=== PATIENT | female | born 1985 | race Caucasian/White ===

== ENCOUNTER 2018-04-22 10:25 | Outpatient (CLI) | payer BC, SELFPAY ==
--- NOTE | 2018-04-22 10:16 | DI.RAD_ITS ---
SYMPTOMS/DIAGNOSIS: F/U ORIF LEFT ANKLE: There are no prior comparison exams. There is swelling of both malleoli. There is hardware in both malleoli. A nondisplaced fracture of the distal fibula is faintly visible and shows healing. Lucency is faintly seen in the medial malleolus. IMPRESSION: Intact distal tibial and fibular hardware and healing fractures.
== END 2018-04-22 10:45 ==
PROVIDERS: PCP Nurse Practitioner Family; Visit Provider Orthopaedic Surgery
DX: S82.852A Displaced trimalleolar fracture of left lower leg, initial encounter for closed fracture (principal)
CPT/HCPCS: 73610

== ENCOUNTER 2018-05-20 09:55 | Outpatient (CLI) | payer BC, SELFPAY ==
--- NOTE | 2018-05-20 09:50 | DI.RAD_ITS ---
SYMPTOM/DIAGNOSIS: F/U LEFT ANKLE: When compared with the previous examination of 04/22/18, there has been no interval change in the position of the fracture fragments or orthopedic hardware.
== END 2018-05-20 10:15 ==
PROVIDERS: PCP Nurse Practitioner Family; Visit Provider Orthopaedic Surgery
DX: S82.852A Displaced trimalleolar fracture of left lower leg, initial encounter for closed fracture (principal)
CPT/HCPCS: 73610

== ENCOUNTER 2018-06-23 09:35 | Outpatient (CLI) | payer BC, SELFPAY ==
--- NOTE | 2018-06-23 09:44 | DI.RAD_ITS ---
SYMPTOM/DIAGNOSIS: F/U ORIF LEFT ANKLE LEFT ANKLE: When compared with the previous examination the medial and lateral malleolar fractures remain in excellent position. Orthopaedic hardware in place. There is nothing to suggest that healing is not progressing satisfactorily at the present time.
== END 2018-06-23 09:55 ==
PROVIDERS: PCP Nurse Practitioner Family; Visit Provider Physician Assistant
DX: S82.852D Displaced trimalleolar fracture of left lower leg, subsequent encounter for closed fracture with routine healing (principal)
CPT/HCPCS: 73610

== ENCOUNTER 2018-11-02 16:49 | Outpatient (REF) | payer BC, SELFPAY ==
[2018-11-02 21:30] LABS: TSH (W/Ref FT4) 1.62 uIU/mL (0.36-3.74)
== END 2018-11-02 17:09 ==
LOC: NCHCN 16:49
PROVIDERS: PCP Nurse Practitioner Family; Visit Provider Nurse Practitioner Family
DX: Z00.00 Encounter for general adult medical examination without abnormal findings (principal); R53.83 Other fatigue; F41.8 Other specified anxiety disorders; B00.1 Herpesviral vesicular dermatitis; L98.9 Disorder of the skin and subcutaneous tissue, unspecified; E66.9 Obesity, unspecified; M25.561 Pain in right knee
CPT/HCPCS: 84443

== ENCOUNTER 2019-02-23 14:03 | Outpatient (REF) | payer BC, SELFPAY ==
[2019-02-23 22:27] LABS: Abs Immature Grans 0.01 k/cumm (0.0-0.09); Absolute Basophil Count 0.01 k/cumm (0.0-0.2); Absolute Eosinophil Count 0.07 k/cumm (0.0-0.7); Absolute Lymphocyte Count 1.69 k/cumm (1.2-3.4); Absolute Monocyte Count 0.44 k/cumm (0.11-0.7); Absolute Neutrophil Count 4.98 k/cumm (1.2-6.7); Basophils % 0.1; HCT 40.4 % (36.0-46.0); HGB 14.5 g/dL (12.0-15.5); Immature Grans % 0.1; Lymphocytes % 23.5; Mean Corp. HGB Concentration 35.9 g/dL (32.0-36.0); Mean Corpuscular Hemoglobin 31.5 pg (27.0-33.0); Mean Corpuscular Volume 87.8 fL (80-95); Mean Platelet Volume 12.5 fL (8.0-11.0); Monocytes % 6.1; Neutrophils % 69.2; Platelet Count 282 x1000/uL (130-400); RBC Distribution Width 11.7 % (11.7-14.6)
[2019-02-23 22:34] LABS: Iron 127 ug/dL (50-170); Total Iron Binding Capacity 291 ug/dL (250-450); Transferrin Sat 44 % (15-50)
[2019-02-23 22:56] LABS: Anion Gap 11.7 mmol/L (3-11); BUN 8 mg/dL (7-18); CO2 23.3 mmol/L (21.0-32.0); CREATININE 0.76 mg/dL (0.55-1.02); Chloride 107 mmol/L (98-107); Glucose 98 mg/dL (74-106); Magnesium 1.8 mg/dL (1.8-2.4); Potassium 3.7 mmol/L (3.5-5.1); Sodium 142 mmol/L (136-145); TSH (W/Ref FT4) 1.25 uIU/mL (0.36-3.74)
== END 2019-02-23 14:23 ==
LOC: NCHCN 14:03
PROVIDERS: PCP Nurse Practitioner Family; Visit Provider Nurse Practitioner Family
DX: R51 Headache (principal)
CPT/HCPCS: 80048; 83540; 83550; 83735; 84443; 85025

== ENCOUNTER 2019-12-02 10:51 | Outpatient (REF) | payer BC, SELFPAY ==
--- NOTE | 2019-12-02 10:00 | PAPFT_PTH ---
PATIENT: Sierra Mcconnell LOC: [facility] U#:[id number] AGE/SX: 34/F ROOM: RE12/02/[address]: Dina Maciel : 1985 BED: DIS: 12/02/2019 SPEC #: [id number] RECD: 12/03/19 12:46 STATUS: MARGOT REJuan Antonio #: [id number] SULY: 12/02/19 10:[address]: Dina Maciel DEPT: [facility] Cytology RECD BY: Mary Suarez Tissues: 1 - CX/ENDOCX FOR PAP SMEARS Procedures: PAP THIN PREP/UVM Screening HPV DNA PROBE Comments: [id number] (CHLAMYDIA/GC)
[2019-12-06 12:29] LABS: Hepatitis C Ab w Rflx HCV PCR Negative (Negative)
[2019-12-06 13:45] LABS: Chlamydia Result Negative (Negative); GC Result Negative (Negative)
== END 2019-12-02 11:11 ==
LOC: NCHCN 10:51
PROVIDERS: PCP Nurse Practitioner Family; Visit Provider Nurse Practitioner Family
DX: H81.10 Benign paroxysmal vertigo, unspecified ear (principal); M76.62 Achilles tendinitis, left leg; R51 Headache; B00.1 Herpesviral vesicular dermatitis; L98.9 Disorder of the skin and subcutaneous tissue, unspecified; Z11.59 Encounter for screening for other viral diseases; Z12.4 Encounter for screening for malignant neoplasm of cervix; Z11.51 Encounter for screening for human papillomavirus (HPV)
CPT/HCPCS: 86803; 87491; 87591; 88142; 87624

== ENCOUNTER 2020-10-11 02:53 | Outpatient (CLI) | payer BC, SELFPAY ==
[2020-10-11 15:21] LABS: Kit/Specimen SENT
[2020-10-11 15:39] LABS: Abs Immature Grans 0.07 10^3/uL (0.0-0.06); Absolute Basophil Count 0.03 10^3/uL (0.0-0.2); Absolute Eosinophil Count 0.08 10^3/uL (0.0-0.7); Absolute Lymphocyte Count 1.86 10^3/uL (1.2-3.4); Absolute Monocyte Count 0.57 10^3/uL (0.1-0.8); Absolute Neutrophil Count 6.22 10^3/uL (1.2-6.7); Basophils % 0.3; Eosinophils % 0.9; HCT 38.8 % (36.0-46.0); HGB 13.9 g/dL (11.2-15.7); Immature Grans % 0.8; Lymphocytes % 21.1; MCH 31.2 pg (27.0-33.0); MCHC 35.8 % (32.0-36.0); MCV 87.2 fL (80-95); MPV 11.3 fL (8.0-11.0); Monocytes % 6.5; Neutrophils % 70.4; Nucleated RBC 0 %; Platelet Count 217 10^3/uL (130-400); RBC 4.45 10^6/uL (3.93-5.22); RDW 12.3 % (11.7-14.6); RDW-SD 39.1 fL; WBC 8.83 10^3/uL (4.4-10.8)
[2020-10-11 16:17] LABS: TSH (W/Ref FT4) 1.38 uIU/mL (0.36-3.74)
[2020-10-12 10:37] LABS: Hepatitis B Surface Ag Negative (Negative)
[2020-10-12 10:45] LABS: Hepatitis C Ab w Rflx HCV PCR Negative (Negative)
[2020-10-12 11:04] LABS: HIV-1/2 Ag & Ab Screen Negative (Negative)
[2020-10-12 11:08] LABS: Rubella IgG Ab (UVM) Positive (See Note)
[2020-10-12 12:50] LABS: Varicella IgG Antibody Positive (See Note)
[2020-10-13 10:32] LABS: Syphilis Total Ab w/Reflex Nonreactive (Nonreactive)
[2020-10-17 17:35] LABS: Specimen WB Whole Blood
[2020-10-20 14:13] LABS: Result Summary NEGATIVE; Specimen WB Whole Blood
== END 2020-10-11 02:54 | disposition home or self-care (01) ==
LOC: LBO 02:53
PROVIDERS: PCP Nurse Practitioner Family; Visit Provider Advanced Practice Midwife
DX: Z34.91 Encounter for supervision of normal pregnancy, unspecified, first trimester (principal); Z36.89 Encounter for other specified antenatal screening; Z11.4 Encounter for screening for human immunodeficiency virus [HIV]; Z11.59 Encounter for screening for other viral diseases; Z01.84 Encounter for antibody response examination
CPT/HCPCS: 81329; 86787; 86803; 86850; 86900; 86901; 87340; 87389; 81220; 84443; 85025; 86762; 86780

== ENCOUNTER 2020-10-11 16:03 | Outpatient (REF) | payer BC, SELFPAY ==
[2020-10-11 16:09] LABS: *AMPHETAMINES SCREEN URINE Negative (Negative); *BARBITURATES SCREEN URINE Negative (Negative); *BENZODIAZEPINES SCREEN URINE Negative (Negative); Cannabinoids THC Negative (Negative); Cocaine Screen,Urine Negative (Negative); METHADONE URINE SCREEN Negative (Negative); OPIATES URINE SCREEN Negative (Negative)
[2020-10-11 16:10] LABS: Tricyclic Antidepressants Negative (Negative)
[2020-10-18 10:03] LABS: Buprenorphine Negative ng/mL (Cutoff: 5.0); Norbuprenorphine Negative ng/mL (Cutoff: 2.5)
== END 2020-10-11 16:04 | disposition home or self-care (01) ==
LOC: LBN 16:03
PROVIDERS: PCP Nurse Practitioner Family; Visit Provider Advanced Practice Midwife
DX: Z34.91 Encounter for supervision of normal pregnancy, unspecified, first trimester (principal)
CPT/HCPCS: 80307; 87086

== ENCOUNTER 2021-02-05 01:51 | Outpatient (CLI) | payer BC, SELFPAY ==
--- NOTE | 2021-02-05 06:00 | DI.US_ITS ---
Exam(s) US OB EVONNE WEIGHT EXAM: US OB EVONNE WEIGHT CLINICAL HISTORY: growth and placental location,Z34.90. TECHNIQUE: Transabdominal obstetrical ultrasound was performed. COMPARISON: US US OB 2-3 TRIMESTER from 12/01/2020 FINDINGS: There is a single viable intrauterine gestation with cardiac activity identified-141 bpm The fetus is presently in trans position . Amniotic fluid: There is a normal amount of amniotic fluid with an EVONNE of 19.2cm. Placental location: The placenta is posterior grade 0-1,with no evidence of placenta previa.The dista nce from the tip of the placenta to the internal cervical os is [address] this at approximately 20 weeks and 6 days gestational age, implying DANIEL of April 24, 2021. BPD measures 29 weeks and 3 days HC measures 30 weeks AC measures 27 weeks and 6 days FL measures 27 weeks and 6 days Estimated weight is 1188 gm-2 pounds, 10 ounces Fetus is at the 56th percentile on the Hadlock scale. IMPRESSION:: Viable intrauterine gestation, as described above. Normal amount of amniotic fluid Posterior placenta with no evidence of placenta previa. Fetus is at the 56th percentile on the Hadlock scale. DATA REPOSITORY:
== END 2021-02-05 02:11 ==
PROVIDERS: PCP Nurse Practitioner Family; Visit Provider Advanced Practice Midwife
DX: Z34.92 Encounter for supervision of normal pregnancy, unspecified, second trimester (principal)
CPT/HCPCS: 76816

== ENCOUNTER 2021-02-06 02:15 | Outpatient (CLI) | payer BC, SELFPAY ==
[2021-02-06 08:42] LABS: HCT 39.6 % (36.0-46.0); HGB 13.7 g/dL (11.2-15.7); MCH 31.8 pg (27.0-33.0); MCHC 34.6 % (32.0-36.0); MCV 91.9 fL (80-95); Platelet Count 177 10^3/uL (130-400); RBC 4.31 10^6/uL (3.93-5.22); RDW 12.3 % (11.7-14.6); RDW-SD 41.1 fL; WBC 9.96 10^3/uL (4.4-10.8)
[2021-02-06 08:48] LABS: Glucose,1 Hr (Glucola) 101 mg/dL (80-140)
== END 2021-02-06 02:16 | disposition home or self-care (01) ==
LOC: LBO 02:15
PROVIDERS: PCP Nurse Practitioner Family; Visit Provider Advanced Practice Midwife
DX: Z34.92 Encounter for supervision of normal pregnancy, unspecified, second trimester (principal)
CPT/HCPCS: 36415; 82950; 85027; 86850; 90384

== ENCOUNTER 2021-02-09 16:20 | Outpatient (CLI) | payer BC, SELFPAY ==
[2021-02-09 16:27] VITALS: BP 135/81; PULSE 80; TEMP 36.6
--- NOTE | 2021-02-09 16:57 | W.OBNST ---
Date of service: 02/09/21 Time of Service: 16:40 NST Evaluation Reason for NST Reasons for Nonstress Test: DECREASED MOVEMENT Gestational Age Gestational Age in Weeks and Days: 28 Weeks and 2Days Test and Monitor Explained Test/Monitor Explained: Test Explained, Monitor Explained and Patient Verbalized Understanding Vital Signs Blood Pressure: 135/81 Pulse: 80 Temperature: 97.9 F NST Information Date on Monitor: 02/09/21 Time on Monitor: 16:24 Date off Monitor: 02/09/21 Time off Monitor: 16:45 Total Time on Monitor: 21 NST Interventions: PO Hydration and Other Contraction Frequency: 0 NST Evaluation Patient States Movement: Present FHR Baseline: 130 Variability: Moderate 6-25 bpm Accelerations: 10x10 Decelerations: None NST Results: Reactive Note NST Note Note: Sierra presented after hours for NST due to reported decreased movement today. NST is reactive and reassuring and patient is aware of movement once on monitor. She is reassured and discharged to home to return for next scheduled visit. EDWARD NST Reviewed and Verified by: Vielka Riojas
[2021-02-09 16:58] VITALS: BP 135/81; PULSE 80; TEMP 36.6
== END 2021-02-09 16:50 | disposition home or self-care (01) ==
LOC: BCD 16:21 → OBS 16:22
PROVIDERS: PCP Nurse Practitioner Family; Visit Provider Obstetrics & Gynecology Gynecology
DX: O36.8130 Decreased fetal movements, third trimester, not applicable or unspecified (principal); Z3A.28 28 weeks gestation of pregnancy
CPT/HCPCS: 59025

== ENCOUNTER 2021-04-04 18:06 | Outpatient (REF) | payer BC, SELFPAY ==
[2021-04-04 18:21] LABS: *AMPHETAMINES SCREEN URINE Negative (Negative); *BARBITURATES SCREEN URINE Negative (Negative); *BENZODIAZEPINES SCREEN URINE Negative (Negative); Cannabinoids THC Negative (Negative); Cocaine Screen,Urine Negative (Negative); METHADONE URINE SCREEN Negative (Negative); OPIATES URINE SCREEN Negative (Negative)
[2021-04-04 18:29] LABS: Tricyclic Antidepressants Negative (Negative)
[2021-04-13 12:23] LABS: Buprenorphine Negative ng/mL (Cutoff: 5.0); Norbuprenorphine Negative ng/mL (Cutoff: 2.5)
== END 2021-04-04 18:07 | disposition home or self-care (01) ==
LOC: LBN 18:06
PROVIDERS: PCP Nurse Practitioner Family; Visit Provider Advanced Practice Midwife
DX: Z34.93 Encounter for supervision of normal pregnancy, unspecified, third trimester (principal)
CPT/HCPCS: 80307; 87081

== ENCOUNTER 2021-04-18 15:56 | Outpatient (CLI) | payer BC, SELFPAY ==
[2021-04-18 16:11] VITALS: BP 138/83; PULSE 92
[2021-04-18 16:25] VITALS: BP 150/84; PULSE 82
[2021-04-18 16:45] VITALS: BP 138/84; PULSE 82; TEMP 36.5
[2021-04-18 16:46] VITALS: BP 136/86; PULSE 86
[2021-04-18 17:09] LABS: HCT 39.9 % (36.0-46.0); HGB 14.1 g/dL (11.2-15.7); MCH 32.2 pg (27.0-33.0); MCHC 35.3 % (32.0-36.0); MCV 91.1 fL (80-95); MPV 11.4 fL (8.0-11.0); Platelet Count 151 10^3/uL (130-400); RBC 4.38 10^6/uL (3.93-5.22); RDW 12.7 % (11.7-14.6); RDW-SD 41.3 fL; WBC 9.65 10^3/uL (4.4-10.8)
[2021-04-18 17:16] LABS: COMMENT (LAB VIEW ONLY) 26.42 mg/dL; PROTEIN < 6.0 mg/dL
[2021-04-18 17:21] LABS: ALT 49 U/L (14-59); AST 23 U/L (15-37); Albumin 2.8 g/dL (3.4-5.0); Alkaline Phosphatase 111 U/L (46-116); Anion Gap 10.9 mmol/L (3-11); BUN 8 mg/dL (7-18); Bilirubin, Total 0.5 mg/dL (0.2-1.0); CO2 22.1 mmol/L (21.0-32.0); CREATININE 0.5 mg/dL (0.55-1.02); Calcium 8.3 mg/dL (8.5-10.1); Chloride 104 mmol/L (98-107); Glucose 104 mg/dL (74-106); Potassium 3.5 mmol/L (3.5-5.1); Sodium 137 mmol/L (136-145); Total Protein 6.5 g/dL (6.4-8.2); Uric Acid 4.1 mg/dL (2.6-6.0)
--- NOTE | 2021-04-18 17:28 | W.OBNST ---
Date of service: 04/18/21 Time of Service: 17:28 NST Evaluation Reason for NST Reasons for Nonstress Test: OTHER, SEE COMMENT Reason for NST Other: Elevated BP in office Gestational Age Gestational Age in Weeks and Days: 38 Weeks and 0Days Test and Monitor Explained Test/Monitor Explained: Test Explained, Monitor Explained and Patient Verbalized Understanding Vital Signs Blood Pressure: 138/84 Pulse: 82 Temperature: 97.7 F Urine Results Urine Protein: Negative Urine Ketones: Negative Urine Glucose: Negative Urine Blood: Negative NST Information Date on Monitor: 04/18/21 Time on Monitor: 16:03 Date off Monitor: 04/18/21 Time off Monitor: 17:00 Total Time on Monitor: 57 NST Interventions: PO Hydration and Notify Provider Contraction Frequency: none NST Evaluation Patient States Movement: Present FHR Baseline: 125 Variability: Moderate 6-25 bpm Accelerations: 15x15 Decelerations: None NST Results: Reactive Note NST Note Note: B.P. elevated at the office. NST reactive. B.P. recheck was 136/86. Preeclampsia labs drawn. No edema, Denies headache or visual changes. Await results. NST Reviewed and Verified by: Vielka Gallardo
[2021-04-18 17:29] VITALS: BP 138/84; PULSE 82; TEMP 36.5
== END 2021-04-18 17:15 | disposition home or self-care (01) ==
LOC: BCD 15:58 → OBS 16:00
PROVIDERS: PCP Nurse Practitioner Family; Visit Provider Advanced Practice Midwife
DX: O26.893 Other specified pregnancy related conditions, third trimester (principal); R03.0 Elevated blood-pressure reading, without diagnosis of hypertension; Z3A.38 38 weeks gestation of pregnancy
CPT/HCPCS: 59025; 80053; 85027; 82565; 84156; 84550

== ENCOUNTER 2021-04-21 09:44 | Inpatient (IN) | payer BC, SELFPAY ==
[2021-04-21] VITALS (11 sets, daily range): BP systolic 129–157; BP diastolic 79–94; PULSE 76–111; RESP 16–20; TEMP 36.5–37.1; O2SAT 96–99
--- NOTE | 2021-04-21 09:59 | PDOC.NST_ITS ---
Date of service: 04/21/21 Time of Service: 09:30 NST Evaluation Reason for NST Reasons for Nonstress Test: GESTATIONAL HYPERTENSION Gestational Age Gestational Age in Weeks and Days: 38 Weeks and 3Days Test and Monitor Explained Test/Monitor Explained: Test Explained, Monitor Explained and Patient Verbalized Understanding NST Information Date on Monitor: 04/21/21 Time on Monitor: 08:03 Date off Monitor: 04/21/21 Time off Monitor: 08:36 Total Time on Monitor: 33 NST Interventions: PO Hydration NST Evaluation Patient States Movement: Present FHR Baseline: 130 Variability: Moderate 6-25 bpm Accelerations: 15x15 Decelerations: None NST Results: Reactive Note NST Note Note: NST due to gestational hypertension. No signs of pre-eclampsia and patient had negative pre-eclampsia lab work up 3 days ago. Today NST is reactive and reassuring. BP is 150/90 and 147/89. 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 Patel. We plan to move forward with cervical ripening and induction of labor due to BP's. VE closed /50/ medium consistency/ VTX -2. / cervix mid position. Admission plan reviewed with patient who agrees to this plan. EDWARD NST Reviewed and Verified by: Vielka Riojas
--- NOTE | 2021-04-21 10:02 | HPE_ITS ---
Date of service: 04/21/21 Time of Service: 10:02 Assessment and Plan Assessment and plan (1) Gestational hypertension, third trimester: Start date: 04/21/21 Start time: 10:15 Status: Acute Assessment and plan: 1. Reviewed diagnosis and risk of expectant management vs risk of induction of labor with patient, patient verbalizes understanding and agrees to move forward with induction of labor. 2. Consult with Dr. Patel has been done and agrees to my plan to do cervical ripening and move toward delivery. 3. Pre-eclampsia signs are negative but will repeat labs with admission labs today. 4. COVID screen done. 5. Will place cervidil and reassess in 12 hours for change in cervix or as indicated by maternal / condition. 6. Expect vaginal delivery. EDWARD OB-HPI Labor/Delivery History of Present Illness Reason for Visit: NST Chief Complaint: Other (unscheduled cervical ripening and induction of labor due to gestational hypertension.EDWARD). DANIEL Calculator Estimated Delivery Date Method Current WG Current Estimate 05/02/21 LMP (Certain) 38w 3d Other Estimates 04/29/21 Ultrasound #1 38w 6d Comments: Sierra presented to for NST due to elevated BP in office 04/18/21. She had NST that day and pre-eclampsia work up which was negative for pre- eclampsia. She presents today with BP 157/93 with repeat of 151/91 and 146/94. These BP's are elevated from BP's on 04/18/21 of 138/83 and 136/86. Today she continues to deny any symptoms of pre-eclampsia and her urine dip remains negative for protein. Diagnosis of gestational hypertension made. 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 Admission today with COVID test and pre-eclampsia labs repeated with admission labs. Will place cervidil and reassess cervix 12 hours after insertion and determine plan of care at that time. EDWARD History of Present Expected Delivery Route/Plan - CNM FOB/boyfriend - Bryan Angela (first child) BB- Ramón, yes to circ GBS negative Hopes to use tub, nitrous, have unmedicated Specific Issues/Plan 1. Desires all genetic screening, drawn 10/11/20 1a. CF & SMA negative, [place] low prob x3, male fetus 2. Rh neg, discuss with Anne Esquivel @ 28 wks- received. 3. Posterior placental tip is 2 cm from internal os at 18 wk sono 3a. Scan repeated at 28 wks 02/05: placental tip 4 cm from os, not low lying. EVONNE 19, 56th percentile growth 4. Back pain - PT visits and does stretches at home - wears a abdominal support. 5. Lower abominal discomfort - relieved by abdominal support 6. Sierra and Bryan received covid vaccine. Sierra will be receiving the booster. Sierra recieved TDAP 6a. Covid exposure - quarantine and testing. 7. History of anxiety - reviewed symptoms of post mood disorders Assessment: History Reviewed & Current Informed Consent Informed Consent: Section Delivery (discussed there is some increased risk of delivery due to induction, verbalizes understanding.), Induction of Labor (discussed diagnosis of gestational hypertension and cervical ripening and pitocin induction, discussed risks, benefits and alternatives. Patient agrees to move forward at this time. KH) and Risk,Benefits,Alternatives Discussed Review of Systems All systems reviewed & are unremarkable except as noted in HPI and below PFSH All Active Problems Gestational hypertension, third trimester (Acute) Closed trimalleolar fracture of left ankle (Acute) ORIF: 04/08/18 Location: [place], [place] History of ankle surgery (Acute) Family history of genetic disorder (Acute) Change in skin mole (Acute) Back pain affecting in second trimester (Acute) Rh negative state in antepartum period (Acute) (Acute) Family History Maternal Cousin Potter syndrome x 2 pregnancies - Mat cousins children x 2 Other abnormal clinical finding Maternal cousin with a disorder of muscle fibers, unable to walk or speak Maternal Cousin Muscular dystrophy Mother Thyroid disease Sister Thyroid disease Sister Thyroid disease graves Maternal Aunt Bipolar 1 disorder Sister Depression Social History Smoking risk assessment performed?: No History History 2 Para 0 Hx # Term Pregnancies 0 Multiple births 0 Hx # Pregnancies 0 Ectopic pregnancies 0 AB induced 1 Hx Number of Living Children 0 AB spontaneous 0 Meds Allergies and Home Medications Allergies Allergy/AdvReac Type Severity Reaction Status Date / Time No Known Allergies Allergy Verified 04/21/21 10:14 Home Medications Medication Instructions Recorded Confirmed Type prenat.vits,shaheed,ost-ynma-keccl 1 tab PO DAILY 08/23/20 04/21/21 History Exam Physical Exam Vital signs: Pulse BP 97 H 146/94 H 04/21/21 08:30 04/21/21 08:40 Vital Signs Reviewed: Yes Constitutional Constitutional: no acute distress (anxious about need to deliver before her due date but otherwise feels well. KH) Detailed Labor and Delivery Exam Dilation: 0 Effacement (%): 50 station: -2 Cervix position: mid Consistency: medium Gallardo Score: Cervical Points Exam 0 1 2 3 Dilation Closed 1-2cm 3-4 cm 5-6cm Effacement 0-30% 40-50% 60-70% 80% Consistency Firm Medium Soft Station -3 -2 -1,0 +1,+2 Position Posterior Mid Anterior GALLARDO Score(Cervical Ripeness Score): 4 Amniotic Membrane Status: Intact Contraction Frequency(min): 0 Fetus A Heart Rate Baseline: 130 Monitor Accelerations: 15 X 15 Monitor Decelerations: None Variability: Moderate (6-25 BPM) Presentation: Vertex (confirmed by US, LENKA) Est. Weight: 7 lb HEENT Exam HEENT Exam: Normal Neck Exam Neck Exam: Normal Chest/Brest/Axilla Exam Chest Exam: Normal Breast Exam Breast Exam: Not Done Respiratory Exam Respiratory Exam: Normal Cardiovascular Exam Cardiovascular Exam: Normal (Heart RRR, no murmur, BP elevated) Abdominal Exam Abdominal Exam: Normal Rectal Exam Rectal Exam: Not Done Exam Exam: Normal Extremities Exam Extremities Exam: Normal Back/Spine/Pelvis Exam Back Exam: Not Done Pelvis Adequate: Yes Skin Exam Skin Exam: Normal Neurological Exam Neurological Exam: Normal Detailed Neurological Exam Neurological: Present alert, oriented X3, normal reflexes, normal tone, vision grossly intact, hearing grossly intact and normal speech Psychiatric Exam Psychiatric Exam: Normal Results Results Group Beta Strep: Negative Blood Type: O- Rubella Status: Immune Varicella Immunity: Immune Risk Assessment Risk for Shoulder Dystocia Historical/Initial OB: NEGATIVE FOR: Pelvic Abnormality, Pre- BMI>30, Previous Shoulder Dystocia or Previous Macrosomia 40 Weeks: NEGATIVE FOR: EFW> 4500 gms, Maternal Weight Gain >40lb or Post Dates Increased Risk?: No Delivery Plan @ 36wks: NVD anticipated. EDWARD Delivery Plan @ 40 wks: IOL at 38w 3d due to gestational hypertension without significant proteinuria Risk for Pre-Eclampsia Date Initiated/Initials: not indicated. jk Yes, if one or more: NEGATIVE FOR: Hx Pre-E/Gest HTN, Chronic HTN, Multiple Gestation, Pre-gestational DM, Renal Disease, Systemic Lupus or APA Syndrome Yes, if 2 or more: POSITIVE FOR: Nulliparity; NEGATIVE FOR: Age>= 35 yrs, >10yr btwn pregnancies, BMI>30, ethinicty, Mother/Sister w/ Pre-E or Previous IUGR Risk for Post- Hemorrhage Initial: NEGATIVE FOR: Multiple Gestation, Previous PPH, Known Clotting Deficiency, Grand Multiparity or Anticoagulation At Risk?: Yes (slight increased risk at admission due to need for cervical ripe katherine ) Counseled re: Active Management: Yes Date/Initials: 04/21/21 EDWARD Risks Reviewed Risks Reviewed Upon Admission: Yes
[2021-04-21 10:27] LABS: Source Nasal/Nares
[2021-04-21 10:31] LABS: HCT 41.8 % (36.0-46.0); HGB 14.5 g/dL (11.2-15.7); MCH 31.5 pg (27.0-33.0); MCHC 34.7 % (32.0-36.0); MCV 90.7 fL (80-95); Platelet Count 162 10^3/uL (130-400); RBC 4.61 10^6/uL (3.93-5.22); RDW 12.6 % (11.7-14.6); RDW-SD 41.2 fL; WBC 10.58 10^3/uL (4.4-10.8)
[2021-04-21 10:43] LABS: ALT 40 U/L (14-59); AST 23 U/L (15-37); Albumin 2.9 g/dL (3.4-5.0); Alkaline Phosphatase 112 U/L (46-116); Anion Gap 9.8 mmol/L (3-11); BUN 6 mg/dL (7-18); Bilirubin, Total 0.6 mg/dL (0.2-1.0); CO2 21.2 mmol/L (21.0-32.0); CREATININE 0.5 mg/dL (0.55-1.02); Calcium 8.8 mg/dL (8.5-10.1); Chloride 105 mmol/L (98-107); Glucose 84 mg/dL (74-106); LDH 168 U/L (81-234); Potassium 3.7 mmol/L (3.5-5.1); Sodium 136 mmol/L (136-145); Total Protein 6.6 g/dL (6.4-8.2); Uric Acid 4.3 mg/dL (2.6-6.0)
[2021-04-21 11:08] LABS: COVID-19 PCR Negative (Negative)
--- NOTE | 2021-04-21 11:15 | PGE_ITS ---
Date of service: 04/21/21 Time of Service: 11:15 Informed Consent Informed Consent: Section Delivery (discussed there is some increased risk of delivery due to induction, verbalizes understanding.), Induction of Labor (discussed diagnosis of gestational hypertension and cervical ripening and pitocin induction, discussed risks, benefits and alternatives. Patient agrees to move forward at this time. KH) and Risk,Benefits,Alternatives Discussed Contractions Monitor Mode: External Contraction Frequency(min): 0 Fetus A Monitor: External (US) Heart Rate Baseline: 120 Presentation: Cephalic Variability: Moderate (6-25 BPM) Categories: Category I Accelerations: 15 X 15 Decelerations: None Assessment and Plan Assessment and plan (1) Gestational hypertension, third trimester: Start date: 04/21/21 Start time: :18 Status: Acute Assessment and plan: 1. Cervidil is not available at this time for administration per pharmacy, aligner typewriter will change order to misoprostol PO and rev iewed medication change and use/expected outcome with patient and her , Bryan, who verbalize understanding and agree to this change in plan. KH Objective Abnormal lab results 04/21/21 04/21/21 Range/Units 10:20 10:20 MPV 12.0 H (8.0-11.0) fL BUN 6 L (7-18) mg/dL Creatinine 0.5 L (0.55-1.02) mg/dL Albumin 2.9 L (3.4-5.0) g/dL Pulse BP 97 H 146/94 H 04/21/21 08:30 04/21/21 08:40 Laboratory Results WBC 10.58 10^3/uL (4.4-10.8) 04/21/21 10:20 RBC 4.61 10^6/uL (3.93-5.22) 04/21/21 10:20 Hgb 14.5 g/dL (11.2-15.7) 04/21/21 10:20 Hct 41.8 % (36.0-46.0) 04/21/21 10:20 MCV 90.7 fL (80-95) 04/21/21 10:20 MCH 31.5 pg (27.0-33.0) 04/21/21 10:20 MCHC 34.7 % (32.0-36.0) 04/21/21 10:20 RDW 12.6 % (11.7-14.6) 04/21/21 10:20 Plt Count 162 10^3/uL (130-400) 04/21/21 10:20 MPV 12.0 fL (8.0-11.0) H 04/21/21 10:20 Sodium 136 mmol/L (136-145) 04/21/21 10:20 Potassium 3.7 mmol/L (3.5-5.1) 04/21/21 10:20 Chloride 105 mmol/L (98-107) 04/21/21 10:20 Carbon Dioxide 21.2 mmol/L (21.0-32.0) 04/21/21 10:20 Anion Gap 9.8 mmol/L (3-11) 04/21/21 10:20 BUN 6 mg/dL (7-18) L 04/21/21 10:20 Creatinine 0.5 mg/dL (0.55-1.02) L 04/21/21 10:20 Estimated GFR/1.73 m2 >= 60.00 (mL/min/1.73m2) 04/21/21 10:20 Glucose 84 mg/dL (74-106) 04/21/21 10:20 Uric Acid 4.3 mg/dL (2.6-6.0) 04/21/21 10:20 Calcium 8.8 mg/dL (8.5-10.1) 04/21/21 10:20 Total Bilirubin 0.6 mg/dL (0.2-1.0) 04/21/21 10:20 AST 23 U/L (15-37) 04/21/21 10:20 ALT 40 U/L (14-59) 04/21/21 10:20 Alkaline Phosphatase 112 U/L (46-116) 04/21/21 10:20 Lactate Dehydrogenase 168 U/L (81-234) 04/21/21 10:20 Total Protein 6.6 g/dL (6.4-8.2) 04/21/21 10:20 Albumin 2.9 g/dL (3.4-5.0) L 04/21/21 10:20 COVID-19 Source Nasal/Nares 04/21/21 10:10 SARS-CoV-2 (PCR) Negative (Negative) 04/21/21 10:10 Vital Signs Reviewed: Yes Objective Narrative Objective Narrative: repeat BP pending at this time. 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 EDWARD . Results Hemoglobin/Hematocrit: Hgb 14.5 g/dL (11.2-15.7) 04/21/21 10:20 Hct 41.8 % (36.0-46.0) 04/21/21 10:20 Abnormal Lab Findings: Abnormal Labs 04/21/21 04/21/21 10:20 10:20 MPV 12.0 H BUN 6 L Creatinine 0.5 L Albumin 2.9 L
[2021-04-21] MEDS: miSOPROStol 25 MCG TAB PO ×4 (11:33→23:53)
[2021-04-21 14:58] LABS: COMMENT (LAB VIEW ONLY) 10.29 mg/dL; PROTEIN < 6.0 mg/dL
--- NOTE | 2021-04-21 15:21 | W.PM.OBNL1 ---
Date of service: 04/21/21 Time of Service: 15:21 Informed Consent Informed Consent: Section Delivery (discussed there is some increased risk of delivery due to induction, verbalizes understanding.), Induction of Labor (discussed diagnosis of gestational hypertension and cervical ripening and pitocin induction, discussed risks, benefits and alternatives. Patient agrees to move forward at this time. KH) and Risk,Benefits,Alternatives Discussed Pelvic Exam Comments: VE deferred. KH Contractions Monitor Mode: External Contraction Frequency(min): irregular Intensity: Mild Fetus A Monitor: External (US) Heart Rate Baseline: 130 Presentation: Cephalic Variability: Moderate (6-25 BPM) Categories: Category I Decelerations: None Assessment and Plan Assessment and plan (1) Gestational hypertension, third trimester: Status: Acute Assessment and plan: 1. continue with misoprostol 25 mcg orally every 4 hours for a total of 4 doses then encourage sleep overnight with restart of cervical ripening in am 2. BP stabilized with rest. 129/88 at this time, patient denies FERNANDEZ, visual disturbance or epigastric pain, has been able to nap some KH Objective Abnormal lab results 04/21/21 04/21/21 Range/Units 10:20 10:20 MPV 12.0 H (8.0-11.0) fL BUN 6 L (7-18) mg/dL Creatinine 0.5 L (0.55-1.02) mg/dL Albumin 2.9 L (3.4-5.0) g/dL Temp Pulse Resp BP 97.9 F 91 H 16 129/88 04/21/21 13:31 04/21/21 15:20 04/21/21 11:37 04/21/21 15:20 Laboratory Results WBC 10.58 10^3/uL (4.4-10.8) 04/21/21 10:20 RBC 4.61 10^6/uL (3.93-5.22) 04/21/21 10:20 Hgb 14.5 g/dL (11.2-15.7) 04/21/21 10:20 Hct 41.8 % (36.0-46.0) 04/21/21 10:20 MCV 90.7 fL (80-95) 04/21/21 10:20 MCH 31.5 pg (27.0-33.0) 04/21/21 10:20 MCHC 34.7 % (32.0-36.0) 04/21/21 10:20 RDW 12.6 % (11.7-14.6) 04/21/21 10:20 Plt Count 162 10^3/uL (130-400) 04/21/21 10:20 MPV 12.0 fL (8.0-11.0) H 04/21/21 10:20 Sodium 136 mmol/L (136-145) 04/21/21 10:20 Potassium 3.7 mmol/L (3.5-5.1) 04/21/21 10:20 Chloride 105 mmol/L (98-107) 04/21/21 10:20 Carbon Dioxide 21.2 mmol/L (21.0-32.0) 04/21/21 10:20 Anion Gap 9.8 mmol/L (3-11) 04/21/21 10:20 BUN 6 mg/dL (7-18) L 04/21/21 10:20 Creatinine 0.5 mg/dL (0.55-1.02) L 04/21/21 10:20 Estimated GFR/1.73 m2 >= 60.00 (mL/min/1.73m2) 04/21/21 10:20 Glucose 84 mg/dL (74-106) 04/21/21 10:20 Uric Acid 4.3 mg/dL (2.6-6.0) 04/21/21 10:20 Calcium 8.8 mg/dL (8.5-10.1) 04/21/21 10:20 Total Bilirubin 0.6 mg/dL (0.2-1.0) 04/21/21 10:20 AST 23 U/L (15-37) 04/21/21 10:20 ALT 40 U/L (14-59) 04/21/21 10:20 Alkaline Phosphatase 112 U/L (46-116) 04/21/21 10:20 Lactate Dehydrogenase 168 U/L (81-234) 04/21/21 10:20 Total Protein 6.6 g/dL (6.4-8.2) 04/21/21 10:20 Albumin 2.9 g/dL (3.4-5.0) L 04/21/21 10:20 Ur Random Creatinine 10.29 mg/dL 04/21/21 10:00 U Random Total Protein < 6.0 mg/dL 04/21/21 10:00 U [place] Prot/Creat Ratio 04/21/21 10:00 COVID-19 Source Nasal/Nares 04/21/21 10:10 SARS-CoV-2 (PCR) Negative (Negative) 04/21/21 10:10 Patient ABO/Rh O Negative 04/21/21 10:20 Antibody Screen NEGATIVE 04/21/21 10:20 Vital Signs Reviewed: Yes Subjective Patient Reports: No new Complaints Results Hemoglobin/Hematocrit: Hgb 14.5 g/dL (11.2-15.7) 04/21/21 10:20 Hct 41.8 % (36.0-46.0) 04/21/21 10:20 Abnormal Lab Findings: Abnormal Labs 04/21/21 04/21/21 10:20 10:20 MPV 12.0 H BUN 6 L Creatinine 0.5 L Albumin 2.9 L
[2021-04-22] VITALS (10 sets, daily range): BP systolic 124–145; BP diastolic 66–89; PULSE 74–93; RESP 16–20; TEMP 36.4–36.9; O2SAT 97–99
--- NOTE | 2021-04-22 07:44 | PGE_ITS ---
Date of service: 04/22/21 Time of Service: 07:44 Informed Consent Informed Consent: Section Delivery (discussed there is some increased risk of delivery due to induction, verbalizes understanding.), Induction of Labor (discussed diagnosis of gestational hypertension and cervical ripening and pitocin induction, discussed risks, benefits and alternatives. Patient agrees to move forward at this time. EDWARD) and Risk,Benefits,Alternatives Discussed Pelvic Exam Comments: deferred. KH Contractions Monitor Mode: External Contraction Frequency(min): irregular Intensity: Mild Fetus A Monitor: External (US) Heart Rate Baseline: 130 Variability: Moderate (6-25 BPM) Categories: Category I Accelerations: 15 X 15 Decelerations: None Assessment and Plan Assessment and plan (1) Gestational hypertension, third trimester: Status: Acute Assessment and plan: Will continue with misoprostol today, plan to change to 50 mcg every 4 hours for up to 3 doses and then reassess. We discussed Cook catheter as adjunct therapy for cervical ripening. Plan to repeat VE once having regular noticeable contractions today. EDWARD Objective Abnormal lab results 04/21/21 04/21/21 Range/Units 10:20 10:20 MPV 12.0 H (8.0-11.0) fL BUN 6 L (7-18) mg/dL Creatinine 0.5 L (0.55-1.02) mg/dL Albumin 2.9 L (3.4-5.0) g/dL Temp Pulse Resp BP Pulse Ox 98.2 F 93 H 16 131/71 99 04/22/21 07:39 04/22/21 07:39 04/22/21 07:39 04/22/21 07:39 04/22/21 01:55 Laboratory Results WBC 10.58 10^3/uL (4.4-10.8) 04/21/21 10:20 RBC 4.61 10^6/uL (3.93-5.22) 04/21/21 10:20 Hgb 14.5 g/dL (11.2-15.7) 04/21/21 10:20 Hct 41.8 % (36.0-46.0) 04/21/21 10:20 MCV 90.7 fL (80-95) 04/21/21 10:20 MCH 31.5 pg (27.0-33.0) 04/21/21 10:20 MCHC 34.7 % (32.0-36.0) 04/21/21 10:20 RDW 12.6 % (11.7-14.6) 04/21/21 10:20 Plt Count 162 10^3/uL (130-400) 04/21/21 10:20 MPV 12.0 fL (8.0-11.0) H 04/21/21 10:20 Sodium 136 mmol/L (136-145) 04/21/21 10:20 Potassium 3.7 mmol/L (3.5-5.1) 04/21/21 10:20 Chloride 105 mmol/L (98-107) 04/21/21 10:20 Carbon Dioxide 21.2 mmol/L (21.0-32.0) 04/21/21 10:20 Anion Gap 9.8 mmol/L (3-11) 04/21/21 10:20 BUN 6 mg/dL (7-18) L 04/21/21 10:20 Creatinine 0.5 mg/dL (0.55-1.02) L 04/21/21 10:20 Estimated GFR/1.73 m2 >= 60.00 (mL/min/1.73m2) 04/21/21 10:20 Glucose 84 mg/dL (74-106) 04/21/21 10:20 Uric Acid 4.3 mg/dL (2.6-6.0) 04/21/21 10:20 Calcium 8.8 mg/dL (8.5-10.1) 04/21/21 10:20 Total Bilirubin 0.6 mg/dL (0.2-1.0) 04/21/21 10:20 AST 23 U/L (15-37) 04/21/21 10:20 ALT 40 U/L (14-59) 04/21/21 10:20 Alkaline Phosphatase 112 U/L (46-116) 04/21/21 10:20 Lactate Dehydrogenase 168 U/L (81-234) 04/21/21 10:20 Total Protein 6.6 g/dL (6.4-8.2) 04/21/21 10:20 Albumin 2.9 g/dL (3.4-5.0) L 04/21/21 10:20 Ur Random Creatinine 10.29 mg/dL 04/21/21 10:00 U Random Total Protein < 6.0 mg/dL 04/21/21 10:00 U [place] Prot/Creat Ratio 04/21/21 10:00 COVID-19 Source Nasal/Nares 04/21/21 10:10 SARS-CoV-2 (PCR) Negative (Negative) 04/21/21 10:10 Patient ABO/Rh O Negative 04/21/21 10:20 Antibody Screen NEGATIVE 04/21/21 10:20 Vital Signs Reviewed: Yes Subjective Patient Reports: No new Complaints Interval history since last seen: Was able to sleep for a few hours. Has had some cramping but no obvious contraction discomfort. No LOF or bleeding. Continues to feel well. KH Results Hemoglobin/Hematocrit: Hgb 14.5 g/dL (11.2-15.7) 04/21/21 10:20 Hct 41.8 % (36.0-46.0) 04/21/21 10:20 Abnormal Lab Findings: Abnormal Labs 04/21/21 04/21/21 10:20 10:20 MPV 12.0 H BUN 6 L Creatinine 0.5 L Albumin 2.9 L
[2021-04-22] MEDS: miSOPROStol 50 MCG TAB PO ×3 (08:05→16:55)
--- NOTE | 2021-04-22 13:04 | PGE_ITS ---
Date of service: 04/22/21 Time of Service: 13:04 Informed Consent Informed Consent: Section Delivery (discussed there is some increased risk of delivery due to induction, verbalizes understanding.), Induction of Labor (discussed diagnosis of gestational hypertension and cervical ripening and pitocin induction, discussed risks, benefits and alternatives. Patient agrees to move forward at this time. KH) and Risk,Benefits,Alternatives Discussed Pelvic Exam Comments: VE deferred Contractions Monitor Mode: External Contraction Frequency(min): 5-10 Contraction Duration(sec): 45-90 Intensity: Mild Fetus A Monitor: External (US) Heart Rate Baseline: 125 Variability: Moderate (6-25 BPM) Categories: Category I Accelerations: 15 X 15 Assessment Note: patient is out of bed on birthing ball, there are breaks in tracing for 20-30 seconds occasionally, no verifiable deceleration. KH Assessment and Plan Assessment and plan (1) Gestational hypertension, third trimester: Status: Acute Assessment and plan: 1. Will repeat misoprostol 50 mcg at approximately 1600 2. consider VE at that time for placement of cook catheter as well 3. expect NVD. Objective Temp Pulse Resp BP Pulse Ox 97.9 F 74 16 131/78 97 04/22/21 12:09 04/22/21 12:10 04/22/21 12:09 04/22/21 12:09 04/22/21 12:10 Laboratory Results WBC 10.58 10^3/uL (4.4-10.8) 04/21/21 10:20 RBC 4.61 10^6/uL (3.93-5.22) 04/21/21 10:20 Hgb 14.5 g/dL (11.2-15.7) 04/21/21 10:20 Hct 41.8 % (36.0-46.0) 04/21/21 10:20 MCV 90.7 fL (80-95) 04/21/21 10:20 MCH 31.5 pg (27.0-33.0) 04/21/21 10:20 MCHC 34.7 % (32.0-36.0) 04/21/21 10:20 RDW 12.6 % (11.7-14.6) 04/21/21 10:20 Plt Count 162 10^3/uL (130-400) 04/21/21 10:20 MPV 12.0 fL (8.0-11.0) H 04/21/21 10:20 Sodium 136 mmol/L (136-145) 04/21/21 10:20 Potassium 3.7 mmol/L (3.5-5.1) 04/21/21 10:20 Chloride 105 mmol/L (98-107) 04/21/21 10:20 Carbon Dioxide 21.2 mmol/L (21.0-32.0) 04/21/21 10:20 Anion Gap 9.8 mmol/L (3-11) 04/21/21 10:20 BUN 6 mg/dL (7-18) L 04/21/21 10:20 Creatinine 0.5 mg/dL (0.55-1.02) L 04/21/21 10:20 Estimated GFR/1.73 m2 >= 60.00 (mL/min/1.73m2) 04/21/21 10:20 Glucose 84 mg/dL (74-106) 04/21/21 10:20 Uric Acid 4.3 mg/dL (2.6-6.0) 04/21/21 10:20 Calcium 8.8 mg/dL (8.5-10.1) 04/21/21 10:20 Total Bilirubin 0.6 mg/dL (0.2-1.0) 04/21/21 10:20 AST 23 U/L (15-37) 04/21/21 10:20 ALT 40 U/L (14-59) 04/21/21 10:20 Alkaline Phosphatase 112 U/L (46-116) 04/21/21 10:20 Lactate Dehydrogenase 168 U/L (81-234) 04/21/21 10:20 Total Protein 6.6 g/dL (6.4-8.2) 04/21/21 10:20 Albumin 2.9 g/dL (3.4-5.0) L 04/21/21 10:20 Ur Random Creatinine 10.29 mg/dL 04/21/21 10:00 U Random Total Protein < 6.0 mg/dL 04/21/21 10:00 U [place] Prot/Creat Ratio 04/21/21 10:00 COVID-19 Source Nasal/Nares 04/21/21 10:10 SARS-CoV-2 (PCR) Negative (Negative) 04/21/21 10:10 Patient ABO/Rh O Negative 04/21/21 10:20 Antibody Screen NEGATIVE 04/21/21 10:20 Vital Signs Reviewed: Yes Objective Narrative Objective Narrative: continues to feel well, no FERNANDEZ, visual disturbance or epi gastric pain. BP's remain below 160/110. KH Subjective Patient Reports: No new Complaints Interval history since last seen: reports contractions are more today than yesterday but is able to tolerate them well. She is status post 2 oral doses of 50 mcg of misoprostol today. Results Hemoglobin/Hematocrit: Hgb 14.5 g/dL (11.2-15.7) 04/21/21 10:20 Hct 41.8 % (36.0-46.0) 04/21/21 10:20 Abnormal Lab Findings: Abnormal Labs 04/21/21 04/21/21 10:20 10:20 MPV 12.0 H BUN 6 L Creatinine 0.5 L Albumin 2.9 L
--- NOTE | 2021-04-22 16:11 | PGE_ITS ---
Date of service: 04/22/21 Time of Service: 16:11 Informed Consent Informed Consent: Section Delivery (discussed there is some increased risk of delivery due to induction, verbalizes understanding.), Induction of Labor (discussed diagnosis of gestational hypertension and cervical ripening and pitocin induction, discussed risks, benefits and alternatives. Patient agrees to move forward at this time. KH) and Risk,Benefits,Alternatives Discussed Pelvic Exam Dilation: 0.5 Effacement (%): 60 station: -2 Cervix Position: posterior Consistency: medium BISHOPS Score(Cervical Ripeness Score): 4 Vaginal Exam Presentation: Cephalic Contractions Monitor Mode: External Contraction Frequency(min): irregular Intensity: Mild Fetus A Heart Rate Baseline: 125 Variability: Moderate (6-25 BPM) Categories: Category I Accelerations: 15 X 15 Decelerations: None Assessment and Plan Assessment and plan (1) Gestational hypertension, third trimester: Status: Acute Assessment and plan: 1. Will do 3rd dose of misoprostol 50 mcg 30 minutes after Cook catheter which was placed by customs entry writer and both uterine and vaginal balloons were filled with 60 cc of NS. Patient tolerated well 2. Will reassess in 4 hours with plan to allow for rest or if more uncomfortable but not in active labor will begin pitocin. KH Objective Temp Pulse Resp BP Pulse Ox 98.4 F 79 16 133/79 97 04/22/21 13:56 04/22/21 13:56 04/22/21 12:09 04/22/21 13:56 04/22/21 12:10 Laboratory Results WBC 10.58 10^3/uL (4.4-10.8) 04/21/21 10:20 RBC 4.61 10^6/uL (3.93-5.22) 04/21/21 10:20 Hgb 14.5 g/dL (11.2-15.7) 04/21/21 10:20 Hct 41.8 % (36.0-46.0) 04/21/21 10:20 MCV 90.7 fL (80-95) 04/21/21 10:20 MCH 31.5 pg (27.0-33.0) 04/21/21 10:20 MCHC 34.7 % (32.0-36.0) 04/21/21 10:20 RDW 12.6 % (11.7-14.6) 04/21/21 10:20 Plt Count 162 10^3/uL (130-400) 04/21/21 10:20 MPV 12.0 fL (8.0-11.0) H 04/21/21 10:20 Sodium 136 mmol/L (136-145) 04/21/21 10:20 Potassium 3.7 mmol/L (3.5-5.1) 04/21/21 10:20 Chloride 105 mmol/L (98-107) 04/21/21 10:20 Carbon Dioxide 21.2 mmol/L (21.0-32.0) 04/21/21 10:20 Anion Gap 9.8 mmol/L (3-11) 04/21/21 10:20 BUN 6 mg/dL (7-18) L 04/21/21 10:20 Creatinine 0.5 mg/dL (0.55-1.02) L 04/21/21 10:20 Estimated GFR/1.73 m2 >= 60.00 (mL/min/1.73m2) 04/21/21 10:20 Glucose 84 mg/dL (74-106) 04/21/21 10:20 Uric Acid 4.3 mg/dL (2.6-6.0) 04/21/21 10:20 Calcium 8.8 mg/dL (8.5-10.1) 04/21/21 10:20 Total Bilirubin 0.6 mg/dL (0.2-1.0) 04/21/21 10:20 AST 23 U/L (15-37) 04/21/21 10:20 ALT 40 U/L (14-59) 04/21/21 10:20 Alkaline Phosphatase 112 U/L (46-116) 04/21/21 10:20 Lactate Dehydrogenase 168 U/L (81-234) 04/21/21 10:20 Total Protein 6.6 g/dL (6.4-8.2) 04/21/21 10:20 Albumin 2.9 g/dL (3.4-5.0) L 04/21/21 10:20 Ur Random Creatinine 10.29 mg/dL 04/21/21 10:00 U Random Total Protein < 6.0 mg/dL 04/21/21 10:00 U [place] Prot/Creat Ratio 04/21/21 10:00 COVID-19 Source Nasal/Nares 04/21/21 10:10 SARS-CoV-2 (PCR) Negative (Negative) 04/21/21 10:10 Patient ABO/Rh O Negative 04/21/21 10:20 Antibody Screen NEGATIVE 04/21/21 10:20 Vital Signs Reviewed: Yes Subjective Patient Reports: No new Complaints Interval history since last seen: has been able to nap for a while this afternoon but is prepared to move forward with next dose of misoprostol and agrees to Cook catheter placement. KH Interventions Induction Indication: Gestational Hypertension , Type of Induction: [place] Bulb (Cook catheter placed with 60cc fluid in uterine and vaginal bulbs tolerated well) , Results Hemoglobin/Hematocrit: Hgb 14.5 g/dL (11.2-15.7) 04/21/21 10:20 Hct 41.8 % (36.0-46.0) 04/21/21 10:20 Abnormal Lab Findings: Abnormal Labs 04/21/21 04/21/21 10:20 10:20 MPV 12.0 H BUN 6 L Creatinine 0.5 L Albumin 2.9 L
[2021-04-23] VITALS (9 sets, daily range): BP systolic 121–146; BP diastolic 67–86; PULSE 74–100; RESP 16–20; TEMP 36.7–37; O2SAT 97–100
--- NOTE | 2021-04-23 04:03 | W.PM.OBNL1 ---
Date of service: 04/23/21 Time of Service: 04:03 Informed Consent Informed Consent: Section Delivery (discussed there is some increased risk of delivery due to induction, verbalizes understanding.), Induction of Labor (discussed diagnosis of gestational hypertension and cervical ripening and pitocin induction, discussed risks, benefits and alternatives. Patient agrees to move forward at this time. EDWARD) and Risk,Benefits,Alternatives Discussed Pelvic Exam Comments: VE deferred, Cook catheter removed without difficulty. KH Contractions Monitor Mode: Palpation Contraction Frequency(min): rare Fetus A Monitor: Doppler Heart Rate Baseline: 130 Assessment and Plan Assessment and plan (1) Gestational hypertension, third trimester: Status: Acute Assessment and plan: Plan to allow for sleep until 0700 and then begin pitocin. Risks benefits and alternatives discussed. KH Objective Temp Pulse Resp BP Pulse Ox 98.6 F 75 20 142/80 H 100 04/23/21 03:15 04/23/21 03:15 04/23/21 03:15 04/23/21 03:15 04/23/21 03:15 Laboratory Results WBC 10.58 10^3/uL (4.4-10.8) 04/21/21 10:20 RBC 4.61 10^6/uL (3.93-5.22) 04/21/21 10:20 Hgb 14.5 g/dL (11.2-15.7) 04/21/21 10:20 Hct 41.8 % (36.0-46.0) 04/21/21 10:20 MCV 90.7 fL (80-95) 04/21/21 10:20 MCH 31.5 pg (27.0-33.0) 04/21/21 10:20 MCHC 34.7 % (32.0-36.0) 04/21/21 10:20 RDW 12.6 % (11.7-14.6) 04/21/21 10:20 Plt Count 162 10^3/uL (130-400) 04/21/21 10:20 MPV 12.0 fL (8.0-11.0) H 04/21/21 10:20 Sodium 136 mmol/L (136-145) 04/21/21 10:20 Potassium 3.7 mmol/L (3.5-5.1) 04/21/21 10:20 Chloride 105 mmol/L (98-107) 04/21/21 10:20 Carbon Dioxide 21.2 mmol/L (21.0-32.0) 04/21/21 10:20 Anion Gap 9.8 mmol/L (3-11) 04/21/21 10:20 BUN 6 mg/dL (7-18) L 04/21/21 10:20 Creatinine 0.5 mg/dL (0.55-1.02) L 04/21/21 10:20 Estimated GFR/1.73 m2 >= 60.00 (mL/min/1.73m2) 04/21/21 10:20 Glucose 84 mg/dL (74-106) 04/21/21 10:20 Uric Acid 4.3 mg/dL (2.6-6.0) 04/21/21 10:20 Calcium 8.8 mg/dL (8.5-10.1) 04/21/21 10:20 Total Bilirubin 0.6 mg/dL (0.2-1.0) 04/21/21 10:20 AST 23 U/L (15-37) 04/21/21 10:20 ALT 40 U/L (14-59) 04/21/21 10:20 Alkaline Phosphatase 112 U/L (46-116) 04/21/21 10:20 Lactate Dehydrogenase 168 U/L (81-234) 04/21/21 10:20 Total Protein 6.6 g/dL (6.4-8.2) 04/21/21 10:20 Albumin 2.9 g/dL (3.4-5.0) L 04/21/21 10:20 Ur Random Creatinine 10.29 mg/dL 04/21/21 10:00 U Random Total Protein < 6.0 mg/dL 04/21/21 10:00 U [place] Prot/Creat Ratio 04/21/21 10:00 COVID-19 Source Nasal/Nares 04/21/21 10:10 SARS-CoV-2 (PCR) Negative (Negative) 04/21/21 10:10 Patient ABO/Rh O Negative 04/21/21 10:20 Antibody Screen NEGATIVE 04/21/21 10:20 Vital Signs Reviewed: Yes Objective Narrative Objective Narrative: Continues to deny signs of pre-eclampsia. KH Subjective Patient Reports: No new Complaints Interval history since last seen: patient has been able to sleep over night without difficulty. KH Results Hemoglobin/Hematocrit: Hgb 14.5 g/dL (11.2-15.7) 04/21/21 10:20 Hct 41.8 % (36.0-46.0) 04/21/21 10:20 Abnormal Lab Findings: Abnormal Labs 04/21/21 04/21/21 10:20 10:20 MPV 12.0 H BUN 6 L Creatinine 0.5 L Albumin 2.9 L
--- NOTE | 2021-04-23 07:36 | PGE_ITS ---
Date of service: 04/23/21 Time of Service: 07:36 Informed Consent Informed Consent: Section Delivery (discussed there is some increased risk of delivery due to induction, verbalizes understanding.), Induction of Labor (discussed diagnosis of gestational hypertension and cervical ripening and pitocin induction, discussed risks, benefits and alternatives. Patient agrees to move forward at this time. EDWARD) and Risk,Benefits,Alternatives Discussed Pelvic Exam Dilation: 0.5 Effacement (%): 60 station: -2 Cervix Position: posterior Consistency: soft BISHOPS Score(Cervical Ripeness Score): 5 Vaginal Exam Presentation: Vertex Contractions Monitor Mode: External Contraction Frequency(min): rare Intensity: Mild Fetus A Monitor: Doppler Heart Rate Baseline: 130 Amniotic Membrane Status: Intact Assessment Note: Eva monitor being applied to allow for ambulation. Assessment and Plan Assessment and plan (1) Gestational hypertension, third trimester: Status: Acute Assessment and plan: 1. Will use pitocin to produce contractions today. 2. reassess once patient is having regular, painful contractions or as indicated 3. expect NVD. Objective Temp Pulse Resp BP Pulse Ox 98.4 F 100 H 20 133/75 97 04/23/21 06:34 04/23/21 06:34 04/23/21 06:34 04/23/21 06:34 04/23/21 06:34 Laboratory Results WBC 10.58 10^3/uL (4.4-10.8) 04/21/21 10:20 RBC 4.61 10^6/uL (3.93-5.22) 04/21/21 10:20 Hgb 14.5 g/dL (11.2-15.7) 04/21/21 10:20 Hct 41.8 % (36.0-46.0) 04/21/21 10:20 MCV 90.7 fL (80-95) 04/21/21 10:20 MCH 31.5 pg (27.0-33.0) 04/21/21 10:20 MCHC 34.7 % (32.0-36.0) 04/21/21 10:20 RDW 12.6 % (11.7-14.6) 04/21/21 10:20 Plt Count 162 10^3/uL (130-400) 04/21/21 10:20 MPV 12.0 fL (8.0-11.0) H 04/21/21 10:20 Sodium 136 mmol/L (136-145) 04/21/21 10:20 Potassium 3.7 mmol/L (3.5-5.1) 04/21/21 10:20 Chloride 105 mmol/L (98-107) 04/21/21 10:20 Carbon Dioxide 21.2 mmol/L (21.0-32.0) 04/21/21 10:20 Anion Gap 9.8 mmol/L (3-11) 04/21/21 10:20 BUN 6 mg/dL (7-18) L 04/21/21 10:20 Creatinine 0.5 mg/dL (0.55-1.02) L 04/21/21 10:20 Estimated GFR/1.73 m2 >= 60.00 (mL/min/1.73m2) 04/21/21 10:20 Glucose 84 mg/dL (74-106) 04/21/21 10:20 Uric Acid 4.3 mg/dL (2.6-6.0) 04/21/21 10:20 Calcium 8.8 mg/dL (8.5-10.1) 04/21/21 10:20 Total Bilirubin 0.6 mg/dL (0.2-1.0) 04/21/21 10:20 AST 23 U/L (15-37) 04/21/21 10:20 ALT 40 U/L (14-59) 04/21/21 10:20 Alkaline Phosphatase 112 U/L (46-116) 04/21/21 10:20 Lactate Dehydrogenase 168 U/L (81-234) 04/21/21 10:20 Total Protein 6.6 g/dL (6.4-8.2) 04/21/21 10:20 Albumin 2.9 g/dL (3.4-5.0) L 04/21/21 10:20 Ur Random Creatinine 10.29 mg/dL 04/21/21 10:00 U Random Total Protein < 6.0 mg/dL 04/21/21 10:00 U [place] Prot/Creat Ratio 04/21/21 10:00 COVID-19 Source Nasal/Nares 04/21/21 10:10 SARS-CoV-2 (PCR) Negative (Negative) 04/21/21 10:10 Patient ABO/Rh O Negative 04/21/21 10:20 Antibody Screen NEGATIVE 04/21/21 10:20 Vital Signs Reviewed: Yes Subjective Patient Reports: No new Complaints Interval history since last seen: Feels prepared to begin pitocin this morning as there has been minimal response to misoprostol and Cook catheter. Risks, benefits and alternatives discussed. Patient desires pitocin this morning. KH Interventions Induction Indication: Gestational Hypertension , Type of Induction: Pitocin rate at(mU/min): 2 will increase by 2 mu every 30 minutes until active labor. KH . , Results Hemoglobin/Hematocrit: Hgb 14.5 g/dL (11.2-15.7) 04/21/21 10:20 Hct 41.8 % (36.0-46.0) 04/21/21 10:20 Abnormal Lab Findings: Abnormal Labs 04/21/21 04/21/21 10:20 10:20 MPV 12.0 H BUN 6 L Creatinine 0.5 L Albumin 2.9 L
[2021-04-23] MEDS: Lactated Ringers 1,000 ML 200 ML IV ×3 (08:17→17:51)
[2021-04-23] MEDS: Normal Saline Flush 10 ML SYR IVP (08:17)
[2021-04-23] MEDS: Oxytocin/Normal Saline 30 UNIT/500 ML BAG 2 UNITS IV (08:56)
--- NOTE | 2021-04-23 10:41 | W.PM.OBNL1 ---
Date of service: 04/23/21 Time of Service: 10:41 Informed Consent Informed Consent: Section Delivery (discussed there is some increased risk of delivery due to induction, verbalizes understanding.), Induction of Labor (discussed diagnosis of gestational hypertension and cervical ripening and pitocin induction, discussed risks, benefits and alternatives. Patient agrees to move forward at this time. EDWARD) and Risk,Benefits,Alternatives Discussed Contractions Monitor Mode: External Contraction Frequency(min): irregular Contraction Duration(sec): 30-40 Intensity: Mild Fetus A Monitor: External (US) Heart Rate Baseline: 125 Variability: Moderate (6-25 BPM) Categories: Category I Accelerations: 15 X 15 Assessment Note: There was an episode of variable decel to 90's, pitocin was turned off and patient repositioned, deceleration recovered quickly, with consult with Dr. Patel pitocin was restarted 30 minutes later. Assessment and Plan Assessment and plan (1) Gestational hypertension, third trimester: Status: Acute Assessment and plan: continue present management. Objective Temp Pulse Resp BP Pulse Ox 98.1 F 85 16 136/79 97 04/23/21 07:45 04/23/21 07:45 04/23/21 07:45 04/23/21 07:45 04/23/21 06:34 Laboratory Results WBC 10.58 10^3/uL (4.4-10.8) 04/21/21 10:20 RBC 4.61 10^6/uL (3.93-5.22) 04/21/21 10:20 Hgb 14.5 g/dL (11.2-15.7) 04/21/21 10:20 Hct 41.8 % (36.0-46.0) 04/21/21 10:20 MCV 90.7 fL (80-95) 04/21/21 10:20 MCH 31.5 pg (27.0-33.0) 04/21/21 10:20 MCHC 34.7 % (32.0-36.0) 04/21/21 10:20 RDW 12.6 % (11.7-14.6) 04/21/21 10:20 Plt Count 162 10^3/uL (130-400) 04/21/21 10:20 MPV 12.0 fL (8.0-11.0) H 04/21/21 10:20 Sodium 136 mmol/L (136-145) 04/21/21 10:20 Potassium 3.7 mmol/L (3.5-5.1) 04/21/21 10:20 Chloride 105 mmol/L (98-107) 04/21/21 10:20 Carbon Dioxide 21.2 mmol/L (21.0-32.0) 04/21/21 10:20 Anion Gap 9.8 mmol/L (3-11) 04/21/21 10:20 BUN 6 mg/dL (7-18) L 04/21/21 10:20 Creatinine 0.5 mg/dL (0.55-1.02) L 04/21/21 10:20 Estimated GFR/1.73 m2 >= 60.00 (mL/min/1.73m2) 04/21/21 10:20 Glucose 84 mg/dL (74-106) 04/21/21 10:20 Uric Acid 4.3 mg/dL (2.6-6.0) 04/21/21 10:20 Calcium 8.8 mg/dL (8.5-10.1) 04/21/21 10:20 Total Bilirubin 0.6 mg/dL (0.2-1.0) 04/21/21 10:20 AST 23 U/L (15-37) 04/21/21 10:20 ALT 40 U/L (14-59) 04/21/21 10:20 Alkaline Phosphatase 112 U/L (46-116) 04/21/21 10:20 Lactate Dehydrogenase 168 U/L (81-234) 04/21/21 10:20 Total Protein 6.6 g/dL (6.4-8.2) 04/21/21 10:20 Albumin 2.9 g/dL (3.4-5.0) L 04/21/21 10:20 Ur Random Creatinine 10.29 mg/dL 04/21/21 10:00 U Random Total Protein < 6.0 mg/dL 04/21/21 10:00 U [place] Prot/Creat Ratio 04/21/21 10:00 COVID-19 Source Nasal/Nares 04/21/21 10:10 SARS-CoV-2 (PCR) Negative (Negative) 04/21/21 10:10 Patient ABO/Rh O Negative 04/21/21 10:20 Antibody Screen NEGATIVE 04/21/21 10:20 Subjective Patient Reports: No new Complaints Results Hemoglobin/Hematocrit: Hgb 14.5 g/dL (11.2-15.7) 04/21/21 10:20 Hct 41.8 % (36.0-46.0) 04/21/21 10:20 Abnormal Lab Findings: Abnormal Labs 04/21/21 04/21/21 10:20 10:20 MPV 12.0 H BUN 6 L Creatinine 0.5 L Albumin 2.9 L
--- NOTE | 2021-04-23 15:54 | PGE_ITS ---
Date of service: 04/23/21 Time of Service: 15:54 Informed Consent Informed Consent: Section Delivery (discussed there is some increased risk of delivery due to induction, verbalizes understanding.), Induction of Labor (discussed diagnosis of gestational hypertension and cervical ripening and pitocin induction, discussed risks, benefits and alternatives. Patient agrees to move forward at this time. EDWARD) and Risk,Benefits,Alternatives Discussed Pelvic Exam Comments: VE deferred. KH Contractions Monitor Mode: External Contraction Frequency(min): 4-5 Contraction Duration(sec): 60 Intensity: Mild Fetus A Monitor: External (US) Heart Rate Baseline: 125 Variability: Moderate (6-25 BPM) Categories: Category I Assessment and Plan Assessment and plan (1) Gestational hypertension, third trimester: Status: Acute Assessment and plan: 1. Patient and prefer to remain in hospital vs discharge to home 2. Plan to continue to increase pitocin to 20 mu and then if not in active labor will discontinue until am and then resume induction 3. Patient and prefer this plan of care. 4. Continue to expect NVD. KH Objective Temp Pulse Resp BP Pulse Ox 98.6 F 83 16 135/86 98 04/23/21 15:46 04/23/21 15:46 04/23/21 15:46 04/23/21 15:46 04/23/21 15:46 Laboratory Results WBC 10.58 10^3/uL (4.4-10.8) 04/21/21 10:20 RBC 4.61 10^6/uL (3.93-5.22) 04/21/21 10:20 Hgb 14.5 g/dL (11.2-15.7) 04/21/21 10:20 Hct 41.8 % (36.0-46.0) 04/21/21 10:20 MCV 90.7 fL (80-95) 04/21/21 10:20 MCH 31.5 pg (27.0-33.0) 04/21/21 10:20 MCHC 34.7 % (32.0-36.0) 04/21/21 10:20 RDW 12.6 % (11.7-14.6) 04/21/21 10:20 Plt Count 162 10^3/uL (130-400) 04/21/21 10:20 MPV 12.0 fL (8.0-11.0) H 04/21/21 10:20 Sodium 136 mmol/L (136-145) 04/21/21 10:20 Potassium 3.7 mmol/L (3.5-5.1) 04/21/21 10:20 Chloride 105 mmol/L (98-107) 04/21/21 10:20 Carbon Dioxide 21.2 mmol/L (21.0-32.0) 04/21/21 10:20 Anion Gap 9.8 mmol/L (3-11) 04/21/21 10:20 BUN 6 mg/dL (7-18) L 04/21/21 10:20 Creatinine 0.5 mg/dL (0.55-1.02) L 04/21/21 10:20 Estimated GFR/1.73 m2 >= 60.00 (mL/min/1.73m2) 04/21/21 10:20 Glucose 84 mg/dL (74-106) 04/21/21 10:20 Uric Acid 4.3 mg/dL (2.6-6.0) 04/21/21 10:20 Calcium 8.8 mg/dL (8.5-10.1) 04/21/21 10:20 Total Bilirubin 0.6 mg/dL (0.2-1.0) 04/21/21 10:20 AST 23 U/L (15-37) 04/21/21 10:20 ALT 40 U/L (14-59) 04/21/21 10:20 Alkaline Phosphatase 112 U/L (46-116) 04/21/21 10:20 Lactate Dehydrogenase 168 U/L (81-234) 04/21/21 10:20 Total Protein 6.6 g/dL (6.4-8.2) 04/21/21 10:20 Albumin 2.9 g/dL (3.4-5.0) L 04/21/21 10:20 Ur Random Creatinine 10.29 mg/dL 04/21/21 10:00 U Random Total Protein < 6.0 mg/dL 04/21/21 10:00 U [place] Prot/Creat Ratio 04/21/21 10:00 COVID-19 Source Nasal/Nares 04/21/21 10:10 SARS-CoV-2 (PCR) Negative (Negative) 04/21/21 10:10 Patient ABO/Rh O Negative 04/21/21 10:20 Antibody Screen NEGATIVE 04/21/21 10:20 Vital Signs Reviewed: Yes Objective Narrative Objective Narrative: Pitocin at 12 mu now and will continue to increase until active labor or 20 mu then if not in active labor will allow patient to rest and resume IOL in am. EDWARD Subjective Patient Reports: No new Complaints Interval history since last seen: Patient and have been given viable option of staying and taking rest after pitocin today then restarting with some agent tomorrow morning, vs. going home to return in a day or two for repeat IOL as long as she can rest at home. Patient and prefer to stay here where baby can be monitored off and on and they don't need to worry. [facility] had reviewed these options with the MD machine feeder floorperson who agrees to this plan as well. junior copywriter will hand patient off to Annemarie Harris CNM at this time and resume care in the morning 04/24/21.EDWARD Results Hemoglobin/Hematocrit: Hgb 14.5 g/dL (11.2-15.7) 04/21/21 10:20 Hct 41.8 % (36.0-46.0) 04/21/21 10:20 Abnormal Lab Findings: Abnormal Labs 04/21/21 04/21/21 10:20 10:20 MPV 12.0 H BUN 6 L Creatinine 0.5 L Albumin 2.9 L
[2021-04-24] VITALS (11 sets, daily range): BP systolic 132–138; BP diastolic 74–86; PULSE 75–98; RESP 16–20; TEMP 36.6–37; O2SAT 98
[2021-04-24] MEDS: Dinoprostone-CERVICAL 10 MG VSUPP VG (09:06)
--- NOTE | 2021-04-24 09:26 | W.PM.OBNL1 ---
Date of service: 04/24/21 Time of Service: 09:26 Informed Consent Informed Consent: Section Delivery (discussed there is some increased risk of delivery due to induction, verbalizes understanding.), Induction of Labor (discussed diagnosis of gestational hypertension and cervical ripening and pitocin induction, discussed risks, benefits and alternatives. Patient agrees to move forward at this time. EDWARD) and Risk,Benefits,Alternatives Discussed Pelvic Exam Dilation: 0.5 Effacement (%): 60 station: -2 Cervix Position: posterior Consistency: medium BISHOPS Score(Cervical Ripeness Score): 5 Vaginal Exam Presentation: Vertex Contractions Monitor Mode: External Contraction Frequency(min): irregular Intensity: Mild Fetus A Monitor: External (US) Heart Rate Baseline: 125 Variability: Moderate (6-25 BPM) Categories: Category I Assessment and Plan Assessment and plan (1) Gestational hypertension, third trimester: Status: Acute Assessment and plan: 1. cervidil placed 2. Consult with Dr. Wes baker, she agrees to plan of care 3. Re-assess in 12 hours or prn. EDWARD Objective Temp Pulse Resp BP Pulse Ox 97.9 F 98 H 16 136/86 98 04/24/21 03:25 04/24/21 07:11 04/24/21 03:25 04/24/21 07:11 04/23/21 15:46 Laboratory Results WBC 10.58 10^3/uL (4.4-10.8) 04/21/21 10:20 RBC 4.61 10^6/uL (3.93-5.22) 04/21/21 10:20 Hgb 14.5 g/dL (11.2-15.7) 04/21/21 10:20 Hct 41.8 % (36.0-46.0) 04/21/21 10:20 MCV 90.7 fL (80-95) 04/21/21 10:20 MCH 31.5 pg (27.0-33.0) 04/21/21 10:20 MCHC 34.7 % (32.0-36.0) 04/21/21 10:20 RDW 12.6 % (11.7-14.6) 04/21/21 10:20 Plt Count 162 10^3/uL (130-400) 04/21/21 10:20 MPV 12.0 fL (8.0-11.0) H 04/21/21 10:20 Sodium 136 mmol/L (136-145) 04/21/21 10:20 Potassium 3.7 mmol/L (3.5-5.1) 04/21/21 10:20 Chloride 105 mmol/L (98-107) 04/21/21 10:20 Carbon Dioxide 21.2 mmol/L (21.0-32.0) 04/21/21 10:20 Anion Gap 9.8 mmol/L (3-11) 04/21/21 10:20 BUN 6 mg/dL (7-18) L 04/21/21 10:20 Creatinine 0.5 mg/dL (0.55-1.02) L 04/21/21 10:20 Estimated GFR/1.73 m2 >= 60.00 (mL/min/1.73m2) 04/21/21 10:20 Glucose 84 mg/dL (74-106) 04/21/21 10:20 Uric Acid 4.3 mg/dL (2.6-6.0) 04/21/21 10:20 Calcium 8.8 mg/dL (8.5-10.1) 04/21/21 10:20 Total Bilirubin 0.6 mg/dL (0.2-1.0) 04/21/21 10:20 AST 23 U/L (15-37) 04/21/21 10:20 ALT 40 U/L (14-59) 04/21/21 10:20 Alkaline Phosphatase 112 U/L (46-116) 04/21/21 10:20 Lactate Dehydrogenase 168 U/L (81-234) 04/21/21 10:20 Total Protein 6.6 g/dL (6.4-8.2) 04/21/21 10:20 Albumin 2.9 g/dL (3.4-5.0) L 04/21/21 10:20 Ur Random Creatinine 10.29 mg/dL 04/21/21 10:00 U Random Total Protein < 6.0 mg/dL 04/21/21 10:00 U [place] Prot/Creat Ratio 04/21/21 10:00 COVID-19 Source Nasal/Nares 04/21/21 10:10 SARS-CoV-2 (PCR) Negative (Negative) 04/21/21 10:10 Patient ABO/Rh O Negative 04/21/21 10:20 Antibody Screen NEGATIVE 04/21/21 10:20 Vital Signs Reviewed: Yes Subjective Patient Reports: No new Complaints Interval history since last seen: Prepared to move forward with cervidil today. denies questions. continues to deny signs of pre-eclampsia. KH Results Hemoglobin/Hematocrit: Hgb 14.5 g/dL (11.2-15.7) 04/21/21 10:20 Hct 41.8 % (36.0-46.0) 04/21/21 10:20 Abnormal Lab Findings: Abnormal Labs 04/21/21 04/21/21 10:20 10:20 MPV 12.0 H BUN 6 L Creatinine 0.5 L Albumin 2.9 L
[2021-04-24] MEDS: Normal Saline Flush 10 ML SYR IVP ×2 (15:13→21:41)
[2021-04-24 17:15] LABS: HCT 39.3 % (36.0-46.0); HGB 13.9 g/dL (11.2-15.7); MCH 32.1 pg (27.0-33.0); MCHC 35.4 % (32.0-36.0); MCV 90.8 fL (80-95); Platelet Count 171 10^3/uL (130-400); RBC 4.33 10^6/uL (3.93-5.22); RDW 12.6 % (11.7-14.6); RDW-SD 41.1 fL; WBC 10.11 10^3/uL (4.4-10.8)
[2021-04-24 17:31] LABS: ALT 29 U/L (14-59); AST 16 U/L (15-37); Albumin 2.7 g/dL (3.4-5.0); Alkaline Phosphatase 109 U/L (46-116); Anion Gap 11.1 mmol/L (3-11); BUN 6 mg/dL (7-18); Bilirubin, Total 0.7 mg/dL (0.2-1.0); CO2 21.9 mmol/L (21.0-32.0); CREATININE 0.5 mg/dL (0.55-1.02); Calcium 8.4 mg/dL (8.5-10.1); Chloride 105 mmol/L (98-107); Glucose 108 mg/dL (74-106); Potassium 3.6 mmol/L (3.5-5.1); Sodium 138 mmol/L (136-145); Total Protein 6.2 g/dL (6.4-8.2)
--- NOTE | 2021-04-24 21:21 | W.PM.OBNL1 ---
Date of service: 04/24/21 Time of Service: 21:22 Informed Consent Informed Consent: Induction of Labor (cervical ripening options discussed, R&B reviewed, questions addressed.) and Risk,Benefits,Alternatives Discussed Pelvic Exam Dilation: 0.5 Effacement (%): 60 station: -2 Position: ROP Cervix Position: posterior Consistency: soft Contractions Monitor Mode: External Contraction Frequency(min): irregular Intensity: Mild Fetus A Monitor: External (US) Heart Rate Baseline: 130 Presentation: Cephalic Variability: Moderate (6-25 BPM) Categories: Category I Accelerations: 15 X 15 Decelerations: None Amniotic Membrane Status: Intact Assessment and Plan Assessment and plan (1) Encounter for induction of labor: Status: Acute Assessment and plan: A: 35 yo G1 @ 38 wks, HD#4 IOL for gestational HTN via cervical ripening Latent phase labor, vaginal millie Day 1 - miso 25 mcg q4hr, Day 2 - miso 50 mcg q4hr, Day 3 - pitocin x12 hrs, Day 4-cervidil x12 hrs Minimal cervical response thus far, springer score @ 4 Category 1 tracing BP stable, labs repeated today and nml P: Discused options for continued cervical ripening Diflucan 150 mg PO x1, Monistat 7 vaginal cream as lubricant for VE Will move forward with misoprostel 25 mcg tonight with continuous EFM (2) Gestational hypertension, third trimester: Status: Acute Objective Cervidil removed @ 2100 (12 hrs after insertion) Cvx ft/60% posterior, soft (minimal-no change) Clumpy vaginal mucous w/tacky mucosa noted during exam Category 1 tracing, intact membranes irregular and mild contractions not painful to pt BP stable at 130's over 80's Labs repeated and are WNL Subjective Interval history since last seen: Feels some mild pelvic pressure, occasional lower abd cramps. Results Hemoglobin/Hematocrit: Hgb 13.9 g/dL (11.2-15.7) 04/24/21 17:00 Hct 39.3 % (36.0-46.0) 04/24/21 17:00
[2021-04-24 21:25] LABS: COMMENT (LAB VIEW ONLY) 33.09 mg/dL; PROTEIN < 6.0 mg/dL
[2021-04-24] MEDS: Fluconazole 150 MG TAB PO (22:31)
--- NOTE | 2021-04-24 23:54 | W.PM.OBNL1 ---
Date of service: 04/24/21 Time of Service: 23:54 Assessment and Plan Assessment and plan (1) Encounter for induction of labor: Status: Acute Assessment and plan: A: Category 2 tracing, variables and spontaneous tachysystole FHT stabilized after intrauterine resuscitation efforts: maternal position changes, 02 per mask, IVF bolus contractions decreased immediately after terb 0.25 SC given @ 2208 marked improvement to category [address] Harvey on unit, reviewed tracing and spoke with pt Maternal temp 99.7 P: Will allow terbutaline to wear off Internal monitors remain in position Will assess response to further labor Pt drowsy, encourage rest/sleep Tylenol 1 gm PO given Subjective Patient Reports: No new Complaints Interval history since last seen: Sleeping, tired, comfortable
[2021-04-25] VITALS (7 sets, daily range): BP systolic 116–134; BP diastolic 62–79; PULSE 78–92; RESP 16; TEMP 36.6–36.8; O2SAT 98–99
--- NOTE | 2021-04-25 03:10 | NUR.NOTE ---
Nursing Note: Pt awakened from snoring sleep for VS check and Pre -E reassess. PO fluids encouraged. POC discussed. Pt to go back to sleep
--- NOTE | 2021-04-25 04:31 | W.PM.OBNL1 ---
Date of service: 04/25/21 Time of Service: 04:31 Informed Consent Informed Consent: Induction of Labor (cervical ripening options discussed, R&B reviewed, questions addressed.) and Risk,Benefits,Alternatives Discussed Contractions Monitor Mode: External Contraction Frequency(min): irregular, Intensity: Mild Fetus A Monitor: External (US) Heart Rate Baseline: 130 Presentation: Cephalic Variability: Moderate (6-25 BPM) Categories: Category I Accelerations: 15 X 15 Decelerations: None Amniotic Membrane Status: Intact Assessment and Plan Assessment and plan (1) Encounter for induction of labor: Status: Acute Assessment and plan: A: IOL for gest HTN via cervical ripening, in progress HD#5 BP Stable, pt comfortable Plan of care to resume misoprostel cvx ripening delayed d/t acuity on unit P: Begin misoprostel 25 mcg PO per guidelines now Category 1 tracing Objective Vital Signs Reviewed: Yes Subjective Interval history since last seen: Has been dozing/sleeping, when awake does feel mild cramping sensations Results Abnormal Lab Findings: Procedure Procedures: Cervical Ripening Cervical Ripening: Misoprostol
[2021-04-25] MEDS: miSOPROStol 50 MCG TAB 25 MCG PO ×2 (04:33→06:33)
--- NOTE | 2021-04-25 04:39 | NUR.NOTE ---
Nursing Note: Pt reports having slept well. Miso induction for GHPTN restarted. Pt denies headache visual changes or epigastric pain. 1-2+ bilateral patellar DTR's, negative clonus bilaterally.
[2021-04-25] MEDS: Normal Saline Flush 10 ML SYR IVP ×2 (04:46→08:30)
--- NOTE | 2021-04-25 06:35 | NUR.NOTE ---
Nursing Note: Pt was sleeping when this RN entered the room. Second dose of Miso given as ordered.
--- NOTE | 2021-04-25 10:51 | W.PM.OBNL1 ---
Date of service: 04/25/21 Time of Service: 10:51 Informed Consent Informed Consent: Risk,Benefits,Alternatives Discussed and Other (Not in labor, wellbeing verified, BP is normotensive, labs nml yesterday. Informed choice process for options at this point, pt has decided to discharge ot home, will return in 48 hrs for resumption of IOL process, or return sooner is sx of labor or increased BP appear.) Pelvic Exam BISHOPS Score(Cervical Ripeness Score): 4 Contractions Monitor Mode: External Contraction Frequency(min): irreg Intensity: Mild Fetus A Monitor: External (US) Heart Rate Baseline: 130 Variability: Moderate (6-25 BPM) Categories: Category I Accelerations: 15 X 15 Decelerations: None Amniotic Membrane Status: Intact Assessment and Plan Assessment and plan (1) Encounter for induction of labor: Status: Acute Assessment and plan: A: IOL for gest HTNwithout severe features, no progress or cervical ripening over 5 days Normotensive Category 1 tracing, NST reactive Pt in no discomfort or pain Primipara @ 39 wks P: After extensive informed consent process, pt chooses to go home In consult with Dr. Goodwin, discharge is confirmed Will return prn, or at 48 hrs for resumption of IOL efforts Subjective Patient Reports: No new Complaints Results Abnormal Lab Findings:
--- NOTE | 2021-04-25 10:58 | DSE_ITS ---
Date of service: 04/25/21 Time of Service: 10:58 DS: Diagnosis Discharge Diagnosis (1) Encounter for induction of labor: Status: Acute Discharge Plan Disposition Patient Disposition: HOME Condition: Good Discharge Details Reason For Visit: Gestational Hypertension in Third Trimester Admit Date/Time: 04/21/21 09:44 Admit Provider: Vielka Riojas Attending Provider: Vielka Riojas Primary Care Provider: Dina Maciel Hospital Course Hospital Course: Hospital Day #5 today, induction efforts using multiple cervical ripening techniques and medications have not resulted in onset of labor or any palpable cervical change, BP is stable, NST is reactive, no severe features or evidence of pre-eclampsia. Pt is discharged today undelivered and will return in 48 hours for resumption of induction process, warning signs and symptoms reviewed. Home Meds and New Rx's Prescriptions: No Action prenat.vits,shaheed,[id number] Tablet 1 tab PO DAILY RF: 0 Discharge Instructions Additional Instructions: Please return to the center in 48 hours for resumption of induction process. Call for any concerns, may return to center sooner if there is increased anxiety or symptoms while at home. Stand Alone Forms: Center Observation Activity:: Activity as Tolerated Equipment/Supplies:: No Equipment Needed Diet:: Normal Diet Discharge Orders Discharge Orders: Discharge Order (Routine); Ordered 04/25/21 Ordered By: Maria A Harris OB:DS Summary Contraception Discussed Contraception Discussed: No, Status at Discharge Functional status at discharge: independent ambulation Overall status at discharge: patient is back to baseline Mental Status: mental status grossly normal Speech and Movement: speech and movement normal and speech clear Mood: congruent mood and other (Pt verbalizes understanding of her options for care and treatment of gHTN) Affect: normal affect (pt is agreement with plan to go home for 48 hrs, then resume IOL efforts) Exam Physical Exam Vital signs: Temp Pulse Resp BP Pulse Ox 98.1 F 92 H 16 134/79 98 04/25/21 10:15 04/25/21 10:15 04/25/21 10:15 04/25/21 10:15 04/25/21 10:15 Vital Signs Reviewed: Yes Constitutional Constitutional: no acute distress HEENT Exam HEENT Exam: Normal Neck Exam Neck Exam: Normal Respiratory Exam Respiratory Exam: Normal Cardiovascular Exam Cardiovascular Exam: Normal Abdominal Exam Abdomen: Other (Gravid, nontender) Rectal Exam Rectal Exam: Normal Exam Comments: vaginal millie, treated with oral diflucan and pt given Monistat 7 to use nightly Extremities Exam Extremity Exam: Normal Back/Spine/Pelvis Exam Back Exam: Normal Skin Exam Skin Exam: Normal Neurological Exam Neurological Exam: Normal Psychiatric Exam Psychiatric Exam: Normal PFSH All Active Problems (Updated 04/24/21 @ 21:41 by Maria A Harris) Encounter for induction of labor (Acute) Gestational hypertension, third trimester (Acute) Closed trimalleolar fracture of left ankle (Acute) ORIF: 04/08/18 Location: [place], [place] Family history of genetic disorder (Acute) Change in skin mole (Acute) Rh negative state in antepartum period (Acute) Medical History (Updated 04/24/21 @ 21:41 by Maria A Harris) Back pain affecting in second trimester Surgical History (Updated 04/24/21 @ 21:41 by Maria A Harris) History of ankle surgery Family History Maternal Cousin Potter syndrome x 2 pregnancies - Mat cousins children x 2 Other abnormal clinical finding Maternal cousin with a disorder of muscle fibers, unable to walk or speak Maternal Cousin Muscular dystrophy Mother Thyroid disease Sister Thyroid disease Sister Thyroid disease graves Maternal Aunt Bipolar 1 disorder Sister Depression Social History Smoking/Tobacco Use Status: Former Tobacco Use Smoking risk assessment performed?: Yes Alcohol Intake: former Drug use: Never Substance use type: does not use History History 2 Para 0 Hx # Term Pregnancies 0 Multiple births 0 Hx # Pregnancies 0 Ectopic pregnancies 0 AB induced 1 Hx Number of Living Children 0 AB spontaneous 0 DS: Data Vitals/I&O Vitals and I&O: Vital Signs Temperature 98.1 F 04/25/21 10:15 Pulse 92 H 04/25/21 10:15 Pulse Rhythm Regular 04/25/21 07:58 Respiratory Rate 16 04/25/21 10:15 Respiratory Depth Normal 04/24/21 11:28 Blood Pressure 134/79 04/25/21 10:15 Blood Pressure Mean 97 04/25/21 10:15 Pulse Oximetry 98 04/25/21 10:15 Pain Level 0 01/19/22 04:46 Comment 04/25/21 03:02 Intake & Output 04/24/21 04/24/21 04/25/21 11:59 23:59 11:59 Intake Total 1000 / 1000 Output Total 1200 / 1200 Balance -200 / -200 Intake: Oral 1000 / 1000 Output: Urine 1200 / 1200 Other: Urine Color Yellow Urine Appearance Clear Urine Odor None Voiding Methods Toilet Data Completed and Pending Labs on day of discharge: Labs from last 24 hours 04/24/21 04/24/21 04/24/21 17:00 17:00 17:00 WBC 10.11 RBC 4.33 Hgb 13.9 Hct 39.3 MCV 90.8 MCH 32.1 MCHC 35.4 RDW 12.6 Plt Count 171 MPV 12.0 H Sodium Potassium Chloride Carbon Dioxide Anion Gap BUN Creatinine Estimated GFR/1.73 m2 Glucose Calcium Total Bilirubin AST ALT Alkaline Phosphatase Total Protein Albumin Ur Random Creatinine 33.09 U Random Total Protein < 6.0 U [place] Prot/Creat Ratio Patient ABO/Rh O Negative Antibody Screen NEGATIVE 04/24/21 17:00 WBC RBC Hgb Hct MCV MCH MCHC RDW Plt Count MPV Sodium 138 Potassium 3.6 Chloride 105 Carbon Dioxide 21.9 Anion Gap 11.1 H BUN 6 L Creatinine 0.5 L Estimated GFR/1.73 m2 >= 60.00 Glucose 108 H Calcium 8.4 L Total Bilirubin 0.7 AST 16 ALT 29 Alkaline Phosphatase 109 Total Protein 6.2 L Albumin 2.7 L Ur Random Creatinine U Random Total Protein U [place] Prot/Creat Ratio Patient ABO/Rh Antibody Screen
== END 2021-04-25 11:10 | disposition home or self-care (01) | DRG 833 ==
LOC: OBS 10:13 → BCD 04-23 15:14
PROVIDERS: Advanced Practice Midwife; Admitting Provider Advanced Practice Midwife; PCP Nurse Practitioner Family; Visit Provider Advanced Practice Midwife
DX: O13.3 Gestational [pregnancy-induced] hypertension without significant proteinuria, third trimester (principal); O61.0 Failed medical induction of labor; Z3A.38 38 weeks gestation of pregnancy
CPT/HCPCS: 36415; 80053; 85027; 86850; 86900; 86901; 87635; 59025; 82565; 83615; 84156; 84550; J3490

== ENCOUNTER 2021-04-27 17:21 | Outpatient (CLI) | payer BC, SELFPAY ==
[2021-04-27 17:41] VITALS: BP 149/82; PULSE 80; TEMP 36.6
[2021-04-27 17:50] VITALS: BP 153/90; PULSE 82
[2021-04-27 18:06] VITALS: BP 149/82; PULSE 80
[2021-04-27 18:12] LABS: HCT 41.6 % (36.0-46.0); HGB 14.7 g/dL (11.2-15.7); MCH 31.3 pg (27.0-33.0); MCHC 35.3 % (32.0-36.0); MCV 88.7 fL (80-95); MPV 11.8 fL (8.0-11.0); Platelet Count 185 10^3/uL (130-400); RBC 4.69 10^6/uL (3.93-5.22); RDW 12.7 % (11.7-14.6); RDW-SD 40.8 fL; WBC 11.61 10^3/uL (4.4-10.8)
[2021-04-27 18:23] LABS: ALT 27 U/L (14-59); AST 18 U/L (15-37); Albumin 3.1 g/dL (3.4-5.0); Alkaline Phosphatase 122 U/L (46-116); Anion Gap 10.6 mmol/L (3-11); BUN 6 mg/dL (7-18); Bilirubin, Total 0.5 mg/dL (0.2-1.0); CO2 21.4 mmol/L (21.0-32.0); CREATININE 0.5 mg/dL (0.55-1.02); Calcium 8.6 mg/dL (8.5-10.1); Chloride 100 mmol/L (98-107); Glucose 81 mg/dL (74-106); Potassium 3.4 mmol/L (3.5-5.1); Sodium 132 mmol/L (136-145); Total Protein 6.7 g/dL (6.4-8.2)
--- NOTE | 2021-04-27 18:32 | W.OBNST ---
Date of service: 04/27/21 Time of Service: 18:33 NST Evaluation Reason for NST Reasons for Nonstress Test: GESTATIONAL HYPERTENSION Gestational Age Gestational Age in Weeks and Days: 39 Weeks and 2Days Test and Monitor Explained Test/Monitor Explained: Test Explained, Monitor Explained and Patient Verbalized Understanding Vital Signs Blood Pressure: 149/82 Pulse: 80 Temperature: 97.9 F NST Information Date on Monitor: 04/27/21 Time on Monitor: 17:47 Date off Monitor: 04/27/21 Time off Monitor: 18:22 Total Time on Monitor: 35 NST Interventions: None NST Evaluation Patient States Movement: Present FHR Baseline: 130 Variability: Moderate 6-25 bpm Accelerations: 15x15 Decelerations: None NST Results: Reactive Note NST Note Note: 39+2 wks, unable to resume IOL for gest HTN due to unit acuity today NST reactive, BP stable at 149/82, labs repeated Pt discharged to home, will await available bed in the center tomorrow NST Reviewed and Verified by: Maria A Harris
[2021-04-27 18:36] VITALS: BP 149/82; PULSE 80; TEMP 36.6
[2021-04-27 20:12] LABS: PROTEIN < 6.0 mg/dL
[2021-04-27 20:13] LABS: COMMENT (LAB VIEW ONLY) 12.65 mg/dL
== END 2021-04-27 18:29 | disposition home or self-care (01) ==
LOC: BCD 17:25 → OBS 17:41
PROVIDERS: PCP Nurse Practitioner Family; Visit Provider Advanced Practice Midwife
DX: O13.3 Gestational [pregnancy-induced] hypertension without significant proteinuria, third trimester (principal); Z3A.39 39 weeks gestation of pregnancy
CPT/HCPCS: 59025; 36415; 80053; 85027; 86850; 86900; 86901; 82565; 84156; 84550

== ENCOUNTER 2021-04-29 12:42 | Inpatient (IN) | payer BC, SELFPAY ==
--- NOTE | 2021-04-29 13:15 | W.PM.OBHPL1 ---
Date of service: 04/29/21 Time of Service: 13:15 Assessment and Plan Assessment and plan (1) Encounter for induction of labor: Status: Acute Assessment and plan: A: 35 yo @ 39+4 wks IOL attempt x4 days last week unsuccesssful @ 38 wks Readmission for IOL via cervical ripening for gHTN Mild range pressures, no severe features, labs nml GBS neg, Rh neg, Gallardo score is 3 Low risk for SD, moderate risk for PPH due IOL process Category 1 tracing P: Admit to [facility], COVID swab, labs Initiate cervical ripening with cervidil Dr. Mary consulting (2) Gestational hypertension, third trimester: Status: Acute OB-HPI Labor/Delivery History of Present Illness Reason for Visit: Gestational hypertension Chief Complaint: Scheduled Induction of Labor Indication for Induction: Gestational Hypertension. DANIEL Calculator Estimated Delivery Date Method Current WG Current Estimate 05/02/21 LMP (Certain) 39w 4d Other Estimates 04/29/21 Ultrasound #1 40w 0d History of Present Expected Delivery Route/Plan - CNM FOB/boyfriend - Bryan Angela (first child) BB- [place], yes to circ GBS negative Hopes to use tub, nitrous, have unmedicated Specific Issues/Plan 1. Desires all genetic screening, drawn 10/11/20 1a. CF & SMA negative, [place] low prob x3, male fetus 2. Rh neg, discuss with Anne Esquivel @ 28 wks- received. 3. Posterior placental tip is 2 cm from internal os at 18 wk sono 3a. Scan repeated at 28 wks 02/05: placental tip 4 cm from os, not low lying. EVONNE 19, 56th percentile growth 4. Back pain - PT visits and does stretches at home - wears a abdominal support. 5. Lower abominal discomfort - relieved by abdominal support 6. Sierra and Bryan received covid vaccine. Sierra will be receiving the booster. Sierra recieved TDAP 6a. Covid exposure - quarantine and testing. 7. History of anxiety - reviewed symptoms of post mood disorders Assessment: History Reviewed & Current Informed Consent Informed Consent: Induction of Labor (after options reviewed, plan is to move forward with placement of cervidil x 12 hrs.) and Risk,Benefits,Alternatives Discussed Review of Systems All systems reviewed & are unremarkable except as noted in HPI and below Constitutional Constitutional: Reports system reviewed and no additional complaints, except as documented ENT Ears, Nose, Mouth, and Throat: Reports system reviewed and no additional complaints, except as documented Cardiovascular Cardiovascular: Reports system reviewed and no additional complaints, except as documented Respiratory Respiratory: Reports system reviewed and no additional complaints, except as documented Gastrointestinal Gastrointestinal: Reports system reviewed and no additional complaints, except as documented Genitourinary Genitourinary: Reports system reviewed and no additional complaints, except as documented Musculoskeletal Musculoskeletal: Reports system reviewed and no additional complaints, except as documented Integumentary/Breasts Skin/Breast: Reports system reviewed and no additional complaints, except as documented Neurologic Neurologic: Reports system reviewed and no additional complaints, except as documented Psychiatric Psychiatric: Reports system reviewed and no additional complaints, except as documented and Reports anxiety PFSH All Active Problems (Updated 04/24/21 @ 21:41 by Maria A Harris) Encounter for induction of labor (Acute) Gestational hypertension, third trimester (Acute) Closed trimalleolar fracture of left ankle (Acute) ORIF: 04/08/18 Location: [place], [place] Family history of genetic disorder (Acute) Change in skin mole (Acute) Rh negative state in antepartum period (Acute) Medical History (Updated 04/24/21 @ 21:41 by Maria A Harris) Alcohol abuse Back pain affecting in second trimester Surgical History (Updated 04/24/21 @ 21:41 by Maria A Harris) History of ankle surgery Family History Maternal Cousin Potter syndrome x 2 pregnancies - Mat cousins children x 2 Other abnormal clinical finding Maternal cousin with a disorder of muscle fibers, unable to walk or speak Maternal Cousin Muscular dystrophy Mother Thyroid disease Sister Thyroid disease Sister Thyroid disease graves Maternal Aunt Bipolar 1 disorder Sister Depression Social History Smoking/Tobacco Use Status: Former Tobacco Use Smoking risk assessment performed?: Yes Alcohol Intake: former Drug use: Never Substance use type: does not use Do you feel safe at home: Yes Do you feel safe in your relationship?: Yes History History 2 Para 0 Hx # Term Pregnancies 0 Multiple births 0 Hx # Pregnancies 0 Ectopic pregnancies 0 AB induced 1 Hx Number of Living Children 0 AB spontaneous 0 Meds Allergies and Home Medications Allergies Allergy/AdvReac Type Severity Reaction Status Date / Time No Known Allergies Allergy Verified 04/21/21 10:14 Home Medications Medication Instructions Recorded Confirmed Type prenat.vits,shaheed,[id number] 1 tab PO DAILY 08/23/20 04/21/21 History Exam Physical Exam Vital signs: 133/91, pulse 112 Vital Signs Reviewed: Yes Constitutional Constitutional: no acute distress Detailed Labor and Delivery Exam Dilation: 0.5 Effacement (%): 70 station: -3 Cervix position: posterior Consistency: medium GALLARDO Score(Cervical Ripeness Score): 3 Amniotic Membrane Status: Intact Contraction Frequency(min): irreg, rare Contraction Intensity: Mild Fetus A Heart Rate Baseline: 130 Monitor Accelerations: 15 X 15 Monitor Decelerations: None Variability: Moderate (6-25 BPM) Categories: Category I Est. Weight: 7 lb 7.931 oz Est. Weight: 3400 gms HEENT Exam HEENT Exam: Normal Neck Exam Neck Exam: Normal Chest/Brest/Axilla Exam Chest Exam: Normal Breast Exam Breast Exam: Not Done Respiratory Exam Respiratory Exam: Normal Cardiovascular Exam Cardiovascular Exam: Normal Abdominal Exam Abdominal Exam: Normal (soft, nontender) Rectal Exam Rectal Exam: Normal Exam Exam: Normal Extremities Exam Extremities Exam: Normal Back/Spine/Pelvis Exam Back Exam: Normal Pelvis Adequate: Yes Skin Exam Skin Exam: Normal Neurological Exam Neurological Exam: Normal Psychiatric Exam Psychiatric Exam: Normal Results Results Group Beta Strep: Negative Blood Type: O- Rubella Status: Immune Varicella Immunity: Immune Risk Assessment Risk for Shoulder Dystocia Historical/Initial OB: NEGATIVE FOR: Pelvic Abnormality, Pre- BMI>30, Previous Shoulder Dystocia or Previous Macrosomia 40 Weeks: NEGATIVE FOR: EFW> 4500 gms, Maternal Weight Gain >40lb or Post Dates Increased Risk?: No Delivery Plan @ 36wks: NVD anticipated. EDWARD Delivery Plan @ 40 wks: IOL at 38w 3d due to gestational hypertension without significant proteinuria Re-admitted at 39+4 wks for IOL for gHTN, jk Risk for Pre-Eclampsia Date Initiated/Initials: not indicated. jk Yes, if one or more: NEGATIVE FOR: Hx Pre-E/Gest HTN, Chronic HTN, Multiple Gestation, Pre-gestational DM, Renal Disease, Systemic Lupus or APA Syndrome Yes, if 2 or more: POSITIVE FOR: Nulliparity; NEGATIVE FOR: Age>= 35 yrs, >10yr btwn pregnancies, BMI>30, ethinicty, Mother/Sister w/ Pre-E or Previous IUGR Risk for Post- Hemorrhage Initial: NEGATIVE FOR: Multiple Gestation, Previous PPH, Known Clotting Deficiency, Grand Multiparity or Anticoagulation Counseled re: Active Management: Yes Date/Initials: 04/21/21 Risks Reviewed Risks Reviewed Upon Admission: Yes
[2021-04-29 13:43] VITALS: BP 133/91; PULSE 112; RESP 20; TEMP 36.8
[2021-04-29 13:46] VITALS: BP 133/91; PULSE 112
[2021-04-29 14:08] LABS: HCT 43.3 % (36.0-46.0); HGB 15.4 g/dL (11.2-15.7); MCHC 35.6 % (32.0-36.0); Platelet Count 199 10^3/uL (130-400); RBC 4.81 10^6/uL (3.93-5.22); RDW 12.4 % (11.7-14.6); RDW-SD 40.6 fL; WBC 14.15 10^3/uL (4.4-10.8)
[2021-04-29 14:19] LABS: ALT 38 U/L (14-59); AST 24 U/L (15-37); Albumin 3.1 g/dL (3.4-5.0); Alkaline Phosphatase 125 U/L (46-116); Anion Gap 10.2 mmol/L (3-11); BUN 7 mg/dL (7-18); Bilirubin, Total 0.8 mg/dL (0.2-1.0); CO2 23.8 mmol/L (21.0-32.0); CREATININE 0.7 mg/dL (0.55-1.02); Calcium 8.7 mg/dL (8.5-10.1); Chloride 102 mmol/L (98-107); Glucose 105 mg/dL (74-106); Sodium 136 mmol/L (136-145); Total Protein 6.9 g/dL (6.4-8.2)
[2021-04-29] MEDS: Dinoprostone-CERVICAL 10 MG VSUPP VG (14:25)
[2021-04-29 14:57] LABS: Source Nasal/Nares
[2021-04-29 15:17] VITALS: BP 128/80; PULSE 89
[2021-04-29 15:39] LABS: COVID-19 PCR Negative (Negative)
--- NOTE | 2021-04-29 20:07 | NUR.NOTE ---
Nursing Note: Pt sleeping comfortably at this time.
[2021-04-29 20:25] VITALS: BP 138/86; PULSE 85
[2021-04-29 20:27] VITALS: TEMP 36.6
[2021-04-30] VITALS (14 sets, daily range): BP systolic 108–135; BP diastolic 71–94; PULSE 75–111; RESP 16–20; TEMP 36.6–36.9
--- NOTE | 2021-04-30 02:37 | W.PM.OBNL1 ---
Date of service: 04/30/21 Time of Service: 02:37 Informed Consent Informed Consent: Induction of Labor (Cervidil is out, will move to vaginal micoprostel) and Risk,Benefits,Alternatives Discussed Pelvic Exam Dilation: 1 Effacement (%): 80 station: -3 Position: LOP Cervix Position: mid Consistency: medium Contractions Monitor Mode: External Contraction Frequency(min): irregular Intensity: Mild Fetus A Monitor: External (US) Heart Rate Baseline: 125 Variability: Moderate (6-25 BPM) Categories: Category I Accelerations: 15 X 15 Decelerations: None Amniotic Membrane Status: Intact Assessment and Plan Assessment and plan (1) Encounter for induction of labor: Status: Acute Assessment and plan: A: Cervidil removed @ 12 hrs Will switch to vaginal misoprostel placement q 4 hrs Minor cervical change palpable to 1/80% P: Begin misoprostel guidelines @ 0300 Cont to monitor for response (2) Gestational hypertension, third trimester: Status: Acute Assessment and plan: A: BP has been stable Labs nml P: Gestational HTN in a primipara Mild range pressures, no severe features Cont to monitor Objective Abnormal lab results 04/29/21 04/29/21 Range/Units 14:00 14:00 WBC 14.15 H (4.4-10.8) 10^3/uL MPV 12.0 H (8.0-11.0) fL Alkaline Phosphatase 125 H (46-116) U/L Albumin 3.1 L (3.4-5.0) g/dL Temp Pulse Resp BP 97.9 F 80 16 129/77 04/30/21 00:44 04/30/21 00:40 04/30/21 00:44 04/30/21 00:40 Laboratory Results WBC 14.15 10^3/uL (4.4-10.8) H 04/29/21 14:00 RBC 4.81 10^6/uL (3.93-5.22) 04/29/21 14:00 Hgb 15.4 g/dL (11.2-15.7) 04/29/21 14:00 Hct 43.3 % (36.0-46.0) 04/29/21 14:00 MCV 90.0 fL (80-95) 04/29/21 14:00 MCH 32.0 pg (27.0-33.0) 04/29/21 14:00 MCHC 35.6 % (32.0-36.0) 04/29/21 14:00 RDW 12.4 % (11.7-14.6) 04/29/21 14:00 Plt Count 199 10^3/uL (130-400) 04/29/21 14:00 MPV 12.0 fL (8.0-11.0) H 04/29/21 14:00 Sodium 136 mmol/L (136-145) 04/29/21 14:00 Potassium 4.0 mmol/L (3.5-5.1) 04/29/21 14:00 Chloride 102 mmol/L (98-107) 04/29/21 14:00 Carbon Dioxide 23.8 mmol/L (21.0-32.0) 04/29/21 14:00 Anion Gap 10.2 mmol/L (3-11) 04/29/21 14:00 BUN 7 mg/dL (7-18) 04/29/21 14:00 Creatinine 0.7 mg/dL (0.55-1.02) 04/29/21 14:00 Estimated GFR/1.73 m2 >= 60.00 (mL/min/1.73m2) 04/29/21 14:00 Glucose 105 mg/dL (74-106) 04/29/21 14:00 Calcium 8.7 mg/dL (8.5-10.1) 04/29/21 14:00 Total Bilirubin 0.8 mg/dL (0.2-1.0) 04/29/21 14:00 AST 24 U/L (15-37) 04/29/21 14:00 ALT 38 U/L (14-59) 04/29/21 14:00 Alkaline Phosphatase 125 U/L (46-116) H 04/29/21 14:00 Total Protein 6.9 g/dL (6.4-8.2) 04/29/21 14:00 Albumin 3.1 g/dL (3.4-5.0) L 04/29/21 14:00 COVID-19 Source Nasal/Nares 04/29/21 14:57 SARS-CoV-2 (PCR) Negative (Negative) 04/29/21 14:57 Patient ABO/Rh Cancelled 04/29/21 13:40 Subjective Interval history since last seen: Has been feeling lower abd cramps for awhile Procedure Procedures: Cervical Ripening Cervical Ripening: Cervidil and Misoprostol
[2021-04-30] MEDS: miSOPROStol 25 MCG TAB 50 MCG VG (03:02)
[2021-04-30] MEDS: miSOPROStol 50 MCG TAB PO (07:53)
--- NOTE | 2021-04-30 08:33 | W.PM.OBNL1 ---
Date of service: 04/30/21 Time of Service: 08:34 Informed Consent Informed Consent: Induction of Labor (COntinue with misprostel guidelines) and Risk,Benefits,Alternatives Discussed Pelvic Exam Dilation: 1 Effacement (%): 80 station: -3 Position: LOP Cervix Position: mid Consistency: medium Contractions Monitor Mode: External Contraction Frequency(min): irregular Intensity: Mild Fetus A Monitor: External (US) Heart Rate Baseline: 130 Variability: Moderate (6-25 BPM) Categories: Category I Accelerations: 15 X 15 Decelerations: None Amniotic Membrane Status: Intact Assessment and Plan Assessment and plan (1) Encounter for induction of labor: Status: Acute Assessment and plan: A: primipara with gHTN, stable IOL via cervical ripening P: 2nd misoprostel dose given slight cervical progress continue with guidelines may attempt pizarro insertion later today Objective Vital Signs Reviewed: Yes Objective Narrative Objective Narrative: Pt slept after vaginal miso was inserted at 0300 Category 1 tracing continues Has showered, had breakfast 0800 miso dose given orally Attempted to insert pizarro for balloon but not successful Pt declines speculum for visual insertion at this time Small amt bloody vaginal mucous returned after insertion efforts Subjective Interval history since last seen: Had become quite uncomfortable last night, does feel a bit better this morning but remains more crampy then yesterday at admission. Results Abnormal Lab Findings: Procedure Procedures: Cervical Ripening Cervical Ripening: Misoprostol
[2021-04-30] MEDS: miSOPROStol 50 MCG TAB (12:03)
--- NOTE | 2021-04-30 15:43 | PGE_ITS ---
Date of service: 04/30/21 Time of Service: 15:44 Contractions Monitor Mode: External Contraction Frequency(min): irregular, q 2-5 Contraction Duration(sec): 60 Intensity: Mild Fetus A Monitor: External (US) Heart Rate Baseline: 135 Variability: Moderate (6-25 BPM) Categories: Category I Accelerations: 15 X 15 Decelerations: None Amniotic Membrane Status: Ruptured Rupture Method: Spontaneous Amniotic Fluid: Clear and [place] Tinged Amount: small Date of Membrane Rupture: 04/30/21 Time of Membrane Rupture: 13:05 Assessment and Plan Assessment and plan (1) Encounter for induction of labor: Status: Acute Assessment and plan: A: SROM of clear and pink tinged fluids Confirmed with ferns present on slide Latent phase labor Category 1 tracing P: Hold further misoprostel dosing Observe for labor progression Dr. Goodwin consulting Objective Vital Signs Reviewed: Yes Subjective Interval history since last seen: Small gushes of fluid that is clear or pink tinged started at 1305
--- NOTE | 2021-04-30 16:17 | W.PM.OBNL1 ---
Date of service: 04/30/21 Time of Service: 16:17 Informed Consent Informed Consent: Induction of Labor (Continue with misprostel guidelines) and Risk,Benefits,Alternatives Discussed Pelvic Exam Comments: SVE deferred due to ruptured membranes and little clinical change in pt presentation Assessment and Plan Assessment and plan (1) Encounter for induction of labor: Status: Acute Assessment and plan: A: IOL for gHTN, stable SROM clear without increase in labor pattern Latent phase labor, GBS neg Cumulative misoprostel intake thus far @ 150 mcg Category 1 tracing P: After huddle with RN, CNM & MD, will continue cervical ripening agent for the afternoon Misoprostel 25 mcg PO q 2 hrs, IV access, continuous EFM Consider pitocin infusion (low dose) tonight Dr. Goodwin consulting Objective Vital Signs Reviewed: Yes Subjective Interval history since last seen: Can feel irregular contractions which feel tight but not painful Procedure Procedures: Cervical Ripening Cervical Ripening: Misoprostol
[2021-04-30] MEDS: miSOPROStol 25 MCG TAB (16:28)
[2021-04-30] MEDS: Normal Saline Flush 10 ML SYR IVP (16:40)
--- NOTE | 2021-04-30 16:43 | NUR.NOTE ---
Nursing Note: Plan of care reviewed w/ JCHIKIS Robles and OB provider; 25mcg of misoprostol to be administered PO Q2 hours while pt is continuously monitored w/ Novii. Team reviewed guidelines about maximum dose of 300mcg.
[2021-04-30] MEDS: miSOPROStol 25 MCG TAB PO (18:25)
[2021-04-30] MEDS: miSOPROStol 50 MCG TAB 25 MCG PO (20:47)
--- NOTE | 2021-04-30 23:33 | W.PM.OBNL1 ---
Date of service: 04/30/21 Time of Service: 23:34 Pelvic Exam Dilation: 1 Effacement (%): 80 station: -3 Position: LOP Cervix Position: posterior Consistency: medium Contractions Monitor Mode: External Contraction Frequency(min): q6-8 Contraction Duration(sec): 50-60 Intensity: Mild Fetus A Monitor: External (US) Heart Rate Baseline: 130 Variability: Moderate (6-25 BPM) Categories: Category I Accelerations: 15 X 15 Decelerations: None Amniotic Membrane Status: Ruptured Assessment and Plan Assessment and plan (1) Encounter for induction of labor: Status: Acute Assessment and plan: A: minimal progress in cervical ripening or advancing toward labor cvx exam remains unchanged SROM x11 hrs cervidil yesterday, 275 mcg total misoprostel given today Category 1 tracing, maternal BP 135/89, afebrile P: After discussion of options with pt and , pt wishes to rest tonight Hold further miso doses Allow to sleep AMAP through the night Re-evaluate next steps in the morning Subjective Interval history since last seen: Pt has been dozing, can feel persistent contractions but does not experience pain.
[2021-05-01] VITALS (26 sets, daily range): BP systolic 120–148; BP diastolic 75–100; PULSE 73–103; RESP 16–20; TEMP 35.9–37; BMI 35.2
--- NOTE | 2021-05-01 08:44 | W.PM.OBNL1 ---
Date of service: 05/01/21 Time of Service: 08:44 Informed Consent Informed Consent: Induction of Labor (Pitocin induction today, VE deferred) and Risk,Benefits,Alternatives Discussed Contractions Monitor Mode: External Contraction Frequency(min): irregular, mild Intensity: Mild Fetus A Monitor: External (US) Heart Rate Baseline: 130 Presentation: Cephalic Variability: Moderate (6-25 BPM) Categories: Category I Accelerations: Present Decelerations: None Amniotic Membrane Status: Ruptured (x 19 hrs) Assessment and Plan Assessment and plan (1) Encounter for induction of labor: Status: Acute Assessment and plan: A: Not in labor, SROM x19 hrs, minimal response to cervidil or misoprostel Last VE 2200 last night unchanged Via informed choice, pt declined pitocin induction in favor of sleep/rest BP 120/85 this morning, afebrile, category 1 tracing P: Team consult this morning, will begin pitocin induction now Start prophylactic PCN for ROM x20 hrs CHIKIS Riojas Hand off to CHIKIS Riojas Dr. consulting today Objective Vital Signs Reviewed: Yes Subjective Interval history since last seen: Comfortable, slept through the night, prepared for pitocin induction today. Interventions Induction Indication: Gestational Hypertension , Type of Induction: Pitocin ,
[2021-05-01] MEDS: Normal Saline Flush 10 ML SYR IVP (08:56)
[2021-05-01] MEDS: Oxytocin/Normal Saline 30 UNIT/500 ML BAG 2 UNITS IV (08:57)
[2021-05-01] MEDS: Lactated Ringers 1,000 ML 125 ML IV (08:57)
[2021-05-01] MEDS: Penicillin G POT. 5,000,000 UNITS in Normal Saline 100 ML 200 UNITS IVPB (09:26)
--- NOTE | 2021-05-01 12:31 | W.PM.OBNL1 ---
Date of service: 05/01/21 Time of Service: 12:31 Informed Consent Informed Consent: Induction of Labor (Pitocin induction today, VE deferred) and Risk,Benefits,Alternatives Discussed Pelvic Exam Comments: VE deferred due to prolonged rupture and not in active labor. Contractions Monitor Mode: External Contraction Frequency(min): 2-4 Contraction Duration(sec): 40-60 Intensity: Mild Fetus A Monitor: External (US) Heart Rate Baseline: 120 Presentation: Cephalic Variability: Moderate (6-25 BPM) Categories: Category I Accelerations: 15 X 15 Decelerations: None Assessment and Plan Assessment and plan (1) Encounter for induction of labor: Status: Acute Assessment and plan: 1. pitocin induction started this morning, pitocin is at 12 mu at this time will continue to increase 2mu every 30 minutes 2. Will reassess for contraction strength and pattern once pitocin is at 20 mu and consult with Physician at that time. KH (2) Gestational hypertension, third trimester: Status: Acute Assessment and plan: 1. BP is stable without medications. KH (3) Prolonged rupture of membranes: Status: Acute Assessment and plan: 1. receiving PCN every 4 hours IV. 2. remains afebrile. Objective Temp Pulse Resp BP 97.9 F 79 16 132/75 05/01/21 12:05 05/01/21 12:05 05/01/21 12:05 05/01/21 12:05 Laboratory Results WBC 14.15 10^3/uL (4.4-10.8) H 04/29/21 14:00 RBC 4.81 10^6/uL (3.93-5.22) 04/29/21 14:00 Hgb 15.4 g/dL (11.2-15.7) 04/29/21 14:00 Hct 43.3 % (36.0-46.0) 04/29/21 14:00 MCV 90.0 fL (80-95) 04/29/21 14:00 MCH 32.0 pg (27.0-33.0) 04/29/21 14:00 MCHC 35.6 % (32.0-36.0) 04/29/21 14:00 RDW 12.4 % (11.7-14.6) 04/29/21 14:00 Plt Count 199 10^3/uL (130-400) 04/29/21 14:00 MPV 12.0 fL (8.0-11.0) H 04/29/21 14:00 Sodium 136 mmol/L (136-145) 04/29/21 14:00 Potassium 4.0 mmol/L (3.5-5.1) 04/29/21 14:00 Chloride 102 mmol/L (98-107) 04/29/21 14:00 Carbon Dioxide 23.8 mmol/L (21.0-32.0) 04/29/21 14:00 Anion Gap 10.2 mmol/L (3-11) 04/29/21 14:00 BUN 7 mg/dL (7-18) 04/29/21 14:00 Creatinine 0.7 mg/dL (0.55-1.02) 04/29/21 14:00 Estimated GFR/1.73 m2 >= 60.00 (mL/min/1.73m2) 04/29/21 14:00 Glucose 105 mg/dL (74-106) 04/29/21 14:00 Calcium 8.7 mg/dL (8.5-10.1) 04/29/21 14:00 Total Bilirubin 0.8 mg/dL (0.2-1.0) 04/29/21 14:00 AST 24 U/L (15-37) 04/29/21 14:00 ALT 38 U/L (14-59) 04/29/21 14:00 Alkaline Phosphatase 125 U/L (46-116) H 04/29/21 14:00 Total Protein 6.9 g/dL (6.4-8.2) 04/29/21 14:00 Albumin 3.1 g/dL (3.4-5.0) L 04/29/21 14:00 COVID-19 Source Nasal/Nares 04/29/21 14:57 SARS-CoV-2 (PCR) Negative (Negative) 04/29/21 14:57 Patient ABO/Rh O Negative 04/30/21 11:25 Antibody Screen NEGATIVE 04/30/21 11:25 Vital Signs Reviewed: Yes Subjective Patient Reports: No new Complaints Interval history since last seen: Is more aware of contractions than she has since first admission. Continues to deny signs of pre-eclampsia. Sitting up in chair, rocking at times. KH Results Hemoglobin/Hematocrit: Hgb 15.4 g/dL (11.2-15.7) 04/29/21 14:00 Hct 43.3 % (36.0-46.0) 04/29/21 14:00 Abnormal Lab Findings: Abnormal Labs 04/29/21 04/29/21 14:00 14:00 WBC 14.15 H MPV 12.0 H Alkaline Phosphatase 125 H Albumin 3.1 L
[2021-05-01] MEDS: Penicillin G POT. 3,000,000 UNITS in Normal Saline 50 ML 100 UNITS IVPB ×2 (14:02→18:08)
--- NOTE | 2021-05-01 14:06 | W.PM.OBNL1 ---
Date of service: 05/01/21 Time of Service: 14:06 Informed Consent Informed Consent: Induction of Labor (Pitocin induction today, VE deferred) and Risk,Benefits,Alternatives Discussed Pelvic Exam Comments: deferred due to PROM and not indicated by patient condition. Contractions Monitor Mode: External Contraction Frequency(min): 2-4 Contraction Duration(sec): 40-60 Intensity: Mild/Moderate Fetus A Monitor: External (US) Heart Rate Baseline: 120 Variability: Moderate (6-25 BPM) Categories: Category I Accelerations: 15 X 15 Decelerations: None Assessment and Plan Assessment and plan (1) Encounter for induction of labor: Status: Acute Assessment and plan: 1. pitocin at 20 [address] Harvey who agrees that increasing pitocin up to 30 mu can be done if necessary as patient is responding to pitocin but not in active labor 3. Will reassess if we get to 30 mu or for maternal indication prior to that time. (2) Gestational hypertension, third trimester: Status: Acute Assessment and plan: 1. VS stable, continue present management. (3) Prolonged rupture of membranes: Status: Acute Assessment and plan: 1. second dose of PCN infusing at this time, will continue with PCN every 4 hours until delivery. 2. Continue to observe for any signs or symptoms of infection. Objective Temp Pulse Resp BP 98.1 F 79 16 132/75 05/01/21 13:00 05/01/21 12:05 05/01/21 12:05 05/01/21 12:05 Laboratory Results WBC 14.15 10^3/uL (4.4-10.8) H 04/29/21 14:00 RBC 4.81 10^6/uL (3.93-5.22) 04/29/21 14:00 Hgb 15.4 g/dL (11.2-15.7) 04/29/21 14:00 Hct 43.3 % (36.0-46.0) 04/29/21 14:00 MCV 90.0 fL (80-95) 04/29/21 14:00 MCH 32.0 pg (27.0-33.0) 04/29/21 14:00 MCHC 35.6 % (32.0-36.0) 04/29/21 14:00 RDW 12.4 % (11.7-14.6) 04/29/21 14:00 Plt Count 199 10^3/uL (130-400) 04/29/21 14:00 MPV 12.0 fL (8.0-11.0) H 04/29/21 14:00 Sodium 136 mmol/L (136-145) 04/29/21 14:00 Potassium 4.0 mmol/L (3.5-5.1) 04/29/21 14:00 Chloride 102 mmol/L (98-107) 04/29/21 14:00 Carbon Dioxide 23.8 mmol/L (21.0-32.0) 04/29/21 14:00 Anion Gap 10.2 mmol/L (3-11) 04/29/21 14:00 BUN 7 mg/dL (7-18) 04/29/21 14:00 Creatinine 0.7 mg/dL (0.55-1.02) 04/29/21 14:00 Estimated GFR/1.73 m2 >= 60.00 (mL/min/1.73m2) 04/29/21 14:00 Glucose 105 mg/dL (74-106) 04/29/21 14:00 Calcium 8.7 mg/dL (8.5-10.1) 04/29/21 14:00 Total Bilirubin 0.8 mg/dL (0.2-1.0) 04/29/21 14:00 AST 24 U/L (15-37) 04/29/21 14:00 ALT 38 U/L (14-59) 04/29/21 14:00 Alkaline Phosphatase 125 U/L (46-116) H 04/29/21 14:00 Total Protein 6.9 g/dL (6.4-8.2) 04/29/21 14:00 Albumin 3.1 g/dL (3.4-5.0) L 04/29/21 14:00 COVID-19 Source Nasal/Nares 04/29/21 14:57 SARS-CoV-2 (PCR) Negative (Negative) 04/29/21 14:57 Patient ABO/Rh O Negative 04/30/21 11:25 Antibody Screen NEGATIVE 04/30/21 11:25 Vital Signs Reviewed: Yes Subjective Interval history since last seen: Patient is aware of contractions and needing to breath through them. Is changing positions often and remaining relaxed. Pitocin is going to 20 mu at this time. Interventions Induction Indication: Gestational Hypertension and Other (prolonged rupture of membranes) , Type of Induction: Pitocin rate at(mU/min): 20 ,/ Other (verbal consult with Dr. Harvey done.) Results Hemoglobin/Hematocrit: Hgb 15.4 g/dL (11.2-15.7) 04/29/21 14:00 Hct 43.3 % (36.0-46.0) 04/29/21 14:00 Abnormal Lab Findings: Abnormal Labs 04/29/21 04/29/21 14:00 14:00 WBC 14.15 H MPV 12.0 H Alkaline Phosphatase 125 H Albumin 3.1 L
--- NOTE | 2021-05-01 17:43 | W.PM.OBNL1 ---
Date of service: 05/01/21 Time of Service: 17:44 Informed Consent Informed Consent: Induction of Labor (Pitocin induction today, VE deferred) and Risk,Benefits,Alternatives Discussed Pelvic Exam Dilation: 1 Effacement (%): 80 station: -2 Cervix Position: posterior Consistency: soft Vaginal Exam Presentation: Vertex Contractions Monitor Mode: External Contraction Frequency(min): 2-5 Contraction Duration(sec): 40-60 Intensity: Mild/Moderate Fetus A Monitor: External (US) Heart Rate Baseline: 120 Variability: Moderate (6-25 BPM) Categories: Category I Accelerations: 15 X 15 Decelerations: None Assessment and Plan Assessment and plan (1) Prolonged rupture of membranes: Status: Acute Assessment and plan: 1. remains afebrile 2. has received 2 doses of IV PCN 3. Leaking in small amounts clear fluid with pink tinge. EDWARD (2) Encounter for induction of labor: Status: Acute Assessment and plan: 1. pitocin was at 24 mu with fairly regular contraction pattern although mild to moderate on palpation at best 2. No cervical change following multiple doses of misoprostol and pitocin for over 8 hours 3. status is reassuring 4. pitocin is turned off when patient has decided to move forward with per previous consult with Dr. Harvey by expert medical writer. EDWARD (3) Gestational hypertension, third trimester: Status: Acute Assessment and plan: 1. BP has been stable all day today with highest reading of 139/80. Objective Temp Pulse Resp BP 98.4 F 76 16 139/80 05/01/21 16:58 05/01/21 16:58 05/01/21 16:58 05/01/21 16:58 Laboratory Results WBC 14.15 10^3/uL (4.4-10.8) H 04/29/21 14:00 RBC 4.81 10^6/uL (3.93-5.22) 04/29/21 14:00 Hgb 15.4 g/dL (11.2-15.7) 04/29/21 14:00 Hct 43.3 % (36.0-46.0) 04/29/21 14:00 MCV 90.0 fL (80-95) 04/29/21 14:00 MCH 32.0 pg (27.0-33.0) 04/29/21 14:00 MCHC 35.6 % (32.0-36.0) 04/29/21 14:00 RDW 12.4 % (11.7-14.6) 04/29/21 14:00 Plt Count 199 10^3/uL (130-400) 04/29/21 14:00 MPV 12.0 fL (8.0-11.0) H 04/29/21 14:00 Sodium 136 mmol/L (136-145) 04/29/21 14:00 Potassium 4.0 mmol/L (3.5-5.1) 04/29/21 14:00 Chloride 102 mmol/L (98-107) 04/29/21 14:00 Carbon Dioxide 23.8 mmol/L (21.0-32.0) 04/29/21 14:00 Anion Gap 10.2 mmol/L (3-11) 04/29/21 14:00 BUN 7 mg/dL (7-18) 04/29/21 14:00 Creatinine 0.7 mg/dL (0.55-1.02) 04/29/21 14:00 Estimated GFR/1.73 m2 >= 60.00 (mL/min/1.73m2) 04/29/21 14:00 Glucose 105 mg/dL (74-106) 04/29/21 14:00 Calcium 8.7 mg/dL (8.5-10.1) 04/29/21 14:00 Total Bilirubin 0.8 mg/dL (0.2-1.0) 04/29/21 14:00 AST 24 U/L (15-37) 04/29/21 14:00 ALT 38 U/L (14-59) 04/29/21 14:00 Alkaline Phosphatase 125 U/L (46-116) H 04/29/21 14:00 Total Protein 6.9 g/dL (6.4-8.2) 04/29/21 14:00 Albumin 3.1 g/dL (3.4-5.0) L 04/29/21 14:00 COVID-19 Source Nasal/Nares 04/29/21 14:57 SARS-CoV-2 (PCR) Negative (Negative) 04/29/21 14:57 Patient ABO/Rh O Negative 04/30/21 11:25 Antibody Screen NEGATIVE 04/30/21 11:25 Vital Signs Reviewed: Yes Subjective Interval history since last seen: No cervical change is noted. Patient is aware that we can place IUPC and evaluate contraction strength and continue to observe for change or we can move toward . and patient are asking appropriate questions and have appropriate concern for section but feel that due to PROM and remote from delivery with no changes since 0900 today, they would prefer to move forward with . KH Interventions Induction Indication: Gestational Hypertension and Premature Rupture of Membranes , Type of Induction: Pitocin (pitocin discontinuing. KH) , Results Hemoglobin/Hematocrit: Hgb 15.4 g/dL (11.2-15.7) 04/29/21 14:00 Hct 43.3 % (36.0-46.0) 04/29/21 14:00 Abnormal Lab Findings: Abnormal Labs 04/29/21 04/29/21 14:00 14:00 WBC 14.15 H MPV 12.0 H Alkaline Phosphatase 125 H Albumin 3.1 L
--- NOTE | 2021-05-01 18:44 | OBCE_ITS ---
Date of service: 05/01/21 Time of Service: 18:44 Assessment and Plan Assessment and plan (1) Gestational hypertension, third trimester: Status: Acute Assessment and plan: Attempted labor induction due to gestational hypertension. Laboratory studies have been normal throughout the course of attempted labor induction. Blood pressures have remained consistent in the 130s over 80s to 90s range. No signs of preeclampsia, no severe features (2) Encounter for induction of labor: Status: Acute Assessment and plan: Failed induction with no progress beyond 1 cm, 80%. Risk benefits and alternatives of section including risk of infection, bleeding, injury to surrounding organs, risk of anesthesia, risk of thromboembolism, were all explained to the patient and full informed consent was obtained. Anesthesia notified. OR crew notified. Patient will be taken for primary low transverse section. She has received antibiotics with penicillin G prolonged rupture of membranes, however she will receive 1 dose of Ancef 2 g and 500 mg of Zithromax prior to procedure for decrease risk of surgical site infection. (3) Prolonged rupture of membranes: Status: Acute Assessment and plan: Stable, afebrile, no signs or symptoms of infection History of Present Illness History of Present Illness Chief Complaint: Failed induction, prolonged rupture of membranes, gestational hypertension Narrative: Patient is a 35-year-old primigravida who had attempted labor induction over the course of many days due to gestational hypertension. Her most recent admission, she did receive cervical ripening with Cervidil and nasal Postel and had spontaneous rupture of membranes greater than 24 hours ago she did receive Pitocin augmentation despite Pitocin with a maximum of 30 milliunit, failed to change her cervix beyond 1 cm, 80% effaced. In light of this fact, and prolonged rupture of membranes, remote from delivery, decision was made for primary section. Throughout the course of attempted labor injections, both maternal and status have been reassuring. She has a category 1 heart rate tracing Consults Consult date: 05/01/21 Requesting physician: Vielka Riojas Review of Systems All systems reviewed & are unremarkable except as noted in HPI and below Eyes Eyes: Reports system reviewed and no additional complaints, except as documented Cardiovascular Cardiovascular: Reports system reviewed and no additional complaints, except as documented Respiratory Respiratory: Reports system reviewed and no additional complaints, except as documented Gastrointestinal Gastrointestinal: Reports system reviewed and no additional complaints, except as documented Genitourinary Genitourinary: Reports system reviewed and no additional complaints, except as documented Musculoskeletal Musculoskeletal: Reports system reviewed and no additional complaints, except as documented PFSH All Active Problems (Updated 05/01/21 @ 12:35 by Vielka Riojas CNM) Prolonged rupture of membranes (Acute) Encounter for induction of labor (Acute) Gestational hypertension, third trimester (Acute) Closed trimalleolar fracture of left ankle (Acute) ORIF: 04/08/18 Location: [place], [place] Family history of genetic disorder (Acute) Change in skin mole (Acute) Rh negative state in antepartum period (Acute) Medical History (Updated 05/01/21 @ 12:35 by Vielka Riojas CNM) Alcohol abuse Back pain affecting in second trimester Surgical History (Updated 04/24/21 @ 21:41 by Maria A Harris) History of ankle surgery Family History Maternal Cousin Potter syndrome x 2 pregnancies - Mat cousins children x 2 Other abnormal clinical finding Maternal cousin with a disorder of muscle fibers, unable to walk or speak Maternal Cousin Muscular dystrophy Mother Thyroid disease Sister Thyroid disease Sister Thyroid disease graves Maternal Aunt Bipolar 1 disorder Sister Depression Social History Smoking/Tobacco Use Status: Former Tobacco Use Smoking risk assessment performed?: Yes Alcohol Intake: former Drug use: Never Substance use type: does not use Do you feel safe at home: Yes Do you feel safe in your relationship?: Yes History History 2 Para 0 Hx # Term Pregnancies 0 Multiple births 0 Hx # Pregnancies 0 Ectopic pregnancies 0 AB induced 1 Hx Number of Living Children 0 AB spontaneous 0 Exam Narrative Exam Narrative: Patient is alert, active, in no acute distress. Const General: cooperative, healthy appearing, comfortable, no acute distress, well developed and well groomed Nutritional Appearance: average body habitus Orientation: alert and oriented x3 HENMT Head: normal to inspection Neck Neck: normal visual inspection Thyroid: thyroid normal Resp Effort & Inspection: normal respiratory effort Cardio Rate: regular rate Rhythm: regular rhythm GI Inspection: normal to inspection Skin General skin exam: no rashes or lesions noted Extrem General: normal to inspection and no clubbing, cyanosis or edema Results Last Vital Signs Temp 97.9 F 05/01/21 18:10 Pulse 76 05/01/21 16:58 Resp 16 05/01/21 16:58 BP 139/80 05/01/21 16:58 Labs Result diagrams: 04/29/21 14:00 04/29/21 14:00
--- NOTE | 2021-05-01 19:03 | W.ANESPRE ---
General Info Date of Service Date Performed: 05/01/21 Height: 5 ft 4.96 in Weight: 95.98 kg Body Mass Index (BMI): 35.2 Surgical Procedure: Operation Date: 05/01/21 19:30 Proposed Procedures Side Surgeon p Section Cindy Harvey, Actual Procedures Side Surgeon p Section Cindy Harvey, Pre-Op Diagnosis Post-Op Diagnosis FAILURE TO PROGRESS Meds Allergies and Home Medications Allergies Allergy/AdvReac Type Severity Reaction Status Date / Time No Known Allergies Allergy Verified 04/21/21 10:14 Home Medication Medication Instructions Recorded prenat.vits,shaheed,azb-iuly-[id number] 1 tab PO DAILY 08/23/20 Current Visit Medications: Current Medications Generic Name Dose Route Start Last Admin Trade Name Freq PRN Reason Stop Dose Admin Citric Acid/Sodium Citrate 30 ml 05/01/21 19:00 Sodium Citrate 30 Ml Cup PO PREOP TIMO Sodium Chloride 500 mls @ 0 mls/hr 04/29/21 12:43 Saline 500ml Bag IV PRN PRN As Directed Ringer's Solution 1,000 mls @ 125 mls/hr 05/01/21 08:45 05/01/21 08:57 IV 125 mls/hr INFUSION TIMO Administration Oxytocin/Sodium Chloride 30 unit in 500 mls @ 2 mls/hr 05/01/21 08:45 05/01/21 17:32 Pitocin/Normal Saline IV 0 milliunits/min INFUSION TIMO 0 mls/hr Titration Protocol 2 MILLIUNITS/MIN Penicillin G Potassium 3,000, 50 mls @ 100 mls/hr 05/01/21 14:00 05/01/21 18:08 000 units/ Sodium Chloride IVPB 100 mls/hr Q4H TIMO Administration Cefazolin Sodium/Dextrose 2 gm in 50 mls @ 100 mls/hr 05/01/21 18:45 Ancef Duplex IVPB PREOP TIMO Azithromycin 500 mg/ Sodium 250 mls @ 250 mls/hr 05/01/21 18:45 Chloride IVPB PREOP TIMO IV Miscellaneous Supplies 1 each 04/29/21 12:45 Iv Access IV DIRECTED TIMO Misoprostol 25 mcg 04/30/21 18:00 04/30/21 18:25 Misoprostol 25 Mcg Tab PO 25 mcg 1800 TIMO Administration Misoprostol 25 mcg 04/30/21 20:30 04/30/21 20:47 Misoprostol 50 Mcg Tab PO 25 mcg 2030 TIMO Administration Sodium Chloride 0 ml 04/29/21 12:43 05/01/21 08:56 Normal Saline Flush 10 Ml Syr IVP 10 ml PRN PRN Administration Terbutaline Sulfate 0.25 mg 04/29/21 12:42 Terbutaline 1 Mg/Ml Vial SC PRN PRN PFSH Active Problems Active Problems: Problem Status Onset Code Prolonged rupture of membranes O42.90 Encounter for induction of labor Z34.90 Gestational hypertension, third trimester O13.3 Closed trimalleolar fracture of left ankle S82.852A Family history of genetic disorder Z84.89 Change in skin mole D22.9 Rh negative state in antepartum period O26.899, Z67.91 Medical History Medical History (Updated 05/01/21 @ 12:35 by Vielka Riojas CNM) Alcohol abuse Back pain affecting in second trimester Surgical History Surgical History (Updated 04/24/21 @ 21:41 by Maria A Harris) History of ankle surgery Tobacco Smoking/Tobacco Use Status: Former Tobacco Use Alcohol Alcohol Intake: former Substance Use Substance use: Never Substance use type: does not use Prental History History 2 Para 0 Hx # Term Pregnancies 0 Multiple births 0 Hx # Pregnancies 0 Ectopic pregnancies 0 AB induced 1 Hx Number of Living Children 0 AB spontaneous 0 Vital Signs and Lab Results Vital Signs Most Recent Vital Signs in EMR: Most Recent Vital Signs Temp Pulse Resp BP 36.6 C 76 16 139/80 05/01/21 18:10 05/01/21 16:58 05/01/21 16:58 05/01/21 16:58 Lab Results Result Diagrams: 04/29/21 14:00 04/29/21 14:00 Blood Type / Crossmatch: Patient ABO/Rh O Negative 04/30/21 Antibody Screen NEGATIVE 04/30/21 Complete Blood Count: White Blood Count 14.15 10^3/uL (4.4-10.8) H 04/29/21 14:00 04/29/21 Red Blood Count 4.81 10^6/uL (3.93-5.22) 04/29/21 14:00 04/29/21 Hemoglobin 15.4 g/dL (11.2-15.7) 04/29/21 14:00 04/29/21 Hematocrit 43.3 % (36.0-46.0) 04/29/21 14:00 04/29/21 Platelet Count 199 10^3/uL (130-400) 04/29/21 14:00 04/29/21 Complete Metabolic Panel: Sodium Level 136 mmol/L (136-145) 04/29/21 14:00 04/29/21 Potassium Level 4.0 mmol/L (3.5-5.1) 04/29/21 14:00 04/29/21 Chloride Level 102 mmol/L (98-107) 04/29/21 14:00 04/29/21 Carbon Dioxide Level 23.8 mmol/L (21.0-32.0) 04/29/21 14:00 04/29/21 Blood Urea Nitrogen 7 mg/dL (7-18) 04/29/21 14:00 04/29/21 Creatinine 0.7 mg/dL (0.55-1.02) 04/29/21 14:00 04/29/21 Estimated GFR/1.73 m2 >= 60.00 (mL/min/1.73m2) 04/29/21 14:00 04/29/21 Calcium Level 8.7 mg/dL (8.5-10.1) 04/29/21 14:00 04/29/21 Albumin 3.1 g/dL (3.4-5.0) L 04/29/21 14:00 04/29/21 Glucose Level 105 mg/dL (74-106) 04/29/21 14:00 04/29/21 Liver Function Panel: Alanine Aminotransferase (ALT/SGPT) 38 U/L (14-59) 04/29/21 14:00 04/29/21 Aspartate Amino Transf (AST/SGOT) 24 U/L (15-37) 04/29/21 14:00 04/29/21 Coagulation Panel: No Data to Display Cardiac Panel: No Data to Display Arterial Blood Gas: No Data to Display Venous Blood Gas: No Data to Display Pancreas Panel: No Data to Display Thyroid Panel: No Data to Display Infectious Disease: Coronavirus (COVID-19)(PCR) Negative (Negative) 04/29/21 14:57 04/29/21 Coronavirus 2019 Source Nasal/Nares 04/29/21 14:57 04/29/21 Blood Cultures: No Data to Display Toxicology Panel: Urine Amphetamines Screen Negative (Negative) 04/04/21 15:30 04/04/21 Urine Benzodiazepines Screen Negative (Negative) 04/04/21 15:30 04/04/21 Urine Barbiturates Screen Negative (Negative) 04/04/21 15:30 04/04/21 Urine Cocaine Screen Negative (Negative) 04/04/21 15:30 04/04/21 Urine Methadone Screen Negative (Negative) 04/04/21 15:30 04/04/21 Urine Opiates Screen Negative (Negative) 04/04/21 15:30 04/04/21 Ur Tricyclic Antidepressants Screen Negative (Negative) 04/04/21 15:30 04/04/21 Ur Tetrahydrocannabinol (THC) Scrn Negative (Negative) 04/04/21 15:30 04/04/21 Panel: No Data to Display Anesthesia Assessment and Plan Anesthesia History Personal History: No History of Anesthesia Complications Family History: No Family History of Anesthesia Complications Exercise Tolerance Exercise Tolerance: Metabolic Equivalents>4 Pertinent Negatives Pertinent Negatives: No Major Cardiovascular Symptoms or Complaints, No Major Pulmonary Symptoms or Complaints and No History of CVA/TIA Cardiac & Pulmonary Exam Cardiac Exam: Normal S1/S2 Heart Sounds Pulmonary Exam: Clear Bilateral Breath Sounds Implantable Cardiac Device Does patient have a Pacemaker or an ICD?: No Airway Exam Known Difficult Airway: No Mallampati Class: 2 Mouth Opening: Normal (> 3cm) Thyromental Distance: Greater than 3 cm Neck Range of Motion: Full ROM Neck Circumference: Normal Teeth Condition: Normal Dentition ASA Classification ASA Score: ASA 2 Emergency Case?: No NPO Status NPO Status: NPO Clears >2 hours, Solids >8 hours Status Status: Confirmed Anesthesia Plan Resuscitation Status: Full Code Anesthesia Technique: Spinal Anesthesia Airway Planned: Natural Airway Monitors Used: Standard Monitors
[2021-05-01] MEDS: Sodium Citrate 30 ML CUP PO (19:09)
[2021-05-01] MEDS: ceFAZolin 2 GM/50 ML BAG IVPB (19:24)
[2021-05-01] MEDS: AZITHROMYCIN 500 MG in Normal Saline 250 ML 250 MG IVPB (19:39)
[2021-05-01] MEDS: Bupivacaine LIPOSOME/PF 133 MG/10 ML VIAL IJ (20:00)
[2021-05-01] MEDS: Bupivacaine 0.25% Pres-Free 10 ML VIAL (20:00)
[2021-05-01] MEDS: miSOPROStol 100 MCG TAB 600 MCG PO (20:30)
--- NOTE | 2021-05-01 20:35 | W.PM.OBCSECT ---
Date of service: 05/01/21 Time of Service: 20:35 Operative Note Operative Note Delivery Method: Unscheduled STAT: No DATE OF PROCEDURE: 05/01/21 PRE-OP DIAGNOSES: Failed induction, prolonged rupture of membranes POST-OP DIAGNOSES: same PROCEDURE: Primary low transverse section SURGEON: Cindy Harvey Certified Recreational Therapist: Vielka Riojas Anesthesia: spinal Estimated blood loss (mL): 500 Pathology: none sent Complications: None Patient was transported to: floor Patient's condition: stable Indications: Failed induction with prolonged rupture of membranes Findings: Normal-appearing tubes, ovaries. 3 cm posterior fundal pedunculated uterine fibroid. Delivery of viable male infant weighing 8 pounds, 8 ounces with Apgars of 8 and 9 Procedure Description: After full informed consent was obtained, patient was taken the operating suite with an IV running where she is placed in the seated position. Spinal anesthesia was administered, tested and found to be adequate. Patient was then placed in the dorsal supine position with leftward tilt. Vaginal preparation was performed with Betadine and Baldwin catheter inserted for continuous bladder drainage. Patient had pneumatic compression stockings in place for DVT prophylaxis. She received 2 g of Ancef and IV Zithromax, 500 mg was running at the time of onset of surgery. Timeout was performed. Pfannenstiel skin incision was made carried down to the underlying fascia which was then nicked in the midline and the fascial incision extended laterally. The rectus muscles were identified in the midline and . The peritoneum was identified tented up and entered sharply. The peritoneal incision was then extended superiorly and inferiorly and the bladder blade was inserted. The vesicouterine peritoneum was identified tented up and entered sharply and the bladder flap was created. Bladder blade was reinserted and a low transverse uterine incision was made with a scalpel and extended bluntly laterally. The vertex was delivered atraumatically. There is evidence of nuchal cord x1 which was delivered through. Shoulders followed with ease. Three-vessel cord was noted clamped x2 and cut and the infant was handed off to the waiting technician preventative medicine. At this point a segment of cord for gases was not were obtained and held. Cord blood sample was obtained. The placenta was sent manually expressed from the uterus. Uterus exteriorized and cleared of all clot and debris. The uterine incision was then closed using 0 Monocryl suture in a 2 layer fashion. First layer was running locked, second layer imbricated. Hemostasis was achieved. At this point inspection of the tubes and ovaries were normal. There is noted to be a 3 cm posterior fundal pedunculated uterine fibroid. At this point the uterus was returned to the abdomen. Uterine incision was then reinspected and found to be hemostatic. Fascial incision was closed using 0 Vicryl suture in a running fashion. Subcutaneous tissue irrigated with copious amounts of normal saline and the subcu space closed with 3-0 Vicryl in a simple interrupted fashion. At this point 50-50 of Exparel and quarter percent Marcaine were infiltrated into the subcu space. The skin edge was reapproximated with 4-0 Monocryl suture in a subcuticular fashion. Mastisol, Steri-Strips and sterile dressing were placed. The uterus was then expressed and found to be clear of clot. Patient was taken back to the floor with a Baldwin catheter draining clear yellow urine. Complications: None apparent Findings: Delivery of a viable male infant weighing 8 pounds 8 ounces with Apgars 8 and 9. Normal-appearing fallopian tubes and ovaries. Uterus normal with the addition of a 3 cm posterior pedunculated uterine fibroid. Blood loss: 500 mL
[2021-05-02 00:15] VITALS: BP 138/86; PULSE 71; RESP 16; TEMP 37.1
[2021-05-02] MEDS: Ketorolac 30 MG/ML VIAL 15 MG IVP ×4 (02:31→20:31)
[2021-05-02 02:37] VITALS: BP 132/82; PULSE 80; RESP 16; TEMP 37.1
[2021-05-02] MEDS: miSOPROStol 100 MCG TAB 600 MCG PO (06:16)
[2021-05-02 06:20] VITALS: BP 119/71; PULSE 87; RESP 16; TEMP 37
--- NOTE | 2021-05-02 06:45 | OBPPV_ITS ---
Date of service: 05/02/21 Time of Service: 06:46 Assessment and Plan Assessment and plan (1) Status post primary low transverse section: Status: Acute Assessment and plan: Routine post op care. CBC this AM (2) Prolonged rupture of membranes: Status: Acute (3) Failed induction of labor, antepartum: Status: Acute (4) Gestational hypertension, third trimester: Status: Acute Subjective Subjective Interval history: Doing well Patient comments: No complaints and Pain well controlled [place] baby status: Doing well, Nursing well and Strong Bonding Observed feeding status: Exclusively breast feeding Exam Physical Exam Vital signs: Temp Pulse Resp BP 98.6 F 87 16 119/71 05/02/21 06:20 05/02/21 06:20 05/02/21 06:20 05/02/21 06:20 Constitutional Constitutional: no acute distress HEENT Exam HEENT Exam: Normal Respiratory Exam Respiratory Exam: Normal Cardiovascular Exam Cardiovascular Exam: Normal Abdominal Exam Abdomen: Tender Fundal Exam Fundus: Below Umbilicus and Firm Extremities Exam Extremity Exam: negative Calf Tenderness and Edema Skin Exam Skin Exam: Normal Neurological Exam Neurological Exam: Normal Psychiatric Exam Psychiatric Exam: Normal Results Hemoglobin/Hematocrit: Hgb 15.4 g/dL (11.2-15.7) 04/29/21 14:00 Hct 43.3 % (36.0-46.0) 04/29/21 14:00 Abnormal Lab Findings: Abnormal Labs 04/29/21 04/29/21 14:00 14:00 WBC 14.15 H MPV 12.0 H Alkaline Phosphatase 125 H Albumin 3.1 L
[2021-05-02 06:57] LABS: Abs Immature Grans 0.06 10^3/uL (0.0-0.06); Absolute Basophil Count 0.03 10^3/uL (0.0-0.2); Absolute Eosinophil Count 0.04 10^3/uL (0.0-0.7); Absolute Lymphocyte Count 1.52 10^3/uL (1.2-3.4); Absolute Neutrophil Count 10.73 10^3/uL (1.2-6.7); Basophils % 0.2; Eosinophils % 0.3; HCT 38.4 % (36.0-46.0); HGB 13.5 g/dL (11.2-15.7); Immature Grans % 0.4; Lymphocytes % 11.3; MCH 32.1 pg (27.0-33.0); MCHC 35.2 % (32.0-36.0); MCV 91.2 fL (80-95); MPV 12.2 fL (8.0-11.0); Neutrophils % 79.8; Nucleated RBC 0 %; Platelet Count 155 10^3/uL (130-400); RBC 4.21 10^6/uL (3.93-5.22); RDW 12.5 % (11.7-14.6); RDW-SD 41.1 fL; WBC 13.45 10^3/uL (4.4-10.8)
[2021-05-02 06:58] LABS: Absolute Monocyte Count 1.08 10^3/uL (0.1-0.8)
[2021-05-02] MEDS: Normal Saline Flush 10 ML SYR IVP ×3 (08:22→20:33)
[2021-05-02 08:32] VITALS: BP 134/73; PULSE 63; RESP 16; TEMP 36.7; O2SAT 97
[2021-05-02] MEDS: Docusate Sodium 100 MG CAP PO (12:33)
--- NOTE | 2021-05-02 17:03 | W.ANESPOSTOP ---
Postoperative Evaluation Date, Time and Location Date Performed: 05/02/21 Time Performed: 17:03 Patient Location: Obstetrics Vital Signs Most Recent Imported Vital Signs: Most Recent Vital Signs Temp Pulse Resp BP Pulse Ox 36.7 C 63 16 134/73 97 05/02/21 08:32 05/02/21 08:32 05/02/21 08:32 05/02/21 08:32 05/02/21 08:32 Pain Score Most Recent Pain Score: Most Recent Pain Score Pain Level 0 05/01/21 22:04 Assessment Mental Status: Awake (Alert & Oriented to Patient Baseline) Airway and Respiratory Function: Patent airway with normal (patient baseline) respiratory exam Cardiovascular Function: Hemodynamically Stable Hydration Status: Adequately Hydrated Nausea & Vomiting: No Nausea or Vomiting Pain: Pt. Denies Any Pain Peripheral Nerve Block: Patient did not receive a nerve block Postoperative Comments:: Seen earlier this morning. No questions, patient was very happy.
[2021-05-02 20:20] VITALS: BP 150/90; PULSE 78; RESP 18; TEMP 37
[2021-05-03 01:03] VITALS: BP 120/75; PULSE 75; RESP 18
[2021-05-03] MEDS: Ibuprofen 600 MG TAB PO ×3 (02:11→23:33)
[2021-05-03] MEDS: Acetaminophen 325 MG TAB 650 MG PO ×5 (05:05→23:33)
[2021-05-03 08:20] VITALS: BP 123/73; PULSE 89; RESP 20; TEMP 36.5; O2SAT 99
--- NOTE | 2021-05-03 08:51 | W.PM.OBPNV1 ---
Date of service: 05/03/21 Time of Service: 08:52 Assessment and Plan Assessment and plan (1) Status post primary low transverse section: Status: Acute Assessment and plan: Postoperative day #2, status post primary low transverse section after failed induction due to gestational hypertension. Also with prolonged rupture of membranes. Doing well. Blood pressure stable. Afebrile. Pain well controlled. May consider discharge later today pending assessment of bilirubin for baby. (2) Gestational hypertension, third trimester: Status: Acute Assessment and plan: Stable blood pressures Subjective Subjective Interval history: Patient seen and examined this morning. Doing well. Breast-feeding without difficulty. Pain is reasonably well controlled. She is tolerating a regular diet. Patient comments: No complaints, Pain well controlled, Incisional pain, Tolerating diet and Flatus present [place] baby status: Doing well, Rooming in and Strong Bonding Observed feeding status: Exclusively breast feeding Exam Physical Exam Vital signs: Temp Pulse Resp BP Pulse Ox 97.7 F 89 20 123/73 99 05/03/21 08:20 05/03/21 08:20 05/03/21 08:20 05/03/21 08:20 05/03/21 08:20 Constitutional Constitutional: no acute distress HEENT Exam HEENT Exam: Normal Neck Exam Neck Exam: Normal Respiratory Exam Respiratory Exam: Normal Cardiovascular Exam Cardiovascular Exam: Normal Abdominal Exam Abdomen: Other Comments: Soft, nontender. Incision clean, dry, intact. 1 area of slight ooze in the midline. No bleeding active. No surrounding erythema or induration. Fundal Exam Fundus: Below Umbilicus and Firm Extremities Exam Extremity Exam: Edema (1+, bilateral); negative Calf Tenderness Skin Exam Skin Exam: Normal Detailed Neurological Exam Neurological: Present alert and oriented X3 DetailedPsychiatric Exam Psych Exam: Normal Affect, Normal Thougth Process, Cooperative, Good Insight and Good Judgement Results Hemoglobin/Hematocrit: Hgb 13.5 g/dL (11.2-15.7) 05/02/21 06:43 Hct 38.4 % (36.0-46.0) 05/02/21 06:43 Abnormal Lab Findings: Abnormal Labs 04/29/21 04/29/21 05/02/21 14:00 14:00 06:43 WBC 14.15 H 13.45 H MPV 12.0 H 12.2 H Absolute Neutrophils 10.73 H Absolute Monocytes 1.08 H Alkaline Phosphatase 125 H Albumin 3.1 L
--- NOTE | 2021-05-03 08:58 | W.PM.OBDISCH ---
Date of service: 05/03/21 Time of Service: 08:58 DS: Diagnosis Discharge Diagnosis (1) Status post primary low transverse section: Status: Acute Asessment and Plan: Patient is day #2 status post primary low transverse section due to failed induction and prolonged rupture of membranes. Induction performed for gestational hypertension at term. She had an uncomplicated postoperative course and was discharged home postoperative day #2, ambulating, tolerating a regular diet and oral pain medication with stable vital signs. Follow-up will be in the office in 2 and 6-week. (2) Gestational hypertension, third trimester: Status: Acute (3) Failed induction of labor, antepartum: Status: Acute Discharge Plan Disposition Patient Disposition: HOME Condition: Good Discharge Details Reason For Visit: Gestational Hypertension, primary section Admit Date/Time: 04/29/21 12:42 Admit Provider: Maria A Harris Attending Provider: Maria A Harris [facility] Course: After multiday induction for gestational hypertension with cervical ripening, patient had spontaneous rupture of membranes. Rupture of membranes was prolonged, greater than 24 hours though the patient remained afebrile with appropriate heart rate tracing. She redid received IV antibiotics for prophylaxis. She had Pitocin augmentation to a maximum of 30 milliunits with regular contractions, however no cervical change. Due to this, she underwent a primary low transverse section for delivery of viable male weighing 8 pounds 8 ounces. Postoperative course was uncomplicated and she was discharged home postoperative day #2, ambulating, tolerating a regular diet and oral pain medication. Home Meds and New Rx's Prescriptions: New ibuprofen 800 mg tablet 800 mg PO Q8H Qty: 60 RF: 1 docusate sodium [Colace] 100 mg capsule 100 mg PO BID Qty: 20 RF: 0 oxycodone-acetaminophen [Percocet] 5-325 mg tablet 1 tab PO Q8H PRNQty: 7 RF: 0 Continued prenat.vits,shaheed,[id number] Tablet 1 tab PO DAILY RF: 0 Discharge Instructions Stand Alone Forms: BC Discharge Instruc Activity:: Activity as Tolerated Equipment/Supplies:: No Equipment Needed Diet:: As Tolerated Discharge Orders Discharge Orders: Discharge Order (Routine); Ordered 05/03/21 Ordered By: Cindy Harvey OB:DS Summary Contraception Discussed Contraception Discussed: Yes, Gender-Baby A: Male weight: 8 lb 8 oz Status at Discharge Functional status at discharge: independent ambulation Overall status at discharge: patient is progressing back to baseline Mental Status: mental status grossly normal Speech and Movement: speech and movement normal Mood: congruent mood and irritable mood Affect: normal affect Exam Physical Exam Vital signs: Temp Pulse Resp BP Pulse Ox 97.7 F 89 20 123/73 99 05/03/21 08:20 05/03/21 08:20 05/03/21 08:20 05/03/21 08:20 05/03/21 08:20 Constitutional Comments: Please see physical exam from progress note dated 05/03/2021. PFSH All Active Problems Failed induction of labor, antepartum (Acute) Status post primary low transverse section (Acute) Prolonged rupture of membranes (Acute) Encounter for induction of labor (Acute) Gestational hypertension, third trimester (Acute) Closed trimalleolar fracture of left ankle (Acute) ORIF: 04/08/18 Location: [place], [place] Family history of genetic disorder (Acute) Change in skin mole (Acute) Rh negative state in antepartum period (Acute) Medical History Alcohol abuse Back pain affecting in second trimester Surgical History History of ankle surgery Family History Maternal Cousin Potter syndrome x 2 pregnancies - Mat cousins children x 2 Other abnormal clinical finding Maternal cousin with a disorder of muscle fibers, unable to walk or speak Maternal Cousin Muscular dystrophy Mother Thyroid disease Sister Thyroid disease Sister Thyroid disease graves Maternal Aunt Bipolar 1 disorder Sister Depression Social History Smoking/Tobacco Use Status: Former Tobacco Use Smoking risk assessment performed?: Yes Alcohol Intake: former Drug use: Never Substance use type: does not use Do you feel safe at home: Yes Do you feel safe in your relationship?: Yes History History 2 Para 0 Hx # Term Pregnancies 0 Multiple births 0 Hx # Pregnancies 0 Ectopic pregnancies 0 AB induced 1 Hx Number of Living Children 0 AB spontaneous 0 DS: Data Vitals/I&O Vitals and I&O: Vital Signs Temperature 97.7 F 05/03/21 08:20 Temperature Source Oral 05/01/21 22:04 Pulse 89 05/03/21 08:20 Pulse Rhythm Regular 05/03/21 08:20 Respiratory Rate 20 05/03/21 08:20 Respiratory Depth Normal 04/29/21 19:00 Blood Pressure 123/73 05/03/21 08:20 Blood Pressure Mean 89 05/03/21 08:20 Pulse Oximetry 99 05/03/21 08:20 Oxygen Delivery Method Room Air 04/29/21 13:43 Oxygen Flow Rate 0 04/29/21 13:43 Pain Level 4 05/03/21 08:20 Comment 05/01/21 03:53 Intake & Output 05/02/21 05/02/21 05/03/21 11:59 23:59 11:59 Intake Total 700 / 3000 2300 / 3000 550 / 550 Output Total 2350 / 8350 6000 / 8350 Balance -1650 / -5350 -3700 / -5350 550 / 550 Intake: IV 500 / 500 Oral 200 / 2500 2300 / 2500 550 / 550 Output: Urine 2350 / 8350 6000 / 8350 Other: Urine Color Yellow Urine Appearance Clear Data Completed and Pending Labs on day of discharge: Labs from last 24 hours 05/02/21 06:43 Screen Negative
[2021-05-03] MEDS: Docusate Sodium 100 MG CAP PO ×2 (09:02→17:36)
[2021-05-03 12:55] VITALS: BP 135/84; PULSE 85; RESP 18; TEMP 36.6; O2SAT 98
[2021-05-03 20:35] VITALS: BP 134/80; PULSE 76; RESP 18; TEMP 37; O2SAT 98
[2021-05-03 23:57] VITALS: BP 130/87; PULSE 79; RESP 18; TEMP 36.5; O2SAT 99
[2021-05-04 04:42] VITALS: BP 138/86; PULSE 72; RESP 18; TEMP 37; O2SAT 99
[2021-05-04] MEDS: Ibuprofen 600 MG TAB PO ×2 (06:15→16:35)
[2021-05-04] MEDS: Acetaminophen 325 MG TAB 650 MG PO ×2 (06:15→16:35)
[2021-05-04 07:45] VITALS: BP 136/82; PULSE 74; RESP 16; TEMP 36.4; O2SAT 97
[2021-05-04] MEDS: Docusate Sodium 100 MG CAP PO ×2 (07:56→16:35)
--- NOTE | 2021-05-04 08:47 | OBPPV_ITS ---
Date of service: 05/04/21 Time of Service: 08:47 Assessment and Plan Assessment and plan (1) Status post primary low transverse section: Status: Acute Assessment and plan: Postoperative day #3, status post primary low transverse section. Doing well. No issues. Anticipate discharge home today, or tomorrow based on baby's. Baby is having a sepsis evaluation and working on feeding today. She'll follow up in the office in 2 weeks (2) Prolonged rupture of membranes: Status: Acute Subjective Subjective Interval history: Patient seen and examined this morning. Doing well from a physical standpoint. Baby is having a bit of a weight loss, and some unstable blood sugars and is having a sepsis evaluation. I was present during pediatric visit with the patient this morning. Mom is overall doing well. Appetite is good. Diet is appropriate. Pain is well controlled. Again, all discharge instructions were completed today. She may be discharged today if baby is discharged home, or tomorrow as desired Patient comments: No complaints, Pain well controlled, Incisional pain, Tolerating diet and Flatus present Adkins baby status: Doing well, Nursing well and Strong Bonding Observed feeding status: Exclusively breast feeding Exam Physical Exam Vital signs: Temp Pulse Resp BP Pulse Ox 98.6 F 72 18 138/86 99 05/04/21 04:42 05/04/21 04:42 05/04/21 04:42 05/04/21 04:42 05/04/21 04:42 Constitutional Constitutional: no acute distress HEENT Exam HEENT Exam: Normal Neck Exam Neck Exam: Normal Respiratory Exam Respiratory Exam: Normal Cardiovascular Exam Cardiovascular Exam: Normal Abdominal Exam Abdomen: Tender Comments: Incision clean, dry, intact. Steri-Strips in place Fundal Exam Fundus: Below Umbilicus and Firm Extremities Exam Extremity Exam: Edema (1+, bilateral) Skin Exam Skin Exam: Normal Psychiatric Exam Psychiatric Exam: Normal DetailedPsychiatric Exam Psych Exam: Normal Affect, Normal Thougth Process, Cooperative, Good Insight and Good Judgement Results Hemoglobin/Hematocrit: Hgb 13.5 g/dL (11.2-15.7) 05/02/21 06:43 Hct 38.4 % (36.0-46.0) 05/02/21 06:43 Abnormal Lab Findings: Abnormal Labs 04/29/21 04/29/21 05/02/21 14:00 14:00 06:43 WBC 14.15 H 13.45 H MPV 12.0 H 12.2 H Absolute Neutrophils 10.73 H Absolute Monocytes 1.08 H Alkaline Phosphatase 125 H Albumin 3.1 L
[2021-05-04 16:40] VITALS: BP 137/84; PULSE 85; RESP 18; TEMP 36.4; O2SAT 100
== END 2021-05-04 17:35 | disposition home or self-care (01) | DRG 787 ==
PROVIDERS: Obstetrics & Gynecology; Admitting Provider Advanced Practice Midwife; PCP Nurse Practitioner Family; Visit Provider Advanced Practice Midwife
PROC: 10D00Z1 Extraction of Products of Conception, Low, Open Approach (ICD-10-PCS; CPT 59514; principal; 2021-05-01 19:30)
DX: O13.4 Gestational [pregnancy-induced] hypertension without significant proteinuria, complicating childbirth (principal); O36.0930 Maternal care for other rhesus isoimmunization, third trimester, not applicable or unspecified; Z37.0 Single live birth; Z3A.39 39 weeks gestation of pregnancy; O61.0 Failed medical induction of labor; O34.13 Maternal care for benign tumor of corpus uteri, third trimester; O99.344 Other mental disorders complicating childbirth; O42.12 Full-term premature rupture of membranes, onset of labor more than 24 hours following rupture
CPT/HCPCS: 59514; 36415; 80053; 85027; 85461; 86850; 86900; 86901; 87635; 90384; 59200; 85025; J0456; J0690; J1885; J2405; J2540; J2590; J2790; J3010; J3490

== ENCOUNTER 2021-06-12 16:04 | Outpatient (REF) | payer BC, SELFPAY ==
[2021-06-14 15:13] LABS: Chlamydia Result Negative (Negative); GC Result Negative (Negative)
== END 2021-06-12 16:05 | disposition home or self-care (01) ==
LOC: LBN 16:04
PROVIDERS: PCP Nurse Practitioner Family; Visit Provider Obstetrics & Gynecology
DX: Z11.3 Encounter for screening for infections with a predominantly sexual mode of transmission (principal)
CPT/HCPCS: 87491; 87591

== ENCOUNTER 2022-01-31 17:36 | Inpatient (IN) | payer BC, SELFPAY ==
[2022-01-31 17:45] VITALS: BP 116/102; PULSE 101; RESP 16; TEMP 37; O2SAT 99
[2022-01-31 18:15] LABS: Lactate 0.9 mmol/L (0.6-1.4)
--- NOTE | 2022-01-31 18:15 | DI.CT_ITS ---
Exam(s) CT ABDOMEN PELVIS W EXAM: CT ABDOMEN PELVIS W CLINICAL HISTORY: ABDOMINAL PAIN CENTRAL AND RLQ, REBOUND TENDER TECHNIQUE: Imaging Protocol: Axial computed tomography images with coronal and sagittal reformatted images were created and reviewed CONTRAST MATERIAL: Intravenous: Omnipaque 350 Contrast volume:100 mL Oral: No COMPARISON: No exams were available for comparison FINDINGS: ABDOMEN: Lung Bases: Normal where visualized. Liver: Normal density. No measurable mass. Portal, Superior Mesenteric, and Splenic Veins: Unremarkable. Gallbladder and Biliary Tract: No radiodense calculus or dilation. Pancreas: Normal density, no abnormal calcifications or inflammatory process. Spleen: Normal. Adrenals: No masses seen. Kidneys: Normal size, contour and axis. No radiodense stones or obstructive uropathy. No masses seen. Abdominal Aorta: Abdominal portion non-dilated. Bowel: No evidence of bowel obstruction. There is mild wall thickening seen in the terminal ileum. There is air seen within the appendix. No Eula appendiceal inflammatory changes are seen. The appen rosy does measure up to 8 mm in diameter. Peritoneal Cavity: No ascites, collection or mesenteric inflammatory response. No free air. Lymph Nodes: Within normal limits. Bones: Within normal limits for the patient's age. Soft Tissues: Unremarkable. PELVIS: Bladder: Symmetric distention, no gross wall thickening. Reproductive Organs: There is an IUD which is in good position. Lymph Nodes: Within normal limits. Bones: Within normal limits for the patient's age. IMPRESSION: 1. There is mild thickening of the wall of the terminal ileum suspicious for an infectious/inflammato ry enteritis. 2. The appendix measures up to 8 mm in diameter but there is air seen within the appendix and no E[place] appendiceal inflammatory changes are seen. A very early appendicitis cannot be entirely excluded. Please correlate clinically. Follow-up as clinically appropriate. This may include a repeat CT scan . RADIATION DOSE DELIVERED: 1,144.4mGy.cm Total DLP DATA REPOSITORY: All CT scans at this facility are submitted to the National Radiology Data Registry (NRDR) Dose Index Registry (DIR) with the [employer] (ACR). RADIATION OPTIMIZATION: All CT scans at this facility use at least one of these dose optimization te chniques: automated exposure control; mA and/or kV adjustment per patient size (includes targeted exa ms where dose is matched to clinical indication); or iterative reconstruction.
[2022-01-31 18:19] LABS: Abs Immature Grans 0.02 10^3/uL (0.0-0.06); Absolute Basophil Count 0.03 10^3/uL (0.0-0.2); Absolute Eosinophil Count 0.01 10^3/uL (0.0-0.7); Absolute Lymphocyte Count 0.53 10^3/uL (1.2-3.4); Absolute Monocyte Count 0.33 10^3/uL (0.1-0.8); Absolute Neutrophil Count 7.27 10^3/uL (1.2-6.7); Basophils % 0.4; Eosinophils % 0.1; HCT 41.3 % (36.0-46.0); HGB 14.7 g/dL (11.2-15.7); Immature Grans % 0.2; Lymphocytes % 6.5; MCH 30.5 pg (27.0-33.0); MCHC 35.6 % (32.0-36.0); MCV 86 fL (80-95); MPV 11.1 fL (8.0-11.0); Neutrophils % 88.8; Platelet Count 190 10^3/uL (130-400); RBC 4.82 10^6/uL (3.93-5.22); RDW 11.9 % (11.7-14.6); RDW-SD 37.2 fL; WBC 8.19 10^3/uL (4.4-10.8)
[2022-01-31 18:23] LABS: Bilirubin Negative (Negative); Blood Small (Negative); Clarity Sl Cloudy (Clear); Glucose Negative (Negative); Ketones Negative (Negative); Leukocyte Esterase Negative (Negative); Nitrite Negative (Negative); Specific Gravity 1.015 (1.005-1.025); Urobilinogen 0.2 EU/dL (Up TO 0.2); pH 6.5 (5-8)
[2022-01-31 18:30] LABS: Bacteria Rare HPF (Negative); C & S Indicated? No; Casts Negative LPF (Negative); Crystals Negative HPF (Negative); Epithelial Cells Rare HPF (Negative); Mucus Negative (Negative); WBC Negative HPF (0-5)
[2022-01-31 18:34] LABS: ALT 23 U/L (14-59); AST 19 U/L (15-37); Albumin 4.4 g/dL (3.4-5.0); Alkaline Phosphatase 86 U/L (46-116); Anion Gap 7.8 mmol/L (3-11); BUN 8 mg/dL (7-18); Bilirubin, Total 1.1 mg/dL (0.2-1.0); CO2 26.2 mmol/L (21.0-32.0); CREATININE 0.9 mg/dL (0.55-1.02); Calcium 9.1 mg/dL (8.5-10.1); Chloride 100 mmol/L (98-107); Glucose 106 mg/dL (74-106); Lipase 59 U/L (73-393); Potassium 3.7 mmol/L (3.5-5.1); Sodium 134 mmol/L (136-145)
[2022-01-31] MEDS: Omnipaque 350 MG/ML 100 ML BTL IJ (18:36)
[2022-01-31] MEDS: Normal Saline Flush 10 ML SYR IVP (18:37)
[2022-01-31] MEDS: Lactated Ringers 500 ML IV (18:54)
[2022-01-31 18:56] VITALS: BP 109/54; PULSE 99; RESP 18; TEMP 37.8; O2SAT 99
--- NOTE | 2022-01-31 19:05 | DI.VRAD_ITS ---
Addendum created by Lina Noble MD on 01/31/2022 7:12:55 PM EDT: THIS REPORT CONTAINS FINDINGS THAT MAY BE CRITICAL TO PATIENT CARE. The findings were verbally communicated via telephone conference with DAVID AHUMADA at 7:11 PM EDT on 01/31/2022. The findings were acknowledged and understood. Initial report created on 01/31/2022 7:05:01 PM EDT: PROCEDURE INFORMATION: Exam: CT Abdomen And Pelvis With Contrast Exam date and time: 01/31/2022 6:36 PM Age: 36 years old Clinical indication: Abdominal pain central and rlq, rebound tender TECHNIQUE: Imaging protocol: Computed tomography of the abdomen and pelvis with contrast. Contrast material: OMNIPAQUE 350; Contrast volume: 100 ml; Contrast route: INTRAVENOUS (IV); COMPARISON: US OB EVONNE WEIGHT 02/05/2021 7:10 AM FINDINGS: Tubes, catheters and devices: An intrauterine device is present. Liver: Unremarkable liver. No mass identified. Gallbladder and bile ducts: The gallbladder is unremarkable. No calcified stones. No ductal dilation. Pancreas: No pancreatic lesion seen. Spleen: The spleen is unremarkable. No splenomegaly. No ductal dilation. Adrenal glands: The adrenal glands are unremarkable. No defined mass. Kidneys and ureters: The kidneys are unremarkable. No hydronephrosis. Stomach and bowel: No bowel obstruction. No mucosal thickening. Appendix: The appendix is slightly increased in diameter measuring up to 8 mm. However air is noted within the appendix and there is no severe periappendiceal inflammation. Intraperitoneal space: Mild inflammatory stranding seen in the right lower quadrant mesentery. Vasculature: No abdominal aortic aneurysm. Lymph nodes: No enlarged lymph nodes. Urinary bladder: Unremarkable urinary bladder. Reproductive: An intrauterine device is present. Bones/joints: No acute fracture. Soft tissues: No significant subcutaneous soft tissue abnormality. IMPRESSION: 1. No evidence of bowel obstruction. 2. Minimal increase in size of the appendix, with minimal periappendiceal inflammatory changes. These findings could represent a mesenteric inflammatory process or very early appendicitis. Clinical correlation and close interval monitoring is recommended. Dictated and Authenticated by: Lina Noble MD. Ordering:JUAN Jay MD
--- NOTE | 2022-01-31 19:18 | W.ED.GENAD ---
Discharge Plan Disposition Patient Disposition: [facility] INPATIENT Condition: Serious Discharge Details Chief Complaint: Abd Prob Clinical Impression: Acute appendicitis Admit Date/Time: 01/31/22 19:18 Admit Provider: Marycruz Recinos Attending Provider: Marycruz Recinos Primary Care Provider: Dina Maciel ED Provider: Pierre Ramirez Discharge Instructions Activity:: see above Activity:: see above Equipment/Supplies:: No Equipment Needed Diet:: soft/bland Discharge Orders Discharge Orders: Discharge Order (Routine); Ordered 02/01/22 Ordered By: Marycruz Recinos Discharge Data Discharge Date/Time-TO BE ENTERED AT DEPARTURE: 01/31/22 20:23 Medical Decision Making 36-year-old female presents with right lower quadrant abdominal pain. Patient tender right lower quadrant. CT of the abdomen pelvis was obtained to assess for acute surgical pathology and interpreted by radiology: IMPRESSION: 1. No evidence of bowel obstruction. 2. Minimal increase in size of the appendix, with minimal periappendiceal inflammatory changes.? These findings could represent a mesenteric inflammatory process or very early appendicitis. Clinical correlation and close interval monitoring is recommended.? Concern for acute appendicitis. I have discussed case with on-call general surgeon, Dr. Chowdary, reviewed diagnostic, she will admit the patient. No antibiotics recommended at this time care transition at time of admission. HPI General Mode of arrival: ambulatory. Date/Time Provider Initiated Documentation: 01/31/22 17:57. Limitations to Documentation: no limitations. Information obtained by: patient. HPI Narrative: 36-year-old female presents with right lower quadrant abdominal pain that started earlier today and has persisted. Patient was seen at urgent care and sent to the ED for further evaluation. Pain localized to right lower quadrant. Moderate intensity. No modifiers. No associated diarrhea. No vaginal discharge. Related Data Home Medications Medication Instructions Recorded Confirmed prenat.vits,shaheed,[id number] 1 tab PO DAILY 08/23/20 01/31/22 copper 380 square mm intrauterine 1 device intrauterine ONCE 08/03/21 01/31/22 device (ParaGard T 380A) sertraline 25 mg tablet 25 mg PO DAILY #60 tabs 11/01/21 01/31/22 L. acidophilus,casei,rhamnosus 50 1 cap PO DAILY #30 caps 02/01/22 billion cell capsule,delayed release (Bio-K plus) Previous Rx's Medication Instructions Recorded sertraline 25 mg tablet 25 mg PO DAILY #60 tabs 11/01/21 L. acidophilus,casei,rhamnosus 50 1 cap PO DAILY #30 caps 02/01/22 billion cell capsule,delayed release (Bio-K plus) Allergies Allergy/AdvReac Type Severity Reaction Status Date / Time No Known Allergies Allergy Verified 02/11/22 10:46 General Stated Complaint: Abd Prob TRAY: 3 Review of Systems All systems reviewed & are unremarkable except as noted in HPI and below Constitutional Constitutional: Denies fever(s) Gastrointestinal Gastrointestinal: Reports as per HPI Genitourinary Genitourinary: Denies vaginal discharge PFSH All Active Problems (Updated 02/19/22 @ 11:23 by Pierre Ramirez MD) Acute appendicitis (Acute) Breast pain, left (Acute) RLQ abdominal pain (Acute) Yeast dermatitis (Acute) Anxiety (Chronic) Closed trimalleolar fracture of left ankle (Acute) ORIF: 04/08/18 Location: [place], [place] Family history of genetic disorder (Acute) Change in skin mole (Acute) Medical History Alcohol abuse Back pain affecting in second trimester Failed induction of labor, antepartum Gestational hypertension, third trimester IUD migration Rh negative state in antepartum period Surgical History History of ankle surgery Status post primary low transverse section Family History Maternal Cousin Potter syndrome x 2 pregnancies - Mat cousins children x 2 Other abnormal clinical finding Maternal cousin with a disorder of muscle fibers, unable to walk or speak Maternal Cousin Muscular dystrophy Mother Thyroid disease Sister Thyroid disease Sister Thyroid disease graves Maternal Aunt Bipolar 1 disorder Sister Depression Social History Smoking/Tobacco Use Status: Former Tobacco Use Smoking risk assessment performed?: Yes Alcohol Intake: former Drug use: Never Substance use type: does not use Do you feel safe at home: Yes Do you feel safe in your relationship?: Yes History History 2 Para 1 Hx # Term Pregnancies 1 Multiple births 0 Hx # Pregnancies 0 Ectopic pregnancies 0 AB induced 1 Hx Number of Living Children 1 AB spontaneous 0 Past Pregnancies Del. Date GA/Weeks # Preg Succ Route Wgt Sex Labor Lgth Anesthesia Location Prov Complic 05/01/21 39 No 3855.535 g Male regional DO Jennifer/CHIKIS Mast Delivery Date: 05/01/21 Last Updated by: PURNIMA Abbott; Failed induction; prolonged rupture of membranes, Noted 3 cm posterior pedunculated fibroid; Apgars 8/9 Exam Const General: cooperative and no acute distress HENMT Mouth: moist mucous membranes Eyes Conjunctivae: normal conjunctivae Sclera: normal sclerae Neck Neck: trachea midline and supple Resp Auscultation: clear to auscultation bilaterally, no rales, no rhonchi and no wheezes Cardio Rate: regular rate and not tachycardic Rhythm: regular rhythm GI Palpation: soft, not firm, no guarding, no masses, not rigid and tender in the RLQ Skin General skin exam: no rashes or lesions noted Neuro General: patient alert, patient awake and tone normal Extrem General: no edema Psych Appearance: grossly normal Mental Status: mental status grossly normal Course Vital Signs Vital signs: Vital Signs Temperature 37.0 C 01/31/22 17:45 Pulse 101 H 01/31/22 17:45 Respiratory Rate 16 01/31/22 17:45 Blood Pressure 116/102 H 01/31/22 17:45 Pulse Oximetry 99 01/31/22 17:45 Temperature 37.8 C H 01/31/22 18:56 Temperature Source Tympanic 01/31/22 18:56 Pulse 99 H 01/31/22 18:56 Respiratory Rate 18 01/31/22 18:56 Respiratory Effort 01/31/22 17:51 Blood Pressure 109/54 L 01/31/22 18:56 Blood Pressure Position Supine 01/31/22 17:45 Pulse Oximetry 99 01/31/22 18:56 Oxygen Delivery Method Room Air 01/31/22 18:56 Oxygen Flow Rate 0 01/31/22 18:56 Pain Level 7 01/31/22 17:54 Lab/Test Results Lab/Test Results: Laboratory Tests Range/Units 01/31/22 01/31/22 01/31/22 18:07 18:07 18:07 WBC (4.4-10.8) 10^3/uL 8.19 RBC (3.93-5.22) 10^6/uL 4.82 Hgb (11.2-15.7) g/dL 14.7 Hct (36.0-46.0) % 41.3 MCV (80-95) fL 86 MCH (27.0-33.0) pg 30.5 MCHC (32.0-36.0) % 35.6 RDW (11.7-14.6) % 11.9 Plt Count (130-400) 10^3/uL 190 MPV (8.0-11.0) fL 11.1 H Immature Gran % 0.2 Neutrophils % 88.8 Lymphocytes % 6.5 Monocytes % 4.0 Eosinophils % 0.1 Basophils % 0.4 Nucleated RBC % (0.0-0.3) % 0.0 Absolute Neutrophils (1.2-6.7) 10^3/uL 7.27 H Absolute Lymphocytes (1.2-3.4) 10^3/uL 0.53 L Absolute Monocytes (0.1-0.8) 10^3/uL 0.33 Absolute Eosinophils (0.0-0.7) 10^3/uL 0.01 Absolute Basophils (0.0-0.2) 10^3/uL 0.03 VBG Lactate (0.6-1.4) mmol/L 0.9 Sodium (136-145) mmol/L 134 L Potassium (3.5-5.1) mmol/L 3.7 Chloride (98-107) mmol/L 100 Carbon Dioxide (21.0-32.0) mmol/L 26.2 Anion Gap (3-11) mmol/L 7.8 BUN (7-18) mg/dL 8 Creatinine (0.55-1.02) mg/dL 0.9 Est GFR (CKD-EPI 2020) (mL/min/1.73m2) 85.50 Glucose (74-106) mg/dL 106 Calcium (8.5-10.1) mg/dL 9.1 Total Bilirubin (0.2-1.0) mg/dL 1.1 H AST (15-37) U/L 19 ALT (14-59) U/L 23 Alkaline Phosphatase (46-116) U/L 86 Total Protein (6.4-8.2) g/dL 8.0 Albumin (3.4-5.0) g/dL 4.4 Lipase (73-393) U/L 59 Urine Color (Yellow) Urine Clarity (Clear) Urine pH (5-8) Ur Specific [place] (1.005-1.025) Urine Protein (Negative) mg/dL Urine Ketones (Negative) mg/dL Urine Blood (Negative) Urine Nitrite (Negative) Urine Bilirubin (Negative) Urine Urobilinogen (Up TO 0.2) EU/dL Ur Leukocyte Esterase (Negative) Urine RBC (0-2) HPF Urine WBC (0-5) HPF Ur Epithelial Cells (Negative) HPF Urine Crystals (Negative) HPF Urine Bacteria (Negative) HPF Urine Casts (Negative) LPF Urine Mucus (Negative) Ur Culture Indicated? Urine Glucose (Negative) mg/dL Range/Units 01/31/22 18:15 WBC (4.4-10.8) 10^3/uL RBC (3.93-5.22) 10^6/uL Hgb (11.2-15.7) g/dL Hct (36.0-46.0) % MCV (80-95) fL MCH (27.0-33.0) pg MCHC (32.0-36.0) % RDW (11.7-14.6) % Plt Count (130-400) 10^3/uL MPV (8.0-11.0) fL Immature Gran % Neutrophils % Lymphocytes % Monocytes % Eosinophils % Basophils % Nucleated RBC % (0.0-0.3) % Absolute Neutrophils (1.2-6.7) 10^3/uL Absolute Lymphocytes (1.2-3.4) 10^3/uL Absolute Monocytes (0.1-0.8) 10^3/uL Absolute Eosinophils (0.0-0.7) 10^3/uL Absolute Basophils (0.0-0.2) 10^3/uL VBG Lactate (0.6-1.4) mmol/L Sodium (136-145) mmol/L Potassium (3.5-5.1) mmol/L Chloride (98-107) mmol/L Carbon Dioxide (21.0-32.0) mmol/L Anion Gap (3-11) mmol/L BUN (7-18) mg/dL Creatinine (0.55-1.02) mg/dL Est GFR (CKD-EPI 2021) (mL/min/1.73m2) Glucose (74-106) mg/dL Calcium (8.5-10.1) mg/dL Total Bilirubin (0.2-1.0) mg/dL AST (15-37) U/L ALT (14-59) U/L Alkaline Phosphatase (46-116) U/L Total Protein (6.4-8.2) g/dL Albumin (3.4-5.0) g/dL Lipase (73-393) U/L Urine Color (Yellow) Yellow Urine Clarity (Clear) Sl Cloudy Urine pH (5-8) 6.5 Ur Specific [place] (1.005-1.025) 1.015 Urine Protein (Negative) mg/dL Negative Urine Ketones (Negative) mg/dL Negative Urine Blood (Negative) Small H Urine Nitrite (Negative) Negative Urine Bilirubin (Negative) Negative Urine Urobilinogen (Up TO 0.2) EU/dL 0.2 Ur Leukocyte Esterase (Negative) Negative Urine RBC (0-2) HPF 3-5 H Urine WBC (0-5) HPF Negative Ur Epithelial Cells (Negative) HPF Rare Urine Crystals (Negative) HPF Negative Urine Bacteria (Negative) HPF Rare Urine Casts (Negative) LPF Negative Urine Mucus (Negative) Negative Ur Culture Indicated? No Urine Glucose (Negative) mg/dL Negative POC- Test(urine) Negative
--- NOTE | 2022-01-31 19:23 | W.PM.PROGNOT ---
Date of Service Date of service: 01/31/22 Time of Service: 19:24 Assessment and Plan Assessment and plan (1) Breast feeding status of mother: Status: Acute (2) RLQ abdominal pain: Status: Acute Assessment and plan: Patient presented to the emergency room with right lower quadrant pain and fever. Her white count was normal but she does have a left shift. CT is suggestive of early appendicitis. We will admit her overnight for and supportive care/hydration and observation. We will repeat labs in AM. If there is any indication of pending appendicitis, then we will plan appendectomy in a.m. Hold antibiotics at this time Objective Last Vital Signs Temp 37.8 C H 01/31/22 18:56 Pulse 99 H 01/31/22 18:56 Resp 18 01/31/22 18:56 BP 109/54 L 01/31/22 18:56 Pulse Ox 99 01/31/22 18:56 Laboratory Results - last 24 hr 01/31/22 01/31/22 01/31/22 18:07 18:07 18:07 WBC 8.19 RBC 4.82 Hgb 14.7 Hct 41.3 MCV 86 MCH 30.5 MCHC 35.6 RDW 11.9 Plt Count 190 MPV 11.1 H Immature Gran % 0.2 Neutrophils % 88.8 Lymphocytes % 6.5 Monocytes % 4.0 Eosinophils % 0.1 Basophils % 0.4 Nucleated RBC % 0.0 Absolute Neutrophils 7.27 H Absolute Lymphocytes 0.53 L Absolute Monocytes 0.33 Absolute Eosinophils 0.01 Absolute Basophils 0.03 VBG Lactate 0.9 Sodium 134 L Potassium 3.7 Chloride 100 Carbon Dioxide 26.2 Anion Gap 7.8 BUN 8 Creatinine 0.9 Est GFR (CKD-EPI 2020) 85.50 Glucose 106 Calcium 9.1 Total Bilirubin 1.1 H AST 19 ALT 23 Alkaline Phosphatase 86 Total Protein 8.0 Albumin 4.4 Lipase 59 Urine Color Urine Clarity Urine pH Ur Specific [place] Urine Protein Urine Ketones Urine Blood Urine Nitrite Urine Bilirubin Urine Urobilinogen Ur Leukocyte Esterase Urine RBC Urine WBC Ur Epithelial Cells Urine Crystals Urine Bacteria Urine Casts Urine Mucus Ur Culture Indicated? Urine Glucose 01/31/22 18:15 WBC RBC Hgb Hct MCV MCH MCHC RDW Plt Count MPV Immature Gran % Neutrophils % Lymphocytes % Monocytes % Eosinophils % Basophils % Nucleated RBC % Absolute Neutrophils Absolute Lymphocytes Absolute Monocytes Absolute Eosinophils Absolute Basophils VBG Lactate Sodium Potassium Chloride Carbon Dioxide Anion Gap BUN Creatinine Est GFR (CKD-EPI 2020) Glucose Calcium Total Bilirubin AST ALT Alkaline Phosphatase Total Protein Albumin Lipase Urine Color Yellow Urine Clarity Sl Cloudy Urine pH 6.5 Ur Specific [place] 1.015 Urine Protein Negative Urine Ketones Negative Urine Blood Small H Urine Nitrite Negative Urine Bilirubin Negative Urine Urobilinogen 0.2 Ur Leukocyte Esterase Negative Urine RBC 3-5 H Urine WBC Negative Ur Epithelial Cells Rare Urine Crystals Negative Urine Bacteria Rare Urine Casts Negative Urine Mucus Negative Ur Culture Indicated? No Urine Glucose Negative
[2022-01-31] MEDS: Lactated Ringers 500 ML 1000 ML IV (19:33)
[2022-01-31 19:34] LABS: Source Nasal/Nares
[2022-01-31 19:43] LABS: C-Reactive Protein 2.16 mg/dL (0.0-0.3)
[2022-01-31 20:04] LABS: COVID-19 PCR Negative (Negative)
[2022-01-31 20:31] VITALS: BP 122/66; PULSE 87; RESP 16; TEMP 37; O2SAT 96
[2022-01-31] MEDS: Lactated Ringers 1,000 ML 125 ML IV (21:05)
[2022-01-31 23:04] VITALS: BP 116/72; PULSE 78; RESP 18; TEMP 37.3; O2SAT 98
[2022-02-01 03:50] VITALS: BP 110/72; PULSE 89; RESP 18; TEMP 38.2; O2SAT 96
[2022-02-01] MEDS: ACETAMINOPHEN 1,000 MG/100 ML BTL 400 MG IVPB (03:58)
[2022-02-01] MEDS: Lactated Ringers 1,000 ML 125 ML IV (06:41)
[2022-02-01 07:26] LABS: Abs Immature Grans 0.01 10^3/uL (0.0-0.06); Absolute Basophil Count 0.01 10^3/uL (0.0-0.2); Absolute Eosinophil Count 0.02 10^3/uL (0.0-0.7); Absolute Lymphocyte Count 0.57 10^3/uL (1.2-3.4); Absolute Monocyte Count 0.35 10^3/uL (0.1-0.8); Absolute Neutrophil Count 2.26 10^3/uL (1.2-6.7); Basophils % 0.3; Eosinophils % 0.6; HCT 38.7 % (36.0-46.0); HGB 13.8 g/dL (11.2-15.7); Immature Grans % 0.3; Lymphocytes % 17.7; MCH 31.1 pg (27.0-33.0); MCHC 35.7 % (32.0-36.0); MCV 87 fL (80-95); MPV 11.8 fL (8.0-11.0); Monocytes % 10.9; Neutrophils % 70.2; Platelet Count 197 10^3/uL (130-400); RBC 4.44 10^6/uL (3.93-5.22); RDW-SD 38.4 fL; WBC 3.22 10^3/uL (4.4-10.8)
[2022-02-01 08:00] VITALS: BP 118/77; PULSE 72; RESP 17; TEMP 36.4; O2SAT 99
--- NOTE | 2022-02-01 09:59 | SCONE_ITS ---
Date of service: 02/01/22 Time of Service: 09:59 Assessment and Plan Assessment and plan (1) RLQ abdominal pain: Status: Acute Assessment and plan: She has no fever or white count this AM. She is hungry and would like to eat. We will try clear liquids and have her up walking and see how she feels later on this afternoon. If she still feeling good she can go home. If she starts to have pain or nausea, then we will do a lap appendectomy. She has not had any abdominal surgery in the past. She has had no problems with anesthesia. She does not smoke. History of Present Illness Narrative: Patient presented to the ER last night complaining of right lower quadrant abdominal pain and fever. She had a CT scan which was suggestive of an early appendicitis. Her white count was normal but her left shift was elevated. She has never had pains like this before. Today her white count is actually low. She states her pain is much better today. She has actually been up walking. She says she is hungry. She had a fever of 100.7 at 4 PM. She is afebrile this morning. She denies any nausea. She has mild pain in the right lower quadrant with no rebound or guarding. She has no Rovsing. Review of Systems All systems reviewed & are unremarkable except as noted in HPI and below PFSH All Active Problems (Updated 01/31/22 @ 19:24 by Marycruz Recinos DO) RLQ abdominal pain (Acute) Breast pain (Acute) Breast feeding status of mother (Acute) Yeast dermatitis (Acute) Anxiety (Chronic) Closed trimalleolar fracture of left ankle (Acute) ORIF: 04/08/18 Location: [place], [place] Family history of genetic disorder (Acute) Change in skin mole (Acute) Medical History Alcohol abuse Back pain affecting in second trimester Failed induction of labor, antepartum Gestational hypertension, third trimester IUD migration Rh negative state in antepartum period Surgical History History of ankle surgery Status post primary low transverse section Family History Maternal Cousin Potter syndrome x 2 pregnancies - Mat cousins children x 2 Other abnormal clinical finding Maternal cousin with a disorder of muscle fibers, unable to walk or speak Maternal Cousin Muscular dystrophy Mother Thyroid disease Sister Thyroid disease Sister Thyroid disease graves Maternal Aunt Bipolar 1 disorder Sister Depression Social History Smoking/Tobacco Use Status: Former Tobacco Use Smoking risk assessment performed?: Yes Alcohol Intake: former Drug use: Never Substance use type: does not use Do you feel safe at home: Yes Do you feel safe in your relationship?: Yes History History 2 Para 1 Hx # Term Pregnancies 1 Multiple births 0 Hx # Pregnancies 0 Ectopic pregnancies 0 AB induced 1 Hx Number of Living Children 1 AB spontaneous 0 Past Pregnancies Del. Date GA/Weeks # Preg Succ Route Wgt Sex Labor Lgth Anesth esia Location Prov Complic 05/01/21 39 No 3855.535 g Male regional DO Jennifer/CHIKIS Mast Delivery Date: 05/01/21 Last Updated by: PURNIMA Abbott; Failed induction; prolonged rupture of membranes, Noted 3 cm posterior pedunculated fibroid; Apgars 8/9 Exam Narrative Exam Narrative: Heart: Regular rhythm Lungs: Clear to auscultation HEENT: No jaundice no thrush dentition is intact Abdomen: Normal bowel sounds. Minimal pain in the right lower quadrant. No rebound or guarding. Lower extremities show no clubbing cyanosis or edema Results Last Vital Signs Temp 36.4 C L 02/01/22 08:00 Pulse 72 02/01/22 08:00 Resp 17 02/01/22 08:00 BP 118/77 02/01/22 08:00 Pulse Ox 99 02/01/22 08:00 Labs Result diagrams: 02/01/22 06:20 01/31/22 18:07 Labs: Laboratory Results - last 24 hr 01/31/22 01/31/22 01/31/22 18:07 18:07 18:07 WBC 8.19 RBC 4.82 Hgb 14.7 Hct 41.3 MCV 86 MCH 30.5 MCHC 35.6 RDW 11.9 Plt Count 190 MPV 11.1 H Immature Gran % 0.2 Neutrophils % 88.8 Lymphocytes % 6.5 Monocytes % 4.0 Eosinophils % 0.1 Basophils % 0.4 Nucleated RBC % 0.0 Absolute Neutrophils 7.27 H Absolute Lymphocytes 0.53 L Absolute Monocytes 0.33 Absolute Eosinophils 0.01 Absolute Basophils 0.03 VBG Lactate 0.9 Sodium 134 L Potassium 3.7 Chloride 100 Carbon Dioxide 26.2 Anion Gap 7.8 BUN 8 Creatinine 0.9 Est GFR (CKD-EPI 2020) 85.50 Glucose 106 Calcium 9.1 Total Bilirubin 1.1 H AST 19 ALT 23 Alkaline Phosphatase 86 C-Reactive Protein Total Protein 8.0 Albumin 4.4 Lipase 59 Urine Color Urine Clarity Urine pH Ur Specific [place] Urine Protein Urine Ketones Urine Blood Urine Nitrite Urine Bilirubin Urine Urobilinogen Ur Leukocyte Esterase Urine RBC Urine WBC Ur Epithelial Cells Urine Crystals Urine Bacteria Urine Casts Urine Mucus Ur Culture Indicated? Urine Glucose COVID-19 Source SARS-CoV-2 (PCR) 01/31/22 01/31/22 01/31/22 18:07 18:15 19:30 WBC RBC Hgb Hct MCV MCH MCHC RDW Plt Count MPV Immature Gran % Neutrophils % Lymphocytes % Monocytes % Eosinophils % Basophils % Nucleated RBC % Absolute Neutrophils Absolute Lymphocytes Absolute Monocytes Absolute Eosinophils Absolute Basophils VBG Lactate Sodium Potassium Chloride Carbon Dioxide Anion Gap BUN Creatinine Est GFR (CKD-EPI 2020) Glucose Calcium Total Bilirubin AST ALT Alkaline Phosphatase C-Reactive Protein 2.16 H Total Protein Albumin Lipase Urine Color Yellow Urine Clarity Sl Cloudy Urine pH 6.5 Ur Specific [place] 1.015 Urine Protein Negative Urine Ketones Negative Urine Blood Small H Urine Nitrite Negative Urine Bilirubin Negative Urine Urobilinogen 0.2 Ur Leukocyte Esterase Negative Urine RBC 3-5 H Urine WBC Negative Ur Epithelial Cells Rare Urine Crystals Negative Urine Bacteria Rare Urine Casts Negative Urine Mucus Negative Ur Culture Indicated? No Urine Glucose Negative COVID-19 Source Nasal/Nares SARS-CoV-2 (PCR) Negative 02/01/22 06:20 WBC 3.22 L RBC 4.44 Hgb 13.8 Hct 38.7 MCV 87 MCH 31.1 MCHC 35.7 RDW 12.0 Plt Count 197 MPV 11.8 H Immature Gran % 0.3 Neutrophils % 70.2 Lymphocytes % 17.7 Monocytes % 10.9 Eosinophils % 0.6 Basophils % 0.3 Nucleated RBC % 0.0 Absolute Neutrophils 2.26 Absolute Lymphocytes 0.57 L Absolute Monocytes 0.35 Absolute Eosinophils 0.02 Absolute Basophils 0.01 VBG Lactate Sodium Potassium Chloride Carbon Dioxide Anion Gap BUN Creatinine Est GFR (CKD-EPI 2020) Glucose Calcium Total Bilirubin AST ALT Alkaline Phosphatase C-Reactive Protein Total Protein Albumin Lipase Urine Color Urine Clarity Urine pH Ur Specific [place] Urine Protein Urine Ketones Urine Blood Urine Nitrite Urine Bilirubin Urine Urobilinogen Ur Leukocyte Esterase Urine RBC Urine WBC Ur Epithelial Cells Urine Crystals Urine Bacteria Urine Casts Urine Mucus Ur Culture Indicated? Urine Glucose COVID-19 Source SARS-CoV-2 (PCR)
--- NOTE | 2022-02-01 10:10 | INITIAL_ITS ---
- If Service Date Differs Date of service: 02/01/22 Time of Service: 10:10 Care Management Initial Assess REASON FOR HOSPITALIZATION:: RLQ pain PAST MEDICAL HISTORY/PAST SURGICAL HISTORY:: All Active Problems (Updated 01/31/22 @ 19:24 by Marycruz Recinos DO). RLQ abdominal pain (Acute). Breast pain (Acute). Breast feeding status of mother (Acute). Yeast dermatitis (Acute). Anxiety (Chronic). Closed trimalleolar fracture of left ankle (Acute). ORIF: 04/08/18. Location: [place], [place]. Family history of genetic disorder (Acute). Change in skin mole (Acute). Medical History . Alcohol abuse. Back pain affecting in second trimester. Failed induction of labor, antepartum. Gestational hypertension, third trimester. IUD migration. . Rh negative state in antepartum period. Surgical History . History of ankle surgery. Status post primary low transverse section PREVIOUS FUNCTIONAL STATUS/SOCIAL/FAMILY SUPPORTS:: Sierra lives in [facility] [place] [facility] with her logistics operations manager Samm. She has a 10 month old son Ramón. 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 She is independent at baseline and does not receive any community services. CURRENT FUNCTIONAL STATUS:: Sierra was sitting up in bed visiting with her partner Samm when CM met with her. She was pleasant in demeanor and engaged easily with CM. Sierra stated that she is feeling much better today and has been able to tolerate a diet with out pain. She informed that she hopes to be able to discharge later today. ADVANCE DIRECTIVES:: none on file Has patient been provided with info about the portal/API?: Yes Did the patient sign up for the portal?: Yes (prevviously) CODE STATUS:: Full Code INSURANCE COVERAGE / FINANCIAL ISSUES:: [facility] CURRENT HOME/COMMUNITY SERVICES/EQUIPMENT:: none PRIMARY CARE PHYSICIAN:: Dina Maciel POTENTIAL DISCHARGE NEEDS:: follow up with Community providers and plan of care PATIENT/FAMILY EDUCATION NEEDS:: Review of discharge instructions, activity, diet, limitations, follow up plan, Ask Me Three TRANSPORTATION:: via private vehicle with family PLAN:: Sierra will likely return home with no new services when medically cleared by provider. She will follow up with her community providers and plan of care and transport with family. CM will continue to offer support to Sierra and assess for ongoing discharge needs.
[2022-02-01 13:21] VITALS: TEMP 37.2
--- NOTE | 2022-02-01 13:40 | PGE_ITS ---
Date of Service Date of service: 02/01/22 Time of Service: 13:40 Assessment and Plan Assessment and plan (1) RLQ abdominal pain: Status: Acute Assessment and plan: At this point I think it is more of a viral gastroenteritis. She does still have a little bit of tenderness over the appendix. So I think IM given going to go ahead and treat her with a course of Augmentin. If it is an early appendicitis that should take care of it. I did discuss with her that most likely is viral but if she does start having severe right lower quadrant pain, vomiting, fevers to return to the ER. Patient is comfortable with this plan. She would rather not have surgery. She is feeling significantly better. She is not breast-feeding at this time. She is given instructions in diet, warning signs, activity and antibiotic use. She will take a probiotic. She will follow-up with me in clinic next week. Subjective Subjective Interval history since last seen: Patient has been up walking around. She is tolerating a clear liquid diet. She has had no nausea and vomiting. She is not running any fevers. She has had no diarrhea. She has minimal tenderness that is over the apparent area of the appendix in the right lower quadrant, at Rovsing's point. But is significantly improved from last night. Interestingly her made a beef stew and that night shortly afterwards both of them had some nausea and GI discomfort. Objective Last Vital Signs Temp 37.2 C 02/01/22 13:21 Pulse 72 02/01/22 08:00 Resp 17 02/01/22 08:00 BP 118/77 02/01/22 08:00 Pulse Ox 99 02/01/22 08:00 Laboratory Results - last 24 hr 01/31/22 01/31/22 01/31/22 18:07 18:07 18:07 WBC 8.19 RBC 4.82 Hgb 14.7 Hct 41.3 MCV 86 MCH 30.5 MCHC 35.6 RDW 11.9 Plt Count 190 MPV 11.1 H Immature Gran % 0.2 Neutrophils % 88.8 Lymphocytes % 6.5 Monocytes % 4.0 Eosinophils % 0.1 Basophils % 0.4 Nucleated RBC % 0.0 Absolute Neutrophils 7.27 H Absolute Lymphocytes 0.53 L Absolute Monocytes 0.33 Absolute Eosinophils 0.01 Absolute Basophils 0.03 VBG Lactate 0.9 Sodium 134 L Potassium 3.7 Chloride 100 Carbon Dioxide 26.2 Anion Gap 7.8 BUN 8 Creatinine 0.9 Est GFR (CKD-EPI 2020) 85.50 Glucose 106 Calcium 9.1 Total Bilirubin 1.1 H AST 19 ALT 23 Alkaline Phosphatase 86 C-Reactive Protein Total Protein 8.0 Albumin 4.4 Lipase 59 Urine Color Urine Clarity Urine pH Ur Specific [place] Urine Protein Urine Ketones Urine Blood Urine Nitrite Urine Bilirubin Urine Urobilinogen Ur Leukocyte Esterase Urine RBC Urine WBC Ur Epithelial Cells Urine Crystals Urine Bacteria Urine Casts Urine Mucus Ur Culture Indicated? Urine Glucose COVID-19 Source SARS-CoV-2 (PCR) 01/31/22 01/31/22 01/31/22 18:07 18:15 19:30 WBC RBC Hgb Hct MCV MCH MCHC RDW Plt Count MPV Immature Gran % Neutrophils % Lymphocytes % Monocytes % Eosinophils % Basophils % Nucleated RBC % Absolute Neutrophils Absolute Lymphocytes Absolute Monocytes Absolute Eosinophils Absolute Basophils VBG Lactate Sodium Potassium Chloride Carbon Dioxide Anion Gap BUN Creatinine Est GFR (CKD-EPI 2020) Glucose Calcium Total Bilirubin AST ALT Alkaline Phosphatase C-Reactive Protein 2.16 H Total Protein Albumin Lipase Urine Color Yellow Urine Clarity Sl Cloudy Urine pH 6.5 Ur Specific [place] 1.015 Urine Protein Negative Urine Ketones Negative Urine Blood Small H Urine Nitrite Negative Urine Bilirubin Negative Urine Urobilinogen 0.2 Ur Leukocyte Esterase Negative Urine RBC 3-5 H Urine WBC Negative Ur Epithelial Cells Rare Urine Crystals Negative Urine Bacteria Rare Urine Casts Negative Urine Mucus Negative Ur Culture Indicated? No Urine Glucose Negative COVID-19 Source Nasal/Nares SARS-CoV-2 (PCR) Negative 02/01/22 06:20 WBC 3.22 L RBC 4.44 Hgb 13.8 Hct 38.7 MCV 87 MCH 31.1 MCHC 35.7 RDW 12.0 Plt Count 197 MPV 11.8 H Immature Gran % 0.3 Neutrophils % 70.2 Lymphocytes % 17.7 Monocytes % 10.9 Eosinophils % 0.6 Basophils % 0.3 Nucleated RBC % 0.0 Absolute Neutrophils 2.26 Absolute Lymphocytes 0.57 L Absolute Monocytes 0.35 Absolute Eosinophils 0.02 Absolute Basophils 0.01 VBG Lactate Sodium Potassium Chloride Carbon Dioxide Anion Gap BUN Creatinine Est GFR (CKD-EPI 2020) Glucose Calcium Total Bilirubin AST ALT Alkaline Phosphatase C-Reactive Protein Total Protein Albumin Lipase Urine Color Urine Clarity Urine pH Ur Specific [place] Urine Protein Urine Ketones Urine Blood Urine Nitrite Urine Bilirubin Urine Urobilinogen Ur Leukocyte Esterase Urine RBC Urine WBC Ur Epithelial Cells Urine Crystals Urine Bacteria Urine Casts Urine Mucus Ur Culture Indicated? Urine Glucose COVID-19 Source SARS-CoV-2 (PCR)
--- NOTE | 2022-02-01 13:40 | DSE_ITS ---
Date of service: 02/01/22 Time of Service: 13:41 DS: Diagnosis Discharge Diagnosis (1) RLQ abdominal pain: Status: Acute Discharge Plan Disposition Patient Disposition: HOME Condition: Improving Discharge Details Reason For Visit: RLQ abdominal pain Admit Date/Time: 01/31/22 19:18 Admit Provider: Marycruz Recinos Attending Provider: Marycruz Recinos Primary Care Provider: [facility] Hospital Course Hospital Course: see [facility] Home Meds and New Rx's Prescriptions: New Bio-K plus 50 billion cell capsule,delayed release(DR/EC) 1 cap PO DAILY Qty: 30 0RF amoxicillin-pot clavulanate 875-125 mg tablet 1 tab PO BID 7 Days Qty: 13 0RF Rx Instructions: take 2nd dose at bedtime 02/01. Yogurt daily while on antibiotics Continued ParaGard T 380A 380 square mm intrauterine device 1 device intrauterine ONCE Rx Instructions: as a single dose sertraline 25 mg tablet 25 mg PO DAILY Qty: 60 2RF prenat.vits,shaheed,erm-ujbd-wodpx Tablet 1 tab PO DAILY Discharge Instructions Additional Instructions: -No driving x24 hrs -Follow-up with Dr. Recinos 02/07 9:15 -soft /bland diet for 24 hrs -no straining to move bowels - if you do not move your bowels daily take a dose of OTC milk of magnesia or Miralax -It is ok to shower/bathe as you normally do. - You may find that your appetite is smaller. Eat 3-6 small meals throughout the day. It is important to drink lots of water after being in the hospital, 6-10 glasses a day. -We do want you up walking, at least 5-6 times per day. This is very important to prevent pneumonia and blood clots. -No strenuous activity for 24-48 hrs -You may find that you are very tired after being in the hospital- this is normal. -Augmentin twice a day for 7 days. Yogurt OR pro-biotic daily while on antibiotics If ANY fevers/increase in abdominal pain/vomiting, please return to the ER. Stand Alone Forms: Nursing Discharge Form Activity:: see above Activity:: see above Equipment/Supplies:: No Equipment Needed Diet:: soft/bland DS: Summary Time Spent with Patient providing and/or coordinating discharge services: Less than 30 minutes Status at Discharge Functional status at discharge: independent ambulation Overall status at discharge: patient is progressing back to baseline Mental Status: mental status grossly normal Speech and Movement: speech and movement normal Mood: congruent mood Affect: normal affect Exam Psych Mental Status: mental status grossly normal Speech and Movement: speech and movement normal Mood: congruent mood Affect: normal affect DS: Data Vitals/I&O Vitals and I&O: Vital Signs Temperature 37.2 C 02/01/22 13:21 Temperature Source Temporal Artery Scan 02/01/22 13:21 Pulse 72 02/01/22 08:00 Pulse Rhythm Regular 02/01/22 10:10 Respiratory Rate 17 02/01/22 08:00 Respiratory Effort 02/01/22 10:10 Respiratory Depth Normal 02/01/22 10:10 Respiratory Pattern Normal 02/01/22 10:10 Blood Pressure 118/77 02/01/22 08:00 Blood Pressure Position Supine 01/31/22 17:45 Pulse Oximetry 99 02/01/22 08:00 Oxygen Delivery Method Room Air 02/01/22 08:00 Oxygen Flow Rate 0 02/01/22 08:00 Pain Level 7 02/01/22 03:58 Intake & Output 01/31/22 02/01/22 02/01/22 23:59 11:59 23:59 Intake Total 1050 / 1050 1100 / 1100 Output Total 1400 / 1400 Balance 1050 / 1050 -300 / -300 Weight 90.718 kg Intake: IV 1050 / 1050 1100 / 1100 Output: Urine 1400 / 1400 Other: Urine Color Yellow Urine Appearance Clear Clear Urine Odor None Voiding Methods Toilet Data Completed and Pending Labs on day of discharge: Labs from last 24 hours 02/01/22 01/31/22 01/31/22 06:20 19:30 18:15 WBC 3.22 L RBC 4.44 Hgb 13.8 Hct 38.7 MCV 87 MCH 31.1 MCHC 35.7 RDW 12.0 Plt Count 197 MPV 11.8 H Immature Gran % 0.3 Neutrophils % 70.2 Lymphocytes % 17.7 Monocytes % 10.9 Eosinophils % 0.6 Basophils % 0.3 Nucleated RBC % 0.0 Absolute Neutrophils 2.26 Absolute Lymphocytes 0.57 L Absolute Monocytes 0.35 Absolute Eosinophils 0.02 Absolute Basophils 0.01 VBG Lactate Sodium Potassium Chloride Carbon Dioxide Anion Gap BUN Creatinine Est GFR (CKD-EPI 2020) Glucose Calcium Total Bilirubin AST ALT Alkaline Phosphatase C-Reactive Protein Total Protein Albumin Lipase Urine Color Yellow Urine Clarity Sl Cloudy Urine pH 6.5 Ur Specific [place] 1.015 Urine Protein Negative Urine Ketones Negative Urine Blood Small H Urine Nitrite Negative Urine Bilirubin Negative Urine Urobilinogen 0.2 Ur Leukocyte Esterase Negative Urine RBC 3-5 H Urine WBC Negative Ur Epithelial Cells Rare Urine Crystals Negative Urine Bacteria Rare Urine Casts Negative Urine Mucus Negative Ur Culture Indicated? No Urine Glucose Negative COVID-19 Source Nasal/Nares SARS-CoV-2 (PCR) Negative 01/31/22 01/31/22 01/31/22 18:07 18:07 18:07 WBC 8.19 RBC 4.82 Hgb 14.7 Hct 41.3 MCV 86 MCH 30.5 MCHC 35.6 RDW 11.9 Plt Count 190 MPV 11.1 H Immature Gran % 0.2 Neutrophils % 88.8 Lymphocytes % 6.5 Monocytes % 4.0 Eosinophils % 0.1 Basophils % 0.4 Nucleated RBC % 0.0 Absolute Neutrophils 7.27 H Absolute Lymphocytes 0.53 L Absolute Monocytes 0.33 Absolute Eosinophils 0.01 Absolute Basophils 0.03 VBG Lactate 0.9 Sodium Potassium Chloride Carbon Dioxide Anion Gap BUN Creatinine Est GFR (CKD-EPI 2020) Glucose Calcium Total Bilirubin AST ALT Alkaline Phosphatase C-Reactive Protein 2.16 H Total Protein Albumin Lipase Urine Color Urine Clarity Urine pH Ur Specific [place] Urine Protein Urine Ketones Urine Blood Urine Nitrite Urine Bilirubin Urine Urobilinogen Ur Leukocyte Esterase Urine RBC Urine WBC Ur Epithelial Cells Urine Crystals Urine Bacteria Urine Casts Urine Mucus Ur Culture Indicated? Urine Glucose COVID-19 Source SARS-CoV-2 (PCR) 01/31/22 18:07 WBC RBC Hgb Hct MCV MCH MCHC RDW Plt Count MPV Immature Gran % Neutrophils % Lymphocytes % Monocytes % Eosinophils % Basophils % Nucleated RBC % Absolute Neutrophils Absolute Lymphocytes Absolute Monocytes Absolute Eosinophils Absolute Basophils VBG Lactate Sodium 134 L Potassium 3.7 Chloride 100 Carbon Dioxide 26.2 Anion Gap 7.8 BUN 8 Creatinine 0.9 Est GFR (CKD-EPI 2020) 85.50 Glucose 106 Calcium 9.1 Total Bilirubin 1.1 H AST 19 ALT 23 Alkaline Phosphatase 86 C-Reactive Protein Total Protein 8.0 Albumin 4.4 Lipase 59 Urine Color Urine Clarity Urine pH Ur Specific [place] Urine Protein Urine Ketones Urine Blood Urine Nitrite Urine Bilirubin Urine Urobilinogen Ur Leukocyte Esterase Urine RBC Urine WBC Ur Epithelial Cells Urine Crystals Urine Bacteria Urine Casts Urine Mucus Ur Culture Indicated? Urine Glucose COVID-19 Source SARS-CoV-2 (PCR) PFSH All Active Problems (Updated 01/31/22 @ 19:24 by Marycruz Recinos DO) RLQ abdominal pain (Acute) Breast pain (Acute) Breast feeding status of mother (Acute) Yeast dermatitis (Acute) Anxiety (Chronic) Closed trimalleolar fracture of left ankle (Acute) ORIF: 04/08/18 Location: [place], [place] Family history of genetic disorder (Acute) Change in skin mole (Acute) Medical History Alcohol abuse Back pain affecting in second trimester Failed induction of labor, antepartum Gestational hypertension, third trimester IUD migration Rh negative state in antepartum period Surgical History History of ankle surgery Status post primary low transverse section Family History Maternal Cousin Potter syndrome x 2 pregnancies - Mat cousins children x 2 Other abnormal clinical finding Maternal cousin with a disorder of muscle fibers, unable to walk or speak Maternal Cousin Muscular dystrophy Mother Thyroid disease Sister Thyroid disease Sister Thyroid disease graves Maternal Aunt Bipolar 1 disorder Sister Depression Social History Smoking/Tobacco Use Status: Former Tobacco Use Smoking risk assessment performed?: Yes Alcohol Intake: former Drug use: Never Substance use type: does not use Do you feel safe at home: Yes Do you feel safe in your relationship?: Yes History History 2 Para 1 Hx # Term Pregnancies 1 Multiple births 0 Hx # Pregnancies 0 Ectopic pregnancies 0 AB induced 1 Hx Number of Living Children 1 AB spontaneous 0 Past Pregnancies Del. Date GA/Weeks # Preg Succ Route Wgt Sex Labor Lgth Anesth esia Location Prov Complic 05/01/21 39 No 3855.535 g Male regional DO Jennifer/CHIKIS Mast Delivery Date: 05/01/21 Last Updated by: PURNIMA Abbott; Failed induction; prolonged rupture of membranes, Noted 3 cm posterior pedunculated fibroid; Apgars 8/9
[2022-02-01] MEDS: PIPERACILLIN/TAZO 3.375 GM in Normal Saline 50 ML IVPB (14:50)
[2022-02-01 15:10] VITALS: BP 105/70; PULSE 61; RESP 17; TEMP 36.4; O2SAT 99
== END 2022-02-01 16:34 | disposition home or self-care (01) | DRG 392 ==
LOC: ER 19:28 → MS 20:28
PROVIDERS: Admitting Provider Surgery; Emergency Provider Student in an Organized Health Care Education/Training Program; PCP Nurse Practitioner Family; Visit Provider Surgery
DX: A08.4 Viral intestinal infection, unspecified (principal); R10.31 Right lower quadrant pain; F41.9 Anxiety disorder, unspecified; Z87.891 Personal history of nicotine dependence; F10.11 Alcohol abuse, in remission
CPT/HCPCS: 36415; 80053; 81025; 83690; 87635; 96361; 96374; 99285; 74177; 81003; 81015; 83605; 85025; 86140; J0131; J2543; J3490

== ENCOUNTER 2022-05-06 13:46 | Outpatient (REF) | payer BC, SELFPAY | END 2022-05-06 13:47 | disposition home or self-care (01) | LOC: LBN 13:46 | PROVIDERS: PCP Nurse Practitioner Family; Visit Provider Physician Assistant | DX: J02.9 Acute pharyngitis, unspecified (principal) | CPT/HCPCS: 87070 ==

== ENCOUNTER 2022-09-03 03:02 | Outpatient (CLI) | payer BC, SELFPAY ==
--- NOTE | 2022-09-03 08:00 | DI.MAMMO_ITS ---
Exam(s) US BREAST RT COMPLETE MG MAMMO DIAGNOSTIC BI EXAM: MG MAMMO DIAGNOSTIC BI AND COMPLETE RIGHT BREAST ULTRASOUND. CLINICAL HISTORY: right breast lump,n63.10, diagnostic. TECHNIQUE: BOTH CC AND MLO mammographic images both breast were obtained with 3D tomosynthesis techn ique and utilizing computer aided detection (CAD). Also performed complete right breast ultrasound (side of lump) including all 4 quadrants as well as t he retroareolar region and right axilla. COMPARISON: None. This is 1st mammogram in this 36-year-old patient FINDINGS: DIAGNOSTIC BILATERAL MAMMOGRAM: The fibroglandular tissue is moderately dense. There are no spiculated masses nor malignant-appearing microcalcification groups in either breast. There is no significant architectural distortion or skin thickening-traction. COMPLETE RIGHT BREAST ULTRASOUND: No evidence of solid or significant cystic lesions in all 4 quadrants of the right breast. No focal findings at the 4 o'clock position which is the area of her symptoms. Scanning of the right axilla is negative for adenopathy. IMPRESSION: 1. No radiographic evidence of malignancy in either breast. 2. Negative complete right breast ultrasound. Appropriate follow-up is repeat scanning in 6 months time if this patient feels that this finding is still present. Earlier imaging recommended if she feels it is increasing in size. The patient was informed of the findings and follow-up recommendations by myself prior to leaving the department today. BI-RADS Category 3 - 6 month - Probably Benign Finding: Recommend follow-up mammography in 6 months Breast Density - Category C - Heterogeneously dense Breast density Category C or D implies that the patient has dense breast tissue. Dense breast tissue can make it harder to find cancer on a mammogram. Dense breast tissue is also associated with an incr eased risk of breast cancer. This information about the result of the mammogram report was provided to the patient to raise their awareness. Use this report when you speak with the patient about their risks for breast cancer, which includes their family history. At that time, you may recommend additional screening tests (Ultrasoun d or MRI) as these tests may add significant information. A negative radiographic report should not delay biopsy if a dominant or clinically suspicious mass is present. Up to ten percent of cancers are not identified on mammography. A negative report may reinforce clinical impression. Adenosis and dense breasts may obscure an underlying neoplasm. False positive reports average 6 to 10%. Patient will receive a letter notifying them of these results.
== END 2022-09-03 03:22 ==
LOC: DI 03:02
PROVIDERS: PCP Nurse Practitioner Family; Visit Provider Obstetrics & Gynecology
DX: R92.8 Other abnormal and inconclusive findings on diagnostic imaging of breast (principal); Z12.31 Encounter for screening mammogram for malignant neoplasm of breast
CPT/HCPCS: 76642; 77062; 77066; G0279

== ENCOUNTER 2023-01-06 18:43 | Outpatient (REF) | payer BC, SELFPAY ==
[2023-01-06 22:30] LABS: Abs Immature Grans 0.02 10^3/uL (0.0-0.06); Absolute Basophil Count 0.04 10^3/uL (0.0-0.2); Absolute Eosinophil Count 0.11 10^3/uL (0.0-0.7); Absolute Lymphocyte Count 2.45 10^3/uL (1.2-3.4); Absolute Monocyte Count 0.43 10^3/uL (0.1-0.8); Absolute Neutrophil Count 5.29 10^3/uL (1.2-6.7); Basophils % 0.5; Eosinophils % 1.3; HCT 43.2 % (36.0-46.0); HGB 15.1 g/dL (11.2-15.7); Immature Grans % 0.2; Lymphocytes % 29.4; MCH 30.3 pg (27.0-33.0); MCV 87 fL (80-95); MPV 12.5 fL (8.0-11.0); Monocytes % 5.2; Neutrophils % 63.4; Platelet Count 272 10^3/uL (130-400); RBC 4.98 10^6/uL (3.93-5.22); RDW 12.2 % (11.7-14.6); RDW-SD 38.7 fL; WBC 8.34 10^3/uL (4.4-10.8)
[2023-01-06 23:17] LABS: ALT 27 U/L (14-59); AST 17 U/L (15-37); Albumin 4.3 g/dL (3.4-5.0); Alkaline Phosphatase 83 U/L (46-116); Anion Gap 10.4 mmol/L (3-11); BUN 12 mg/dL (7-18); Bilirubin, Total 0.7 mg/dL (0.2-1.0); CO2 25.6 mmol/L (21.0-32.0); CREATININE 0.7 mg/dL (0.55-1.02); Calcium 9.9 mg/dL (8.5-10.1); Chloride 100 mmol/L (98-107); Estimated GFR 114.88 (mL/min/1.73m2); Ferritin 48 ng/mL (8-252); Glucose 95 mg/dL (74-106); Magnesium 1.7 mg/dL (1.8-2.4); Potassium 3.8 mmol/L (3.5-5.1); Sodium 136 mmol/L (136-145); TSH (W/Ref FT4) 1.53 uIU/mL (0.36-3.74); Total Protein 7.6 g/dL (6.4-8.2); Vitamin B12 271 pg/mL (193-986)
[2023-01-06 23:29] LABS: Iron 97 ug/dL (50-170); Total Iron Binding Capacity 293 ug/dL (250-450); Transferrin Sat 33 % (15-50)
== END 2023-01-06 18:44 | disposition home or self-care (01) ==
LOC: NCHCN 18:43
PROVIDERS: PCP Nurse Practitioner Family; Visit Provider Nurse Practitioner Family
DX: R51.9 Headache, unspecified (principal); R47.01 Aphasia; R06.83 Snoring
CPT/HCPCS: 80053; 82607; 82728; 83540; 83550; 83735; 84443; 85025

== ENCOUNTER → 2023-03-12 02:01 | Outpatient (CLI) | payer BC, SELFPAY ==
--- NOTE | 2023-03-12 | DI.MAMMO_ITS ---
Exam(s) MAMMO DIAGNOSTIC UNI EXAM: MAMMO DIAGNOSTIC UNI - RIGHT CLINICAL HISTORY: 6 MO F/U ,LUMP RT BREAST,N63.10. TECHNIQUE: Unilateral spot mammographic images were obtained with 3D tomosynthesis technique and uti lizing computer aided detection (CAD). COMPARISON: Prior diagnostic baseline mammogram and ultrasound performed 09/03/2022 were reviewed. Patient states that she occasionally still feels the previously described finding in the right [address]. It has not increased in size. FINDINGS: The fibroglandular tissue of the right breast is again noted be moderately dense. There are no obvious spiculated masses nor malignant-appearing microcalcification groups. There is no significant architectural distortion or skin thickening-traction. IMPRESSION: No radiographic evidence of malignancy in the right breast Appropriate follow-up is keep this patient on her yearly mammogram schedule, this implying that her n ext bilateral mammogram would be in August or September 2023, with earlier imaging if clinically indicated.. The patient was informed of the findings and follow-up recommendations by myself prior to leaving the department today. BI-RADS Category 3 - 6 month - Probably Benign Finding: Recommend follow-up mammography in 6 months Breast Density - Category C - Heterogeneously dense Breast density Category C or D implies that the patient has dense breast tissue. Dense breast tissue can make it harder to find cancer on a mammogram. Dense breast tissue is also associated with an incr eased risk of breast cancer. This information about the result of the mammogram report was provided to the patient to raise their awareness. Use this report when you speak with the patient about their risks for breast cancer, which includes their family history. At that time, you may recommend additional screening tests (Ultrasoun d or MRI) as these tests may add significant information. A negative radiographic report should not delay biopsy if a dominant or clinically suspicious mass is present. Up to ten percent of cancers are not identified on mammography. A negative report may reinforce clinical impression. Adenosis and dense breasts may obscure an underlying neoplasm. False positive reports average 6 to 10%. Patient will receive a letter notifying them of these results.
== END ==
PROVIDERS: PCP Nurse Practitioner Family; Visit Provider Obstetrics & Gynecology
DX: Z12.31 Encounter for screening mammogram for malignant neoplasm of breast (principal); R92.8 Other abnormal and inconclusive findings on diagnostic imaging of breast
CPT/HCPCS: 77061; 77065; G0279

== ENCOUNTER → 2023-10-29 01:15 | Outpatient (CLI) | payer BC, SELFPAY ==
--- NOTE | 2023-10-29 | DI.MAMMO_ITS ---
Exam(s) MAMMO DIAGNOSTIC BI EXAM: MAMMO DIAGNOSTIC BI CLINICAL HISTORY: Abnormal mammogram, R92.8, 6-MO F/U. TECHNIQUE: Craniocaudal and mediolateral oblique Full Field Digital Mammography views with Computer Aided Diagnosis followed by Tomosynthesis. COMPARISON: Comparison is made with prior examinations. FINDINGS: Mammography/Tomosynthesis: Masses/Architectural Distortion: None seen. Microcalcifictions: No suspicious pleomorphic-type are seen. Skin Thickening/Nipple Retraction: None. IMPRESSION: 1. No evidence of malignancy is noted. 2. Unless there is more urgent need, follow-up screening mammography is recommended, as per [place] [employer] guidelines. 3. The findings were discussed with the patient on the date of the examination. BI-RADS Category 1 - Negative Breast Density - Category C - Heterogeneously dense Breast density Category C or D implies that the patient has dense breast tissue. Dense breast tissue can make it harder to find cancer on a mammogram. Dense breast tissue is also associated with an incr eased risk of breast cancer. This information about the result of the mammogram report was provided to the patient to raise their awareness. Use this report when you speak with the patient about their risks for breast cancer, which includes their family history. At that time, you may recommend additional screening tests (Ultrasoun d or MRI) as these tests may add significant information. A negative radiographic report should not delay biopsy if a dominant or clinically suspicious mass is present. Up to ten percent of cancers are not identified on mammography. A negative report may reinforce clinical impression. Adenosis and dense breasts may obscure an underlying neoplasm. False positive reports average 6 to 10%. Patient will receive a letter notifying them of these results.
--- OUTSIDE RECORDS SUMMARY | 2023-10-29 01:21 | XMS_ITS | Encounter Summary ---
Author Organization [facility] Address [address] [place] [address] Care Team Providers Care Friction Saw Operator Name Role Phone Unknown, Provider Primary Care Provider Encounter Details Date Type Department Care Team (Late st Contact Info) Description 12/03/[address] [facility] Pathology & Laboratory Medicine - [address] [address] Outr Resulting Lab, Provider Social History Tobacco Use Types Packs/Day Years Used Date Smoking Tobacco: Never Assessed Sex and Gender Information Value Date Recorded Sex Assigned at Not on file Gender Identity Not on file Sexual Orientation Not on file documented as of this encounter Plan of Treatment Not on file documented as of this encounter Procedures Procedure Name Priority Date/Time Associated Diagnosis Comments CHLAMYDIA/N. GONORRHOEAE AMPLIFIED NUCLEIC ACID, THINPREP Routine 12/02/2019 10:00 EDT documented in this encounter Results * CHLAMYDIA/N. GONORRHOEAE AMPLIFIED RNA, THINPREP (12/02/2019 10:00 EDT) Neisseria gonorrhoeae Result Negative Negative 12/06/2019 13:40 EDT [facility] Chlamydia trachomatis Result Negative Negative 12/06/2019 13:40 EDT [facility] Papanicolaou smear specimen (specimen) CERVIX UTERI STRUCTURE / Unknown 12/02/2019 10:00 EDT 12/04/2019 17:15 EDT Provider Outr Resulting Lab MICROBIOLOGY - GENERAL ORDERABLES [facility] [address] [place] [address] documented in this encounter Visit Diagnoses Not on filedocumented in this encounter Care Teams Friction Saw Operator Relationship Specialty Start Date End Date Unknown, Provider, PCP - General 01/05/16 documented as of this encounter
--- OUTSIDE RECORDS SUMMARY | 2023-10-29 01:21 | XMS_ITS | Clinical Summary ---
Author Organization [facility] Address [address] [place] [id number] Care Team Providers Care Loop Drier Operator Name Role Phone Unknown, Provider Primary Care Provider Social History Tobacco Use Types Packs/Day Years Used Date Smoking Tobacco: Never Assessed Sex and Gender Information Value Date Recorded Sex Assigned at Not on file Gender Identity Not on file Sexual Orientation Not on file Plan of Treatment Health Maintenance Due Date Last Done Comments Hepatitis B Vaccine (1 of 3 - 19+ 3-dose series) 2005 COVID-19 Vaccine ( season) 2022 Hepatitis C Screen Completed 10/11/2020, 12/02/2019 Procedures Procedure Name Priority Date/Time Associated Diagnosis Comments HEPATITIS C AB W REFLEX TO HCV RNA BY PCR Routine 10/11/2020 15:00 EDT from Last 3 Months or Most Recently Relevant to Health Maintenance Results * HEPATITIS C AB W REFLEX TO HCV RNA BY PCR (10/11/2020 15:00 EDT) Hep C Antibody Negative Negative 10/12/2020 10:40 EDT [facility] Blood VENOUS BLOOD / Unknown 10/11/2020 15:00 EDT 10/11/2020 20:46 EDT Provider Outr Resulting Lab CHEMISTRY & BLOOD GAS ORDERABLES [facility] [address] [place] [address] from Last 3 Months or Most Recently Relevant to Health Maintenance Care Teams Loop Drier Operator Relationship Specialty Start Date End Date Unknown, Provider, PCP - General 01/05/16
--- OUTSIDE RECORDS SUMMARY | 2023-10-29 01:21 | XMS_ITS | Encounter Summary ---
Author Organization [facility] Address [facility] [place] [address] Care Team Providers Care Cam Milling Machine Operator Name Role Phone Dina Maciel APRN Primary Care Provider [phone] Encounter Details Date Type Department Care Team (Latest Contact Info) Description 10/29/2017 12:28 PM EDT - 10/29/2017 11:59 PM EDT Hospital Encounter XRay at [address] [place] [address] Xenia Resendez MD [facility] [place] [address] Chronic midline low back pain without sciatica Discharge Disposition: Home Social History Tobacco Use Types Packs/Day Years Used Date Smoking Tobacco: Former Smokeless Tobacco: Never Sex and Gender Information Value Date Recorded Sex Assigned at Not on file Gender Identity Not on file Sexual Orientation Not on file documented as of this encounter Medications at Time of Discharge Medication Sig Dispensed Refills Start Date End Date naproxen (NAPROSYN) 500 mg Tablet Take 1 tablet by mouth 2 times daily (with meals). 60 tablet 3 10/29/2017 documented as of this encounter Plan of Treatment Not on file documented as of this encounter Procedures Procedure Name Priority Date/Time Associated Diagnosis Comments XR LUMBAR SPINE 2 OR 3 VIEWS Routine 10/29/2017 12:37 PM EDT Chronic midline low back pain without sciatica documented in this encounter Results * XR Lumbar Spine 2 Or 3 Views (Generic) (10/29/2017 12:37 PM EDT) Anatomical Region Laterality Modality L-spine N/A Digital Radiogra phy Impressions 10/29/2017 2:01 PM EDT Normal. Narrative 10/29/2017 2:01 PM EDT EXAMINATION: XR LUMBAR SPINE 2 OR 3 VIEWS (GENERIC) CLINICAL HISTORY: LBP for 8 months to one year TECHNIQUE: AP and lateral lumbar spine COMPARISON: None FINDINGS: There are 5 nonrib-bearing lumbar type vertebra in normal alignment. No fracture, subluxation or other abnormality is seen. Incidentally noted is an IUD within the expected position of the uterus. Procedure Note Antonio Winter MD - 10/29/2017 EXAMINATION: XR LUMBAR SPINE 2 OR 3 VIEWS (GENERIC) CLINICAL HISTORY: LBP for 8 months to one year TECHNIQUE: AP and lateral lumbar spine COMPARISON: None FINDINGS: There are 5 nonrib-bearing lumbar type vertebra in normal alignment. No fracture, subluxation or other abnormality is seen. Incidentally noted isan IUD within the expected position of the uterus. IMPRESSION Normal. Xenia Resendez MD IMG DX ORDERABLES documented in this encounter Visit Diagnoses Diagnosis Chronic midline low back pain without sciatica documented in this encounter Care Teams Cam Milling Machine Operator Relationship Specialty Start Date End Date Dina Maciel APRN [address] [place] [address] PCP - General Family Medicine 09/23/17 documented as of this encounter
--- OUTSIDE RECORDS SUMMARY | 2023-10-29 01:21 | XMS_ITS | Encounter Summary ---
Author Organization [facility] Address [facility] [place] [address] Care Team Providers Care Taxi Cab Driver Name Role Phone Dina Maciel APRN Primary Care Provider [phone] Encounter Details Date Type Department Care Team (Latest Contact Info) Description 11/28/2017 10:36 AM EDT - 11/28/2017 11:59 PM EDT Hospital Encounter XRay at [address] [place] [address] Xenia Resendez MD [facility] [place] [address] Chronic midline low back pain without sciatica [...] Name Priority Date/Time Associated Diagnosis Comments XR SACROILIAC JOINTS (GENERIC) Routine 11/28/2017 10:55 AM EDT Chronic midline low back pain without sciatica documented in this encounter Results * XR S-I Joints (Generic) (11/28/2017 10:55 AM EDT) Anatomical Region Laterality Modality Pelvis, Hip N/A Digital Radiogra phy Impressions 11/28/2017 11:31 AM EDT Asymmetric sclerosis about the left SI joint may be in keeping with an inflammatory process. Narrative 11/28/2017 11:31 AM EDT EXAMINATION: XR S-I JOINTS (GENERIC) CLINICAL HISTORY: lBP with personal and family h/o psoriasis TECHNIQUE: Oblique and frontal sacral iliac joints. COMPARISON: None FINDINGS: IUD projected in the mid pelvis. Visualized sacral nazanin intact. Asymmetric sclerosis about the left sacral iliac joint. No acute fracture. Procedure Note Jaqui Olivier MD - 11/28/2017 EXAMINATION: XR S-I JOINTS (GENERIC) CLINICAL HISTORY: lBP with personal and family h/o psoriasis TECHNIQUE: Oblique and frontal sacral iliac joints. COMPARISON: None FINDINGS: IUD projected in the mid pelvis. Visualized sacral nazanin intact.Asymmetric sclerosis about the left sacral iliac joint. No acute fracture. IMPRESSION Asymmetric sclerosis about the left SI joint may be in keeping with an inflammatory process. Xenia Resendez MD IMG DX ORDERABLES documented in this encounter Visit Diagnoses Diagnosis Chronic midline low back pain without sciatica documented in this encounter Care Teams Taxi Cab Driver Relationship Specialty Start Date End Date Dina aMciel APRN [address] [place] [address] PCP - General Family Medicine 09/23/17 documented as of this encounter
--- OUTSIDE RECORDS SUMMARY | 2023-10-29 01:21 | XMS_ITS | Encounter Summary ---
Author Organization [facility] Address [address] [place] [address] Care Team Providers Care Safety Consultant Name Role Phone Unknown, Provider Primary Care Provider Encounter Details Date Type Department Care Team (Late st Contact Info) Description 10/11/2020 Lab Requisition [facility] Pathology & Laboratory Medicine - [address] [address] Outr Resulting Lab, Provider Social History Tobacco [...] Procedure Name Priority Date/Time Associated Diagnosis Comments RUBELLA IGG ANTIBODY Routine 10/11/2020 15:00 EDT VARICELLA IGG ANTIBODY Routine 10/11/2020 15:00 EDT documented in this encounter Results * VARICELLA IGG ANTIBODY (10/11/2020 15:00 EDT) Varicella IgG Ab Positive See Note 10/12/2020 12:[address] [facility] Comment:Presence of detectab le Varicella Zoster virus IgG antibodies. Blood VENOUS BLOOD / Unknown 10/11/2020 15:00 EDT 10/11/2020 20:46 EDT Provider Outr Resulting Lab IMMUNOLOGY A ND SEROLOGY ORDERABLES [facility] [address] [place] [address] * RUBELLA IGG ANTIBODY (10/11/2020 15:00 EDT) Rubella IgG Ab Positive See Note 10/12/2020 11:[address] [facility] Comment:Positive for IgG ant ibodies to Rubella virus. Blood VENOUS BLOOD / Unknown 10/11/2020 15:00 EDT 10/11/2020 20:46 EDT Provider Outr Resulting Lab CHEMISTRY & BLOOD GAS ORDERABLES Performing Organization Address [facility] Co de Phone Number [facility] [address] [place] [address] documented in this encounter Visit Diagnoses Not on filedocumented in this encounter Care Teams Safety Consultant Relationship Specialty Start Date End Date Unknown, Provider, PCP - General 01/05/16 documented as of this encounter
--- OUTSIDE RECORDS SUMMARY | 2023-10-29 01:21 | XMS_ITS | Encounter Summary ---
Author Organization [facility] Address [address] [place] [address] Care Team Providers Care Register Of Wills Name Role Phone Unknown, Provider Primary Care Provider Encounter Details Date Type Department Care Team (Late st Contact Info) Description 10/11/2020 Lab Requisition [facility] Pathology & Laboratory Medicine - [address] [address] Outr Resulting Lab, Provider Social History Tobacco [...] RNA BY PCR Routine 10/11/2020 15:00 EDT HEPATITIS B SURFACE ANTIGEN Routine 10/11/2020 15:00 EDT documented in this encounter Results * HEPATITIS B SURFACE ANTIGEN (10/11/2020 15:00 EDT) Hep B Surface Ag Negative Negative 10/12/2020 10:32 EDT [facility] Blood VENOUS BLOOD / Unknown 10/11/2020 15:00 EDT 10/11/2020 20:46 EDT Provider Outr Resulting Lab CHEMISTRY & BLOOD GAS ORDERABLES [facility] [address] [place] [address] * HEPATITIS C AB W REFLEX TO HCV RNA BY PCR (10/11/2020 15:00 EDT) Hep C Antibody Negative Negative 10/12/2020 10:40 EDT [facility] Blood VENOUS BLOOD / Unknown 10/11/2020 15:00 EDT 10/11/2020 20:46 EDT Provider Outr Resulting Lab CHEMISTRY & BLOOD GAS ORDERABLES [facility] [address] [place] [address] documented in this encounter Visit Diagnoses Not on filedocumented in this encounter Care Teams Register Of Wills Relationship Specialty Start Date End Date Unknown, Provider, PCP - General 01/05/16 documented as of this encounter
--- OUTSIDE RECORDS SUMMARY | 2023-10-29 01:21 | XMS_ITS | Encounter Summary ---
Author Organization [facility] Address [address] [place] [address] Care Team Providers Care Government Operations Consultant Name Role Phone Unknown, Provider Primary Care Provider Encounter Details Date Type Department Care Team (Late st Contact Info) Description 12/02/2019 Lab Requisition [facility] Pathology & Laboratory Medicine - [address] [address] Outr Resulting Lab, Provider Social History Tobacco [...] REFLEX TO HCV RNA BY PCR Routine 12/02/2019 10:25 EDT documented in this encounter Results * HEPATITIS C AB W REFLEX TO HCV RNA BY PCR (12/02/2019 10:25 EDT) Hep C Antibody Negative Negative 12/06/2019 12:25 EDT [facility] Blood VENOUS BLOOD / Unknown 12/02/2019 10:25 EDT 12/03/2019 16:36 EDT Provider Outr Resulting Lab CHEMISTRY & BLOOD GAS ORDERABLES [facility] [address] [place] [address] documented in this encounter Visit Diagnoses Not on filedocumented in this encounter Care Teams Government Operations Consultant Relationship Specialty Start Date End Date Unknown, Provider, PCP - General 01/05/16 documented as of this encounter
--- OUTSIDE RECORDS SUMMARY | 2023-10-29 01:21 | XMS_ITS | Encounter Summary ---
Author Organization Replaced By [facility] Address [facility] [place] [address] Care Team Providers Care B2B Sales Professional Name Role Phone Dina Maciel APRN Primary Care Provider [phone] Reason for Visit * Reason Comments Skin Lesion * Consultation (Routine) - Closed Specialty Diagnoses / Procedures Referred By Contguilherme t Referred To Contact Dermatology Diagnoses Melanocytic nevi, unspecified Change in Skin Mole; New Patient-Notes Received Procedures Consult Vielka Riojas, [address] [place] [address] [facility] [address] [place] [address] Referral ID Status Reason Start Date Expiration Date Visits Re quested Visits Authorized [id number] Closed 11/09/2020 11/09/2021 1 1 Encounter Details Date Type Department Care Team (Late st Contact Info) Description 12/06/2020 4:40 PM EDT Office Visit Dermatology at [facility] [address] [place] [phone] Simin Haskins MD [facility] [address] [facility] [place] [address] Multiple benign nevi; Hemangioma, unspecified site Social History Tobacco Use Types Packs/Day Years Used Date Smoking Tobacco: Former Smokeless Tobacco: Never Comments Yes Sex and Gender Information Value Date Recorded Sex Assigned at Not on file Gender Identity Not on file Sexual Orientation Not on file documented as of this encounter Progress Notes * Simin Haskins MD - 12/06/2020 4:40 PM EDT Images from the original note were not included. DEPARTMENT OF DERMATOLOGY [facility] Provider: Simin Haskins MD Patient's preferred name Sierra Preferred contact method for results []myDH []Letter []Phone: Cell Detailed phone message OK? Yes Are there any other people with whom we may discuss your care? No PAST MEDICAL HISTORY If no, type N. If yes, type date, location, treatment Melanoma N Dysplastic nevi N SCC N BCC N AKs N Other relevant past medical history (i.e. 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 If yes, include details below Allergy to lidocaine, epinephrine, Dermabond, chlorhexidine, or adhesives: N Bleeding disorder or blood thinners: N Pacemaker, defibrillator, deep brain stimulator, cochlear implant: N History of Present Illness: Sierra Mcconnell is a 35 y.o. year old. Patient is new and self-referred to the clinic for the following: - Has noticed some moles on the back that are changing since she became regnant, they have become large and snag on things. May be some on the scalp as well. Another lesion on the arm that she does not believe is a mole - it has been present for unspecified amount of time. - Patient notes a reddish christi near her part. 0.8 cm reilly plaque right parietal scalp Right mormonism at the hairline Medications: Reviewed in eD-H Allergies: Reviewed in eD-H Skin Examination: Focused skin examination of the scalp was normal with the exception of the findings below Assessment/Plan 1. Benign Nevi (Scalp) - including 0.8 cm reilly plaque right parietal scalp x1, right mormonism at the hairline x1, right near the frontal scalp x1, left parietal scalp x1 - Discussed benign nature of lesions and provided reassurance. Will continue to monitor. 2. Benign Nevi (Back) - Scattered 0.3 - 1 cm sessile flesh colored to brown papules and plaques scattered on the back - Discussed benign nature of lesions and provided reassurance. No treatment necessary at this time. - Will continue to clinically monitor. 3. Benign Nevus - 0.1 cm flesh colored papule on the right upper arm - Discussed benign nature of lesion and provided reassurance. No treatment necessary at this time. 4. Angioma - 0.3 cm purple papule on the left medial malar cheek - Discussed benign nature of lesion and provided reassurance. No treatment necessary at this time. Other items to document in the assessment/plan if relevant ??? N/A RTC: PRN []Note routed to personal secretary []Recall has been placed in scheduling system []Appointment scheduled at checkout Scribe attestation: Ese Valiente and Rolly Yap LPN have performed the documentation for this encounter in the presence of and acting as a scribe for Simin Haskins MD I performed the above scribed service and agree with the accuracy of the documentation in this encounter. Reviewed and signed by: Simin Haskins MD Dermatology [facility] documented in this encounter Plan of Treatment Not on file documented as of this encounter Visit Diagnoses Diagnosis Multiple benign nevi Benign neoplasm of skin, site unspecified Hemangioma, unspecified site documented in this encounter Care Teams B2B Sales Professional Relationship Specialty Start Date End Date Dina Maciel, VENEER JOINTER OPERATOR [address] [place] [address] PCP - General Family Medicine 09/23/17 documented as of this encounter
--- OUTSIDE RECORDS SUMMARY | 2023-10-29 01:21 | XMS_ITS | Encounter Summary ---
Author Organization [facility] Address [address] [place] [address] Care Team Providers Care Solutions Executive Cloud Sales Name Role Phone Unknown, Provider Primary Care Provider Encounter Details Date Type Department Care Team (Late st Contact Info) Description 10/11/2020 Lab Requisition [facility] Pathology & Laboratory Medicine - [address] [address] Outr Resulting Lab, Provider Social History Tobacco [...] Procedure Name Priority Date/Time Associated Diagnosis Comments HIV 1/2 ANTIGEN AND ANTIBODY, 4TH GENERATION Routine 10/11/2020 15:00 EDT documented in this encounter Results * HIV 1/2 ANTIGEN AND ANTIBODY, 4TH GENERATION (10/11/2020 15:00 EDT) HIV 1 and 2 Antibody/p24 Antigen, 4th Generation Negative Negative 10/12/2020 10:59 EDT [facility] Comment: If acute HIV-1 infection is suspected in a high risk ??patient, submit plasma specimen for HIV-1 RNA quantitation test. Fourth Generation assay performed on the Siemens Ridangoaur. Blood VENOUS BLOOD / Unknown 10/11/2020 15:00 EDT 10/11/2020 20:46 EDT Provider Outr Resulting Lab IMMUNOLOGY A ND SEROLOGY ORDERABLES [facility] [address] [place] [address] documented in this encounter Visit Diagnoses Not on filedocumented in this encounter Care Teams Solutions Executive Cloud Sales Relationship Specialty Start Date End Date Unknown, Provider, PCP - General 01/05/16 documented as of this encounter
--- OUTSIDE RECORDS SUMMARY | 2023-10-29 01:21 | XMS_ITS | Encounter Summary ---
Author Organization [facility] Address [address] [place] [address] Care Team Providers Care Commercial Assistant Name Role Phone Unknown, Provider Primary Care Provider Reason for Visit * Reason Onset Date Comments Other 04/01/2018 triage for appt Encounter Details Date Type Department Care Team (Late st Contact Info) Description 04/01/2018 Telephone [facility] Orthopedic Surgery - [facility] Jesus Pitts [address] [place] [address] Domenic Harris MD [address] [place] [phone] Other (triage for appt) Social History Tobacco Use Types Packs/Day Years Used Date Smoking Tobacco: Never Assessed Sex and Gender Information Value Date Recorded Sex Assigned at Not on file Gender Identity Not on file Sexual Orientation Not on file documented as of this encounter Miscellaneous Notes * Telephone Encounter - Rukhsana Givens - 04/01/2018 1453 EST Notes were reviewed by Dr Harris, he has no OR trauma time left per Rachel I have flipped this referral over to [facility], Pt was called and told that [facility] would be calling her. * Telephone Encounter - Rukhsana Givens - 04/01/2018 1140 EST Sierra phoned [place] holiday mis stepped on stairs and fell on 03-30-18, went to ER at [facility] in [facility], was told she had fx'd two bones in 3 place and needed sx, spoke w/ortho there and states they told her she needs sx in 7-10 days. Pt lives in [facility] and can't get in with anyone to look at her. Please triage Notes, pt has disc but is several hours away. Hosp in [place] can't send electronically. Sierra can be reached at [phone] Referral started waiting for notes to be fx'd and reviewed. documented in this encounter Plan of Treatment Not on file documented as of this encounter Visit Diagnoses Not on filedocumented in this encounter Care Teams Commercial Assistant Relationship Specialty Start Date End Date Unknown, Provider, PCP - General 01/05/16 documented as of this encounter
--- OUTSIDE RECORDS SUMMARY | 2023-10-29 01:21 | XMS_ITS | Encounter Summary ---
Author Organization [facility] Address [address] [place] [address] Care Team Providers Care Jail Keeper Name Role Phone Unknown, Provider Primary Care Provider Encounter Details Date Type Department Care Team (Late st Contact Info) Description 01/04/2016 Results Only [facility] [phone] Bennett Agrawal, YARDER BOSS [address],[facility] [address] [place] [phone] Social History Tobacco Use Types Packs/Day Years Used Date Smoking Tobacco: Never Assessed Sex and Gender Information Value Date Recorded Sex Assigned at Not on file Gender Identity Not on file Sexual Orientation Not on file documented as of this encounter Plan of Treatment Not on file documented as of this encounter Procedures Procedure Name Priority Date/Time Associated Diagnosis Comments PAP TEST- RESULT ONLY Routine 01/04/2016 0:00 EDT documented in this encounter Results * PAP TEST- RESULT ONLY (01/04/2016 0:00 EDT) Pathology Report: CYTOPATHOLOGY REPORT Reports generated via electronic interface contain original data; however they are lacking the format of the original report. Caution should be taken when reading/interpreti ng unformatted reports. Name: ? SIERRA MCCONNELL ? Accession #: ? [id number] ? : ? 1985 (Age: 30) ??F ?Collect Date: ? 01/04/2016 ? Location: ? [facility] ? Receive Date: ? 01/08/2016 ? Provider: BENNETT AGRAWAL YARDER BOSS Copy to: ? Final Report SPECIMEN ADEQUACY ? Satisfactory for Evaluation - transformation zone component present GENERAL CATEGORIZATION ? Negative for Intraepithelial Lesion or Malignancy ?? Last Menstrual Period: 12/28/2015 Hormonal/Contracep tive status: None Previous Gynecologic Pathology: ASC-US: HX at age 19 Specimen/Source: ??Pap Test, Cervix/Endocervix, ThinPrep Imaging System with manual evaluation Document reviewed and electronically signed by: ? Martín Daly, [place](ASCP) ? Report ??Date: 01/09/2016 13:51 HPV with Pap Test ? Date Ordered: ? 01/09/2016 ? Status: ?? Signed Out ?Date Complete: ? 01/11/2016 ? By: ??System Interface ? Date Reported: ? 01/11/2016 ? Interpretation RESULT: Negative for HPV. No E6 or E7 mRNA is detected from HPV types 16,18,31,33,35, 39,45,51,52,56,58, 59,66, and [address] mediated amplification. Comments Document reviewed and electronically signed by: ? System Interface ? Report date: 01/11/2016 By the signature above, the attending physician certifies that he/she has personally conducted a gross and/or microscopic examination of the described specimens and rendered or confirmed the above diagnosis. End of Report [facility] 01/04/2016 01/08/2016 Bennett Agrawal YARDER BOSS PATHOLOGY ORDERAB LES [facility] [address] [place] [address] documented in this encounter Visit Diagnoses Not on filedocumented in this encounter Care Teams Jail Keeper Relationship Specialty Start Date End Date Unknown, Provider, PCP - General 01/05/16 documented as of this encounter
--- OUTSIDE RECORDS SUMMARY | 2023-10-29 01:21 | XMS_ITS | Encounter Summary ---
Author Organization [facility] Address [address] [place] [address] Care Team Providers Care Mixer Operator Helper Hot Metal Name Role Phone Unknown, Provider Primary Care Provider [phone] Encounter Details Date Type Department Care Team (Late st Contact Info) Description 05/02/2021 Lab Requisition [facility] Pathology & Laboratory Medicine - [address] [address] Maria A Harris[address] [address] Encounter for other general examination Social History Tobacco Use Types Packs/Day Years Used Date Smoking Tobacco: Never Assessed Sex and Gender Information Value Date Recorded Sex Assigned at Not on file Gender Identity Not on file Sexual Orientation Not on file documented as of this encounter Plan of Treatment Not on file documented as of this encounter Procedures Procedure Name Priority Date/Time Associated Diagnosis Comments SCREEN TEST Today 05/02/2021 6:43 EST Encounter for other general examination documented in this encounter Results * SCREEN TEST (05/02/2021 6:43 EST) Screen Test NEGATIVE 022 17:53 EST [facility] Comment:CALLED RESULTS TO DO JONE LEE AT [facility] AND FAXED TO [phone] @ 17:52 05/02/2021. Blood VENOUS BLOOD / Unknown 05/02/2021 6:43 EST 05/02/2021 17:10 EST Maria A Harris [facility] TESTS [facility] [address] [place] [address] documented in this encounter Visit Diagnoses Diagnosis Encounter for other general examination documented in this encounter Care Teams Mixer Operator Helper Hot Metal Relationship Specialty Start Date End Date Unknown, Provider, PCP - General 01/05/16 documented as of this encounter
--- OUTSIDE RECORDS SUMMARY | 2023-10-29 01:21 | XMS_ITS | Encounter Summary ---
Author Organization [facility] Address [address] [place] [address] Care Team Providers Care Human Resource Advisor Name Role Phone Unknown, Provider Primary Care Provider [phone] Encounter Details Date Type Department Care Team (Latest Contact Info) Description 12/06/2019 Lab Requisition [facility] Pathology & Laboratory Medicine - [facility] [address] [place] [address] Dina Maciel, DUSTY [address] [facility] [address] [place] [address] Encounter for general adult medical examination without abnormal findings; Encounter for screening for malignant neoplasm of cervix; Encounter for gynecological examination (general) (routine) without abnormal findings Social History Tobacco Use Types Packs/Day Years Used Date Smoking Tobacco: Never Assessed Sex and Gender Information Value Date Recorded Sex Assigned at Not on file Gender Identity Not on file Sexual Orientation Not on file documented as of this encounter Plan of Treatment Not on file documented as of this encounter Procedures Procedure Name Priority Date/Time Associated Diagnosis Comments PAP TEST Today 12/02/2019 10:00 EDT Encounter for general adult medical examination without abnormal findings Encounter for screening for malignant neoplasm of cervix Encounter for gynecological examination (general) (routine) without abnormal findings HPV DNA DETECTION WITH GENOTYPING, PCR Today 12/02/2019 10:00 EDT Encounter for general adult medical examination without abnormal findings Encounter for screening for malignant neoplasm of cervix Encounter for gynecological examination (general) (routine) without abnormal findings documented in this encounter Results * HUMAN PAPILLOMAVIRUS (HPV) DETECTION-HIGH RISK TYPES (12/02/2019 10:00 EDT) HPV other High Risk types, PCR Negative Negative 12/17/2019 15:16 [facility] Comment:No E6 or E7 mRNA is detected from HPV types 16,18,31,33,35,39,45,51,52,56,58,59,66, and 68 by turnaround planner mediated amplification. Papanicolaou smear specimen (specimen) CERVIX UTERI STRUCTURE / Unknown 12/02/2019 10:00 EDT 12/16/2019 14:54 EDT Dina Maciel CHIMNEY REPAIRER MICROBIOLOGY - GE NERAL ORDERABLES [facility] [address] [place] [address] * PAP TEST (12/02/2019 10:00 EDT) Specimens A. Cervix and/or Endocervix , ThinPrep Imaging System with Manual Evaluation 12/17/2019 15:16 [facility] Specimen Adequacy Satisfactory for Evaluation - transformation zone component present 12/17/2019 15:16 [facility] General Categorization Negative for intraepithelial lesion or malignancy 12/17/2019 15:16 [facility] Attestation . 12/17/2019 15:16 [facility] at 1516 Clinical History SEE ORDER COMMENTS 12/17/2019 15:16 [facility] HPV The result for the Human Papillomavirus (HPV) Detection-High Risk Types is Negative. No E6 or E7 mRNA is detected from HPV types 16,18,31,33,35,39 ,45,51,52,56,58,5 9,66, and 68 by turnaround planner mediated amplification.Iqra ting was performed on specimen [id number] and was resulted on 12/17/2019 1513 EDT by JACY, LAB INSTRUMENT RESULTS IN 12/17/2019 15:16 [facility] Performing Lab [facility] 12/17/2019 15:16 EDT [facility] Scanned Images 12/17/2019 15:16 EDT [facility] Papanicolaou smear specimen (specimen) CERVIX UTERI STRUCTURE / Unknown 12/02/2019 10:00 EDT 12/06/2019 11:07 EDT Dina Maciel CHIMNEY REPAIRER PATHOLOGY ORDERAB LES Performing Organization Address City/State/[facility] Co de Phone Number [facility] [address] [place] [address] documented in this encounter Visit Diagnoses Diagnosis Encounter for general adult medical examination without abnormal findings Unspecified general medical examination Encounter for screening for malignant neoplasm of cervix Screening for malignant neoplasm of the cervix Encounter for gynecological examination (general) (routine) without abnormal findings documented in this encounter Care Teams Human Resource Advisor Relationship Specialty Start Date End Date Unknown, Provider, PCP - General 01/05/16 documented as of this encounter
--- OUTSIDE RECORDS SUMMARY | 2023-10-29 01:21 | XMS_ITS | Clinical Summary ---
Author Organization [facility] Address [facility] [place] [address] Care Team Providers Care Curing Oven Tender Name Role Phone Dina Maciel APRN Primary Care Provider [phone] Allergies No known active allergies Medications Medication Sig Dispensed Refills Start Date End Date Status naproxen (NAPROSYN) 500 mg Tablet Take 1 tablet by mouth 2 times daily (with meals). 60 tablet 3 10/29/2017 Active Additional Information Patient not taking.Reported on 12/06/2020 vitamin with [id number] Tablet Take by mouth. Active Immunizations Name Administration Dates Next Due DTaP 01/08/2017 Hepatitis B Unspecified Formulation 07/20/1998,1 ,12/22/1997 Inactivated Polio Vaccine (IPOL) 09/27/1991 MMR Vaccine LIVE 12/22/1997,01/18/1988 Social History Tobacco Use Types Packs/Day Years Used Date Smoking Tobacco: Former Smokeless Tobacco: Never Sex and Gender Information Value Date Recorded Sex Assigned at Not on file Gender Identity Not on file Sexual Orientation Not on file Last Filed Vital Signs Vital Sign Reading Time Taken Comments Blood Pressure 113/77 11/28/2017 9:59 AM EDT Pulse 70 11/28/2017 9:59 AM EDT Temperature 36.6 ??C (97.9 ??F) 11/28/2017 9:59 AM ED T Respiratory Rate - - Oxygen Saturation 100% 11/28/2017 9:59 AM EDT Inhaled Oxygen Concentration - - Weight 80.3 kg (177 lb) 11/28/2017 9:59 AM EDT Height 165.1 cm (5' 5) 11/28/2017 9:59 AM EDT Body Mass Index 29.45 11/28/2017 9:59 AM EDT Plan of Treatment Health Maintenance Due Date Last Done Comments HIV screen 2004 Tdap adult 2005 HPV test 2016 PAP Smear 2016 Covid-19 Vaccine ( season) 2022 Influenza (Flu) vaccine (1 o f 1 - Influenza standard series) 12/07/2023 Tetanus vaccine 01/08/2027 01/08/2017 Hepatitis C Screening Completed 10/29/2017 Procedures Procedure Name Priority Date/Time Associated Diagnosis Comments HEPATITIS C ANTIBODY Routine 10/29/2017 12:56 PM EDT Chronic fatigue Chronic midline low back pain without sciatica from Last 3 Months or Most Recently Relevant to Health Maintenance Results * Hepatitis C Antibody (10/29/2017 12:56 PM EDT) Hepatitis C Ab Negative Negative [facility] Blood specimen (specimen) 10/29/2017 12:56 PM EDT 10/29/2017 1:04 PM EDT Narrative Resulting Agency Comment Spec In Lab Xenia Resendez MD IMMUNOLOGY ORDERABLE S [facility] [place] [address] from Last 3 Months or Most Recently Relevant to Health Maintenance Care Teams Curing Oven Tender Relationship Specialty Start Date End Date Dina Maciel APRN [address] [place] [address] PCP - General Family Medicine 09/23/17
--- OUTSIDE RECORDS SUMMARY | 2023-10-29 01:21 | XMS_ITS | Encounter Summary ---
Author Organization [facility] Address [address] [place] [address] Care Team Providers Care Bodywork Therapist Name Role Phone Unknown, Provider Primary Care Provider Encounter Details Date Type Department Care Team (Late st Contact Info) Description 06/13/2021 Lab Requisition [facility] Pathology & Laboratory Medicine - [address] [address] Outr Resulting Lab, Provider Social History Tobacco [...] Associated Diagnosis Comments CHLAMYDIA/N. GONORRHOEAE AMPLIFIED NUCLEIC ACID Routine 06/12/2021 9:50 EST documented in this encounter Results * CHLAMYDIA/N. GONORRHOEAE AMPLIFIED RNA (06/12/2021 9:50 EST) Neisseria gonorrhoeae Result Negative Negative 06/14/2021 15:07 EST [facility] Chlamydia trachomatis Result Negative Negative 06/14/2021 15:07 EST [facility] Swab ENTIRE ENDOCERVIX / Unknown 06/12/2021 9:50 EST 06/13/2021 18:12 EST Provider Outr Resulting Lab MICROBIOLOGY - GENERAL ORDERABLES [facility] [address] [place] [address] documented in this encounter Visit Diagnoses Not on filedocumented in this encounter Care Teams Bodywork Therapist Relationship Specialty Start Date End Date Unknown, Provider, PCP - General 01/05/16 documented as of this encounter
--- OUTSIDE RECORDS SUMMARY | 2023-10-29 01:21 | XMS_ITS | Encounter Summary ---
Author Organization [facility] Address [facility] [place] [address] Care Team Providers Care Electronic Warfare Linguist Name Role Phone Dina Maciel APRN Primary Care Provider [phone] Reason for Visit * Reason Comments Family History * Consultation (Routine) - Closed Specialty Diagnoses / Procedures Referred By Contac t Referred To Contact Obstetrics and Gynecology Diagnoses FAMILY HX POTTER SYNDROME, NEUROLOGIC CONDITION Vielka Gallardo, CHIKIS [address] [place] [address] [place] [address] [facility] [facility] [address] Deal[address] [place] [address] Referral ID Status Reason Start Date Expiration Date V isits Requested Visits Authorized [id number] Closed Consult, Test & Treat Connection [facility] PCP Updated and/or Approved 11/14/2020 11/14/2021 1 1 Encounter Details Date Type Department Care Team (Latest Contact Info) Description 11/20/2020 9:00 AM EDT TH Visit (TeleHealth) Obstetrics [place] [address] Rachel Brantley, [facility] [place] [address] 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 female currently at 16w5d gestation. I met with Sierra for a 30 minute genetic counseling video visit. She was unexpectedly located in [place], where she wasvisiting her mother. Referring Provider: Vielka Gallardo CNM Chief Complaint Patient presents with ??? Family History Consanguinity was denied. Patient's last menstrual period was 07/26/2020 (exact date). Estimated Date of Delivery: 05/02/21 based on LMP and supported by ultrasound (09/20/20 = 8.0 weeks) Completed Screening Test Result ??? Aneuploidy screen - [place] Low risk for trisomies 13, 18, 21. Male ?? Spinal muscular atrophy screen Negative per record ??? Cystic fibrosis carrier screen Negative per record ??? Thalassemia screen MCV within normal limits (87.2 fL) Family History Assessment ?? First cousin with congenital fiber-type disproportion: Sierra reported her maternal aunt's daughter, Umu, has congenital fiber-type disproportion. Congenital fiber-type disproportion is a condition that primarily affects skeletal muscles, causingweakness particularly in the muscles of the shoulders, upper arms, hips, and thighs. Weakness can also affect the muscles of the face, eye movement, and muscles needed for eating and breathing. Sierra reported Umu was diagnosed as a and is in a wheelchair, cannot talk, and cannot eat. Congenital fiber-type disproportion can have multiple inheritance patterns. Mutations in the TPM3, RYR1 and ACTA1 genes cause 35 to 50 percent of cases, while mutations in other genes, some known and some unidentified, are responsible for the remaining cases. Since it is not progressing as expected, Cheryl rose's clinical diagnosis is currently being questioned, and genetic testing has been ordered and is pending. We reviewed autosomal recessive and autosomal dominant inheritance patterns. If autosomal dominant,there would not be an increased chance for recurrence as it would likely be a sporadic mutation in Umu. If autosomal recessive, Sierra would have an increased chance (25%) of being a carrier. Thechance of recurrence to her baby would likely still be low as her partner would also have to be a ca rrier of this rare condition. It can be difficult to determine inheritance pattern in the family ofa simplex case when a pathogenic variant is not identified. I explained any carrier testing for Sierra should be interpreted in the context of a known familial variant, especially since Umu's diagnosis is being questioned. Sierra plans to update me once she learns of Umu's test results. First cousin once-removed with two pregnancies with Potters sequence and skeletal dysplasia: Sierra reported the same maternal aunt has a daughter who had two pregnancies that ended early due to Potter sequence and skeletal dysplasia. She is not sure if these pregnancies ended as miscarriage or p regnancy termination. Her cousin also has two healthy children. We reviewed there can be many causes of Potters sequence including various causes for amniotic fluid absence such as urinary tract anomalies, causing the features of Potters sequence including lung hypoplasia, clubbed feet, and dysmorphic facies. Abnormalities of the extremities and spine have been reported in association with Potters sequence. Given two affected siblings, this implies either autosomal dominant inheritance with variable expression (we discussed unilateral renal agenesis and bilateral renal agenesis cluster in families and can be inherited as a dominant); or autosomal recessive. If recessive, Sierra would have a higher than typical chance to be a carrier but risk to her baby is likely low given her partner isunisabel to also be a carrier. There is no specific carrier screening to consider. Ultrasound to assess the urinary tract and amniotic fluid volume could be informative. Plan: Sierra will contact me with any updated information about her relatives. Morphology ultrasound is scheduled locally. Sierra declined changing her appointment to come here for detailed ultrasound. Consider third trimester ultrasound for growth and amniotic fluid volume. 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
--- OUTSIDE RECORDS SUMMARY | 2023-10-29 01:21 | XMS_ITS | Referral Summary ---
Author Organization [facility] Address [address] [place] [address] Care Team Providers Care Rush Seater Name Role Phone Unknown, Provider Primary Care Provider Social History Tobacco Use Types Packs/Day Years Used Date Smoking Tobacco: Never Assessed Sex and Gender Information Value Date Recorded Sex Assigned at Not on file Gender Identity Not on file Sexual Orientation Not on file Plan of Treatment Not on file Procedures Procedure Name Priority Date/Time Associated Diagnosis Comments HEPATITIS C AB W REFLEX TO HCV RNA BY PCR Routine 10/11/2020 15:00 EDT from Last 3 Months or Most Recently Relevant to Health Maintenance Results * HEPATITIS C AB W REFLEX TO HCV RNA BY PCR (10/11/2020 15:00 EDT) Hep C Antibody Negative Negative 10/12/2020 10:[address] [facility] Blood VENOUS BLOOD / Unknown 10/11/2020 15:00 EDT 10/11/2020 20:46 EDT Provider Outr Resulting Lab CHEMISTRY & BLOOD GAS ORDERABLES [facility] [address] [place] [address] from Last 3 Months or Most Recently Relevant to Health Maintenance Care Teams Rush Seater Relationship Specialty Start Date End Date Unknown, Provider, PCP - General 01/05/16
--- OUTSIDE RECORDS SUMMARY | 2023-10-29 01:21 | XMS_ITS | Encounter Summary ---
Author Organization [facility] Address [address] [place] [address] Care Team Providers Care Solo Truck Driver Name Role Phone Unknown, Provider Primary Care Provider Encounter Details Date Type Department Care Team (Late st Contact Info) Description 01/31/2020 Lab Requisition [facility] Pathology & Laboratory Medicine - [facility] [address] [place] [address] Thalia Anderson, [address] [id number] Contact with and (suspected) exposure to other viral communicable diseases Social History Tobacco Use Types Packs/Day Years Used Date Smoking Tobacco: Never Assessed Sex and Gender Information Value Date Recorded Sex Assigned at Not on file Gender Identity Not on file Sexual Orientation Not on file documented as of this encounter Plan of Treatment Not on file documented as of this encounter Procedures Procedure Name Priority Date/Time Associated Diagnosis Comments COVID-19 PONCE TEST Today 01/31/2020 9: 45 EDT Contact with and (suspected) exposure to other viral communicable diseases documented in this encounter Results * COVID-19 PONCE TEST (01/31/2020 9:45 EDT) SARS CoV-2 Specimen Source Nasal 02/05/2020 0:16 EDT [facility] Patient Race Unknown 02/05/2020 0:16 EDT [facility] Patient Ethnicity Unknown 02/05/2020 0:16 EDT [facility] SARS-CoV-2 RNA Result Undetected Undetected 02/05/2020 0:16 EDT [facility] Comment: SARS-CoV-2 RNA absent. This result does not rule out COVID-19 in the patient, as the sensitivity of the test depends on the timing of the specimen collection and the quality of the specimen. Result should be correlated with patient's history and clinical presentation. Method Summary SEE NOTE 02/05/2020 0:16 EDT [facility] Comment: PKELM- This test uses the [employer] New Coronavirus Nucleic Acid Detection Kit ([employer] and is performed on the [place] instrument and [employer] 7500 Fast Real-Time PCR System. It has received Emergency Use Authorization (EUA) by the U.S. Food and Drug Administration, and is modified from the fretted string instrument repairer's instructions with a bridging study. Performance characteristics were verified by [facility] in a manner consistent with CLIA requirements. Fact sheets for this Emergency Use Authorization (EUA) can be found at the following links: https://www.fda.gov/media/918891/download for Healthcare Providers https://www.fda.gov/media/223073/download for Patients Test Performed by: [facility] [place] [address] Stratigrapher: Antonio Keene M.D. Ph.D.; CLIA# [id number] Swab NASAL / Unknown Swab / Unknown 01/31/2020 9:45 EDT 01/31/2020 21:20 EDT Analesa Soledad Justin [facility] MICROBIOL OGY - GENERAL ORDERABLES Performing Organization Address City/State/[facility] Co de Phone Number [facility] [address] [place] [address] documented in this encounter Visit Diagnoses Diagnosis Contact with and (suspected) exposure to other viral communicable diseases documented in this encounter Care Teams Solo Truck Driver Relationship Specialty Start Date End Date Unknown, Provider, PCP - General 01/05/16 documented as of this encounter
--- OUTSIDE RECORDS SUMMARY | 2023-10-29 01:21 | XMS_ITS | Encounter Summary ---
Author Organization [facility] [place] [address] Care Team Providers Care Supervisor Cell Room Name Role Phone Dina Maciel APRN Primary Care Provider [phone] Reason for Visit * Consultation (Routine) - Closed Specialty Diagnoses / Procedures Referred By Contguilherme t Referred To Contact Rheumatology Diagnoses FATIGUE AND ELEVATED TRE Dina Maciel APRN [address] [place] [address] [facility] Rheumatology [address] [place] [id number] Referral ID Status Reason Start Date Expiration Date V isits Requested Visits Authorized [id number] Closed Consult, Test & Treat [facility] 09/23/2017 09/23/2018 1 1 Encounter Details Date Type Department Care Team (Late st Contact Info) Description 10/29/2017 11:00 AM EDT Office [place] [phone] Xenia Resendez MD [facility] [place] [address] Chronic fatigue; Chronic midline low back pain without sciatica; Raised antibody titer; Rash; Nail pitting; Family history of psoriasis in mother Social History Tobacco Use Types Packs/Day Years Used Date Smoking Tobacco: Former Smokeless Tobacco: Never Sex and Gender Information Value Date Recorded Sex Assigned at Not on file Gender Identity Not on file Sexual Orientation Not on file documented as of this encounter Last Filed Vital Signs Vital Sign Reading Time Taken Comments Blood Pressure 127/69 10/29/2017 11:06 AM EDT Pulse 65 10/29/2017 11:06 AM EDT Temperature 37 ??C (98.6 ??F) 10/29/2017 11:06 AM EDT Respiratory Rate - - Oxygen Saturation 100% 10/29/2017 11:06 AM EDT Inhaled Oxygen Concentration - - Weight 80.7 kg (178 lb) 10/29/2017 11:06 AM EDT Height 165.1 cm (5' 5) 10/29/2017 11:06 AM EDT Body Mass Index 29.62 10/29/2017 11:06 AM EDT documented in this encounter Patient Instructions * Patient Instructions* Xenia Resendez MD - 10/29/2017 11:00 AM EDT Images from the original note were not included. Learning About Relief for Back Pain What is back tension and strain? Back strain happens when you overstretch, or pull, a muscle in your back. You may hurt your back inan accident or when you exercise or lift something. Most back pain will get better with rest and time. You can take care of yourself at home to help your back heal. What can you do first to relieve back pain? When you first feel back pain, try these steps: ?? Walk. Take a short walk (10 to 20 minutes) on a level surface (no slopes, hills, or stairs) every 2 to 3 hours. Walk only distances you can manage without pain, especially leg pain. ?? Relax. Find a comfortable position for rest. Some people are comfortable on the floor or a medium-firm bed with a small pillow under their head and another under their knees. Some people prefer tolie on their side with a pillow between their knees. Don't stay in one position for too long. ?? Try heat or ice. Try using a heating pad on a low or medium setting, or take a warm shower, for 15 to 20 minutes every 2 to 3 hours. Or you can buy single- use heat wraps that last up to 8 hours. You can also try an ice pack for 10 to 15 minutes every 2 to 3 hours. You can use an ice pack or a bag of frozen vegetables wrapped in a thin towel. There is not strong evidence that either heat or icewill help, but you can try them to see if they help. You may also want to try switching between heat and cold. ?? Take pain medicine exactly as directed. ? If the doctor gave you a prescription medicine for pain, take it as prescribed. ? If you are not taking a prescription pain medicine, ask your doctor if you can take an lkga-wqh-duutpvl medicine. What else can you do? ?? Stretch and exercise. Exercises that increase flexibility may relieve your pain and make it easier for your muscles to keep your spine in a good, neutral position. And don't forget to keep walking. ?? Do self-massage. You can use self-massage to unwind after work or school or to energize yourselfin the morning. You can easily massage your feet, hands, or neck. Self-massage works best if you are in comfortable clothes and are sitting or lying in a comfortable position. Use oil or lotion to massage bare skin. ?? Reduce stress. Back pain can lead to a vicious table mountain: Distress about the pain tenses the muscles in your back, which in turn causes more pain. Learn how to relax your mind and your muscles to lower your stress. Where can you learn more? Visit our health information library at [email or web address]. You can also view health information on [employer], your personal patient account. Log in or sign uptoday. Enter Q517 in the search box to learn more about Learning About Relief for Back Pain. Current as of: March 05, 2017 Content Version: 11.7 ?? [id number] [employer]. Care instructions adapted under license by [facility]. If you have questions about a medical condition or this instruction, always ask your healthcare professional. [employer] disclaims any warranty or liability for your use of this information. documented in this encounter Progress Notes * Xenia Resendez MD - 10/29/2017 11:00 AM EDT Outpatient Rheumatology Consult CC: Asked by Dina Maciel to evaluate this patient with fatigue and elevated TRE. Had blood work in September 2017 given fatigue. In September, LBP felt to be possibly from IUD inserted in July. HPI: Sierra is 32 yo F with no significant past medical history. LBP for 8 months to one year. Gradually worsening. Had xray spine at Chiropractor's office, told tohave bone spur. No trauma/injury. 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 Chiropractor manipulation twice weekly helps for short duration. Very stiff in the morning. Stretching and hot shower to loosen up. Rest and stretching help with LBP. Standing when teaching for long duration, aggravates the pain. Does not take oral pain medications, other than topical arnica gel for LBP. No known h/o psoriasis. No pain or swelling in any other joints, achilles tendon, GI or problems, eye problems. Positive snoring at night PMH: None Social Hx: per patient history form. No smoking, alcohol or drug use. 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 Family Hx: per patient history form Mother has psoriasis, only in L elbow/forearm. Intolerance to gluten In Mother and Sister. Not sure about father's health Paternal GM with ? Leukemia/skin disease ROS: per patient history form Gen: no night sweats, fevers. Fatigue for > 6 months Bruises easily for long time Skin: no rashes, no hair loss Mouth: denies dry mouth, no oral ulcers. Snoring. Eyes: no erythema or pain Lymph: no adenopathy Vascular: no Raynaud's, no digital ischemia Heart: no chest pain, palpitations Lungs: no dyspnea, cough, wheezing Abd: no pain, GERD, diarrhea, constipation : no dysuria, no flank pain Musculoskeletal: per HPI Physical Exam: Gen: Patient is awake, alert and oriented x 3, in no distress Skin: warm and dry, no rheumatologic rashes Lymph: no cervical or submandibular adenopathy Thyroid: no nodules or thyromegaly Mouth: moist mucous membranes, no oral ulcers Eyes: normal sclerae Heart: regular rate, no murmurs, rubs or gallops Lungs: clear to auscultation b/l Spine: normal ROM and no tenderness. No SI joint tenderness. Roddy's test 16 cm Musculoskeletal: No active synovitis. No evidence of enthesitis. FROM in all joints. ABBY test negative. Normal oropharynx. L elbow with dry, scaly, skin, minimal/?erythema Nail pitting in hands. Labs: 09/16/2017 CBC, WNL, CMP, WNL Magnesium 1.8 Albumin 4.1 TRE 1:160 speckled pattern ESR 9 Ferritin 45, TIBC 348, iron 181, Repeated iron studies in October WNL T bili 1.3 (0.2-1.0) in September, always slightly elevated per patient. D. Bili 0.19 Lyme antibody negative, tick borne DNA panel with Anaplasma phagocyticum, Ehrlichia chaffeensis, ewingii, muris-like negative TSH 1.32 in September 2017 Impression/Recommendations: Sierra is 32 yo F with no significant past medical history here for evaluation of fatigue, positive TRE 1:160 SP. Also with low back pain associated with stiffness for about 1 year. No known family history of ankylosing spondylitis, psoriasis, GI, problems, eye problems. Pain in the coccygeal area. No history of trauma, injury, fall. Does have nail pitting. Based on history, exam, possible inflammatory nature of low back pain with significant stiffness inthe morning, stretching, rest help. Standing for long duration aggravates the low back pain. L elbow with dry scaly skin. Nail pitting. Mother has psoriasis, only in L elbow/forearm. No evidence of ap pendicitis Consider workup for spondylarthritis pending blood work, imaging. About 10-12% of the general palpation can have positive TRE which might/might not predate disease activity. ROS otherwise negative for CTD. Check ESR, CRP, RF, CCP, Hepatitis serologies, quantiferon, CK, CBC, CMP, TRE, dsDNA, HLA B27, Xray SI joints, lumbar spine Start naproxen 500 mg bid, discussed about the side effects including but not limited to GI upset, liver, kidney, cardiovascular problems Encouraged back stretching and strengthening exercises as tolerated. RTC in 4-6 weeks Addendum: ESR 6, CRP 0.5, RF RF, CCP, HLA-B27, hepatitis B, C serologies, QuantiFERON, TRE SAMMI, dsDNA negative CBC, CMP, CK WNL Xray L spine WNL. Xray SI joints, pending ? Refer to Dermatology/perraza group for evaluation. documented in this encounter Plan of Treatment Not on file documented as of this encounter Procedures Procedure Name Priority Date/Time Associated Diagnosis Comments CRP, ACUTE INFLAMMATION Routine 10/29/2017 12:56 PM EDT Chronic fatigue Chronic midline low back pain without sciatica EXTRACTABLE NUCLEAR ANTIGEN (SAMMI) AB Routine 10/29/2017 12:56 PM EDT Chronic fatigue Chronic midline low back pain without sciatica QUANTIFERON-TB GOLD Routine 10/29/2017 1 2:56 PM EDT Chronic fatigue Chronic midline low back pain without sciatica ANTI-CYCLIC CITRULLINATED PEPTIDE AB Routine 10/29/2017 12:56 PM EDT Chronic fatigue Chronic midline low back pain without sciatica DNA ANTIBODY (DOUBLE-STRANDED) Routine 10/29/2017 12:56 PM EDT Chronic fatigue Chronic midline low back pain without sciatica HEMOGRAM Routine 10/29/2017 12:56 PM EDT Chronic fatigue Chronic midline low back pain without sciatica DIFFERENTIAL, AUTOMATED Routine 10/29/2017 12:56 PM EDT Chronic fatigue Chronic midline low back pain without sciatica HLA-B27 Routine 10/29/2017 12:56 PM EDT Chronic fatigue Chronic midline low back pain without sciatica HEPATITIS C ANTIBODY Routine 10/29/2017 12:56 PM EDT Chronic fatigue Chronic midline low back pain without sciatica HEPATITIS B CORE ANTIBODY, TOTAL Routine 10/29/2017 12:56 PM EDT Chronic fatigue Chronic midline low back pain without sciatica HEPATITIS B SURFACE ANTIBODY Routine 10/29/2017 12:56 PM EDT Chronic fatigue Chronic midline low back pain without sciatica HEPATITIS B SURFACE ANTIGEN Routine 10/29/2017 12:56 PM EDT Chronic fatigue Chronic midline low back pain without sciatica SEDIMENTATION RATE Routine 10/29/2017 12 :56 PM EDT Chronic fatigue Chronic midline low back pain without sciatica CBC (WITH DIFF) Routine 10/29/2017 12:56 PM EDT Chronic fatigue Chronic midline low back pain without sciatica RHEUMATOID FACTOR, QUANT Routine 10/29/2017 12:56 PM EDT Chronic fatigue Chronic midline low back pain without sciatica TRE ANTIBODY SCREEN Routine 10/29/2017 1 2:56 PM EDT Chronic fatigue Chronic midline low back pain without sciatica CK Routine 10/29/2017 12:56 PM EDT Chronic fatigue Chronic midline low back pain without sciatica COMPREHENSIVE METABOLIC PANEL (NON-FASTING) Routine 10/29/2017 12:56 PM EDT Chronic fatigue [...] process. Xenia Resendez MD IMG DX ORDERABLES * Differential, Automated (10/29/2017 12:56 PM EDT) Neutrophils % 64.6 % [facility] Neutr Abs (ANC) 4.75 1.70 - 6.10 x10(3)/[facility] Lymphocytes % 26.6 % [facility] Lymphocytes Abs 2.0 0.9 - 3.2 x10(3)/[facility] Monocytes % 7.3 % [facility] Monocyte Abs 0.5 0.3 - 0.9 x10(3)/[facility] Eosinophils % 0.8 % [facility] Eosinophils Abs 0.1 0.0 - 0.4 x10(3)/[facility] Basophils % 0.4 % [facility] Basophils Abs 0.0 0.0 - 0.1 x10(3)/[facility] Immature Gran % 0.30 % [facility] Comment: Immature granulocytes(IG's)percentage and absolute count will include metamyelocytes, myelocytes, and promyelocytes. Blood smears from CBCs yielding IG's will be scanned manually for concordance. If this scan disagrees with the automated IG or if promyelocytes are noted, a manual differential will be performed. Sandy Gran Abs 0.02 0.00 - 0.04 x10(3)/[facility] Blood specimen (specimen) 10/29/2017 12:56 PM EDT 10/29/2017 1:04 PM EDT Narrative Resulting Agency Comment Spec In Lab Xenia Resendez MD HEMATOLOGY ORDERABLE S [facility] [place] [address] * (ABNORMAL) Hemogram (10/29/2017 12:56 PM EDT) Pathologist [facility] WBC 7.7 4.0 - 9.5 x10(3)/[facility] RBC 4.33 4.00 - 5.21 x10(6)/[facility] Hemoglobin 14.3 11.7 - 15.5 gm/dL [facility] Hematocrit 39.3 35.7 - 45.8 % [facility] MCV 90.8 82.6 - 94.4 fL [facility] MCH 33.0(H) 27.1 - 32.0 pg [facility] MCHC 36.4(H) 31.7 - 35.0 gm/dL [facility] Platelets 212 145 - 357 x10(3)/[facility] RDWSD 39.0 37.0 - 46.0 [facility] RDWCV 11.8 11.5 - 14.1 % [facility] MPV 10.6 7.6 - 12.9 [facility] nRBC % Auto 0.0 % [facility] nRBC Abs Auto 0.000 0.000 - 0.000 x10(3)/[facility] Blood specimen (specimen) 10/29/2017 12:56 PM EDT 10/29/2017 1:04 PM EDT Narrative Resulting Agency Comment Spec In Lab Xenia Resendez MD HEMATOLOGY ORDERABLE S [facility] [place] [address] * CK (10/29/2017 12:56 PM EDT) Pathologist [facility] CK, Total 59 0 - 160 unit/L [facility] Blood specimen (specimen) 10/29/2017 12:56 PM EDT 10/29/2017 1:04 PM EDT Narrative Resulting Agency Comment Spec In Lab Xenia Resendez MD CHEMISTRY ORDERABLES [facility] [place] [address] * (ABNORMAL) Comprehensive metabolic panel (non-fasting) (10/29/2017 12:56 PM EDT) Glucose Lvl 89 65 - 199 mg/dL [facility] Comment:Diabetes: >=200 mg/d L plus symptoms BUN 12 8 - 18 mg/dL [facility] Creatinine 0.71 0.70 - 1.20 mg/dL [facility] Sodium 135 135 - 145 mmol/L [facility] Potassium 3.9 3.5 - 5.0 mmol/L [facility] Comment: Please note: ??Patients with WBC >100,000 may have falsely elevated Potassium levels. ??For accurate Potassium quantification in these patients send serum separator tube (gold top) for subsequent determinations. ??Contact the Clinical Chemistry Laboratory if there are any questions. Chloride 97(L) 98 - 107 mmol/L [facility] CO2 24 22 - 31 mmol/L [facility] Anion Gap 14 5 - 15 mmol/L [facility] Calcium 9.5 8.5 - 10.5 mg/dL [facility] Total Protein 7.4 6.1 - 8.0 gm/dL [facility] Albumin 4.8 3.2 - 5.2 gm/dL [facility] AST 16 0 - 30 unit/L [facility] ALT 17 0 - 30 unit/L [facility] Alk Phos 54 40 - 104 unit/L [facility] Total Bilirubin 1.0 0.2 - 1.3 mg/dL [facility] Estimated GFR 113 >=60 mL/min/1. 73 m?? [facility] Comment: The eGFR was calculated using the CKD-EPI equation. As with all creatinine based estimates of kidney function, eGFR values calculated with the CKD-EPI equation are not accurate in patients with acute kidney failure, extremes of body mass or the acutely ill. http://[employer]/DHnkdep http://[employer]/[facility] TULSAnkf eGFR 132 >=60 mL/min/1. 73 m?? [facility] Comment: The eGFR was calculated using the CKD-EPI equation. As with all creatinine based estimates of kidney function, eGFR values calculated with the CKD-EPI equation are not accurate in patients with acute kidney failure, extremes of body mass or the acutely ill. http://[employer] http://[employer]/[facility] TULSAnkf Blood specimen (specimen) 10/29/2017 12:56 PM EDT 10/29/2017 1:04 PM EDT Narrative Resulting Agency Comment Spec In Lab Xenia Resendez MD CHEMISTRY ORDERABLES Performing Organization Address City/[facility]/ZIP Co de Phone Number [facility] [place] [address] * DNA Antibody (Double-Stranded) (10/29/2017 12:56 PM EDT) DNA Ab (DS) Neg Neg [facility] Blood specimen (specimen) 10/29/2017 12:56 PM EDT 10/30/2017 7:07 AM EDT Narrative Resulting Agency Comment Spec In Lab Xenia Resendez MD CHEMISTRY ORDERABLES Performing Organization Address [facility]/ZIP Co de Phone Number [facility] [place] [address] * Extractable Nuclear Antigen (SAMMI) Ab (10/29/2017 12:56 PM EDT) SAMMI Ab Test ?Result ?Flag ??Unit ??RefValue Ab to Extractable Nuclear Ag Eval,S ??SS-A/Ro Ab, IgG, S ?<0.2 ?U ? <1.0 (Negative) ??SS-B/La Ab, IgG, S ?<0.2 ?U ? <1.0 (Negative) ??Sm Ab, IgG, S ? <0.2 ?U ? <1.0 (Negative) ??OIL PIPELINE OPERATOR Ab, IgG, S ?0.3 ? U ? <1.0 (Negative) ??Scl 70 Ab, IgG, S ? <0.2 ?U ? <1.0 (Negative) ??Roya 1 Ab, IgG, S ? <0.2 ?U ? <1.0 (Negative) ?Test Performed by: ?[facility] ?[address] [place], [place] [id number] [place] [address] LABORATORY Blood specimen (specimen) 10/29/2017 12:56 PM EDT 10/29/2017 2:29 PM EDT Narrative Resulting Agency Comment Spec In Lab Xenia Resendez MD IMMUNOLOGY ORDERABLE S [facility] [place] [address] * TRE (10/29/2017 12:56 PM EDT) TRE Neg Neg [facility] Blood specimen (specimen) 10/29/2017 12:56 PM EDT 10/30/2017 7:07 AM EDT Narrative Resulting Agency Comment Spec In Lab Xenia Resendez MD IMMUNOLOGY ORDERABLE S Performing Organization Address [facility]/ZIP Co de Phone Number [facility] [place] [address] * QuantiFERON-TB Gold (10/29/2017 12:56 PM EDT) QFT Nil 0.021 IU/mL [facility] QFT TB Ag-Nil 0.004 IU/mL [facility] QFT Mitogen-Nil >10.000 IU/mL [facility] Quantiferon TB Negative Negative [facility] Quantiferon TB Interp M. tuberculosis (TB) infection NOT likely ?A negative specimen should have a TB Ag minus Nil value less than 0.35 IU/mL OR a TB Ag minus Nil greater than or equal to 0.35 IU/mL and in addition the TB Ag minus Nil value must be less than 25% of the Nil value. A negative specimen should have a Mitogen minus Nil value greater than or equal to 0.5 IU/mL. ?A negative QuantiFERON-TB Gold IT result does not preclude the possibility of M. tuberculosis infection or tuberculosis disease: false negative results can be due to stage of infection (e.g., specimen obtained prior to the development of cellular immune response), co-morbid conditions which affect immune function, or other individual immunological factors. [facility] Comment: ?The performance of the QuantiFERON-TB Gold IT test has not been extensively evaluated with specimens from the following groups of individuals: ?1. Individuals who have impaired or altered immune function such as those who have HIV infection or AIDS, those who have transplantation managed with immunosuppressive treatment or others who receive immunosuppressive drugs (e.g., corticosteroids, methotrexate, azathioprine, cancer chemotherapy), and those who have other clinical conditions: diabetes, silicosis, chronic renal failure, hematological disorders (e.g., leukemia and lymphomas), and other specific malignancies (e.g., carcinoma of the head or neck and lung). ?2. Individuals younger than age 17 years. ?3. women. Note: Diagnosing or excluding tuberculosis disease, and assessing the probability of LTBI, require a combination of epidemiological, historical, medical, and diagnostic findings that should be taken into account when interpreting QuantiFERON-TB Gold results. Reference (http://www.cdc.gov/nchstp/tb/) Blood specimen (specimen) 10/29/2017 12:56 PM EDT 10/30/2017 6:29 AM EDT Narrative Resulting Agency Comment Spec In Lab Xenia Resendez MD CHEMISTRY ORDERABLES Performing Organization Address [facility] Co de Phone Number [facility] [place] [address] * Hepatitis C Antibody (10/29/2017 12:56 PM EDT) [facility] Hepatitis C Ab Negative Negative [facility] Blood specimen (specimen) 10/29/2017 12:56 PM EDT 10/29/2017 1:04 PM EDT Narrative Resulting Agency Comment Spec In Lab Xenia Resendez MD IMMUNOLOGY ORDERABLE S Performing Organization Address [facility] Co de Phone Number [facility] [place] [address] * Hepatitis B Surface Antibody (10/29/2017 12:56 PM EDT) [facility] HepB Surface Ab Quant >1,000.0 IU/L [facility] Comment: HepB Surface Ab Quant: Unvaccinated: < 8.5 IU/L Vaccinated: > 11.5 IU/L HepB Surface Ab Positive [facility] Comment: Patient is considered to be immune to HBV infection. Expected Results: Vaccinated: Positive Unvaccinated: Negative Blood specimen (specimen) 10/29/2017 12:56 PM EDT 10/29/2017 1:04 PM EDT Narrative Resulting Agency Comment Spec In Lab Xenia Resendez MD IMMUNOLOGY ORDERABLE S Performing Organization Address City/[facility]/ZIP Co de Phone Number [facility] [place] [address] * Hepatitis B Surface Antigen (10/29/2017 12:56 PM EDT) HepB Surface Ag Negative Negative [facility] Blood specimen (specimen) 10/29/2017 12:56 PM EDT 10/29/2017 1:04 PM EDT Narrative Resulting Agency Comment Spec In Lab Xenia Resendez MD CHEMISTRY ORDERABLES Performing Organization Address City/[facility]/ZIP Co de Phone Number [facility] [place] [address] * Hepatitis B Core Antibody, Total (10/29/2017 12:56 PM EDT) Hep B Core Ab Negative Negative [facility] Blood specimen (specimen) 10/29/2017 12:56 PM EDT 10/29/2017 1:04 PM EDT Narrative Resulting Agency Comment Spec In Lab Xenia Resendez MD CHEMISTRY ORDERABLES Performing Organization Address [facility] Co de Phone Number [facility] [place] [address] * HLA-B27 (10/29/2017 12:56 PM EDT) HLA-B27 Negative [facility] HLA-B27 Interp HLA B27 antigen was not detected. Method: Flow Cytometry Reference: 1.Evelyn FREEMAN, Calvin CRISTINA, Anthony Gregorio, et al: Ankylosing spondylitis and HLA-27. Lancet 1973;1:904-907 2.Gil Downey: HLA-B27 typing by use of flow cytofluorometry . Clin Chem 1987;33:1619-16 23 [facility] WBC 7.7 4.0 - 9.5 x10(3)/mc L [facility] Blood specimen (specimen) 10/29/2017 12:56 PM EDT 10/29/2017 1:04 PM EDT Narrative Resulting Agency Comment Spec In Lab Xenia Resendez MD HEMATOLOGY ORDERABLE S Performing Organization Address City/[facility]/ZIP Co de Phone Number [facility] [place] [address] * Cyclic Citrullinated Peptide (10/29/2017 12:56 PM EDT) Anti-Cyc Cit Peptide <0.5 <=4.9 unit/mL [facility] Comment: An updated CCP assay reagent was implemented 07/18/16. Please note the modified reference interval. Blood specimen (specimen) 10/29/2017 12:56 PM EDT 10/29/2017 1:04 PM EDT Narrative Resulting Agency Comment Spec In Lab Xenia Resendez MD CHEMISTRY ORDERABLES Performing Organization Address [facility] Co de Phone Number [facility] [place] [address] * Rheumatoid factor, quant (10/29/2017 12:56 PM EDT) RF <10 <=14 IU/mL [facility] Blood specimen (specimen) 10/29/2017 12:56 PM EDT 10/29/2017 1:04 PM EDT Narrative Resulting Agency Comment Spec In Lab Xenia Resendez MD IMMUNOLOGY ORDERABLE S Performing Organization Address City/[facility]/ZIP Co de Phone Number [facility] [place] [address] * CRP, acute inflammation (10/29/2017 12:56 PM EDT) CRP 0.5 <=4.9 mg/L [facility] Blood specimen (specimen) 10/29/2017 12:56 PM EDT 10/29/2017 1:04 PM EDT Narrative Resulting Agency Comment Spec In Lab Xenia Resendez MD CHEMISTRY ORDERABLES Performing Organization Address City/[facility]/ZIP Co de Phone Number [facility] [place] [address] * Sedimentation rate (10/29/2017 12:56 PM EDT) Sed Rate 6 0 - 20 mm/hr [facility] Blood specimen (specimen) 10/29/2017 12:56 PM EDT 10/29/2017 1:04 PM EDT Narrative Resulting Agency Comment Spec In Lab Xenia Resendez MD HEMATOLOGY ORDERABLE S Performing Organization Address [facility] Co de Phone Number [facility] [place] [address] * XR Lumbar Spine 2 Or 3 [...] in this encounter Visit Diagnoses Diagnosis Chronic fatigue Other malaise and fatigue Chronic midline low back pain without sciatica Raised antibody titer Other and unspecified nonspecific immunological findings Rash Rash and other nonspecific skin eruption Nail pitting Other specified disease of nail Family history of psoriasis in mother Chronic midline low back pain without sciatica Chronic midline low back pain without sciatica documented in this encounter Care Teams Supervisor Cell Room Relationship Specialty Start Date End Date Dina Maciel, DUSTY [address] [place] [address] PCP - General Family Medicine 09/23/17 documented as of this encounter
--- OUTSIDE RECORDS SUMMARY | 2023-10-29 01:21 | XMS_ITS | Encounter Summary ---
Author Organization [facility] [place] [address] Care Team Providers Care Drone Pilot Name Role Phone Dina Maciel APRN Primary Care Provider [phone] [phone] Encounter Details Date Type Department Care Team (Late st Contact Info) Description 11/28/2017 10:00 AM EDT Office [place] [address] Xenia Resendez MD [facility] [place] [address] Inflammatory back pain; halfway current use of non-steroidal anti-inflammatories (NSAID); Nail pitting; Family history of psoriasis in [...] Mass Index 29.45 11/28/2017 9:59 AM EDT documented in this encounter Progress Notes * Xenia Resendez MD - 11/28/2017 10:00 AM EDT Rheumatology history: The patient returns for follow up of fatigue, positive TRE Initially evaluated on 10/29/17 Had blood work in September 2017 given fatigue. In September, LBP felt to be possibly from IUD inserted in July. Back pain for 8 months to 1 year, gradually worsening, associated with stiffness. Stretching and rest help with low back pain. Started naproxen in October, 80% relief. Chiropractic manipulation helps for couple of days (once weekly) Exam with nail pitting in hands, dry scaly lesion in the left elbow (inactive). Mother has psoriasis, only in L elbow/forearm. No evidence of /back pain. Otherwise, ROS negative for CTD, no FH of , IBD, eye problems. No evidence of inflammatory arthritis, enthesitis. Extensive workup including inflammatory markers, HLA-B27 negative. Repeat TRE negative. Interim, Chiropractor manipulation helps, once weekly. Feels great for couple of days and then gradually notices same level back pain Naproxen 500 mg twice daily helps up to 80%. Tolerating well with no known side effects. Reviewed blood work. X-ray of the lumbar spine. ROS: Fatigue for >6 months Snoring Easy bruising Social Hx: per patient history form. No smoking, alcohol or drug use. 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 ?? Family Hx: per patient history form Mother has psoriasis, only in L elbow/forearm. Intolerance to gluten In Mother and Sister. Not sure about father's health Paternal GM with ? Leukemia/skin disease Physical exam: Gen: Patient is awake, alert and oriented x 3, in no distress Skin: warm and dry, no rheumatologic rashes Lymph: no cervical or submandibular adenopathy Thyroid: no nodules or thyromegaly Mouth: moist mucous membranes, no oral ulcers Eyes: normal sclerae Heart: regular rate, no murmurs, rubs or gallops Lungs: clear to auscultation b/l Spine: No SI joint tenderness. Roddy's test 16 cm. Non tender. Musculoskeletal: No active synovitis. No evidence of enthesitis. FROM in all joints. ABBY test negative. Normal oropharynx. L elbow with dry, scaly, skin. No erythema. No new lesions. Nail pitting in hands. LABS: 09/16/2017 CBC, WNL, CMP, WNL Magnesium 1.8 Albumin 4.1 TRE 1:160 speckled pattern ESR 9 Ferritin 45, TIBC 348, iron 181, Repeated iron studies in October WNL T bili 1.3 (0.2-1.0) in September, always slightly elevated per patient. D. 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 Also with low back pain associated with stiffnessfor about 1 year. No known family history of ankylosing spondylitis, psoriasis, GI, problems, eye problems. Pain in the coccygeal area. No history of trauma, injury, fall. Does have nail pitting. ?? Based on history, exam, possible inflammatory nature of low back pain with significant stiffness inthe morning, stretching, rest help. Standing for long duration aggravates the low back pain. L elbow with dry scaly skin. Nail pitting. Positive response to NSAID's (80%). Mother has psoriasis, only in L elbow/forearm. No evidence of /back pain. Repeat TRE negative. In October, Started naproxen 500 mg bid. Continue. Encouraged back stretching and strengthening exercises as tolerated. History, nail pitting, ? Dry scaly skin L elbow, pending imaging studies (xray SI joint, MRI SI joint to r/o sacroiliitis) ? Refer to Dermatology/[facility]za group for evaluation when rash worsens. Spondylarthritis pending Imaging, xray SI joints, MRI SI joints. Explained patient to continue with the naproxen pending imaging studies. Hold off on considering biologicals such as Enbrel, Humira at this point. Would like to continue with NSAIDs given positive response. Patient in understanding and agreeable. RTC in 3 months. documented in this encounter Plan of Treatment Not on file documented as of this encounter Visit Diagnoses Diagnosis Inflammatory back pain halfway current use of non-steroidal anti-inflammatories (NSAID) Encounter for long-term (current) use of non-steroidal anti-inflammatories Nail pitting Other specified disease of nail Family history of psoriasis in mother documented in this encounter Care Teams Drone Pilot Relationship Specialty Start Date End Date Dina Maciel APRN [address] [place] [address] PCP - General Family Medicine 09/23/17 documented as of this encounter
== END ==
PROVIDERS: PCP Nurse Practitioner Family; Visit Provider Obstetrics & Gynecology
DX: R92.8 Other abnormal and inconclusive findings on diagnostic imaging of breast (principal); R92.333 Mammographic heterogeneous density, bilateral breasts
CPT/HCPCS: 77062; 77066; G0279

== ENCOUNTER 2024-04-29 12:55 | Outpatient (CLI) | payer BC, SELFPAY ==
[2024-04-29 12:55] LABS: TSH (W/Ref FT4) 1.51 uIU/mL (0.36-3.74)
--- OUTSIDE RECORDS SUMMARY | 2024-04-29 12:56 | XMS_ITS | Encounter Summary ---
[place] [address] Care Team Providers Care Candy Vendor Name Role Phone Dina Maciel APRN Primary Care Provider [phone] Encounter Details Date Type Department Care Team (Late st Contact Info) Description 11/28/2017 10:00 AM EDT Office [place] [id number] Xenia Resendez MD Inflammatory back pain; senior living current use of non-steroidal anti-inflammatories (NSAID); Nail [...] form. No smoking, alcohol or drug use. 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 ?? 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
--- OUTSIDE RECORDS SUMMARY | 2024-04-29 12:56 | XMS_ITS | Encounter Summary ---
Author Organization [facility] [place] [address] Care Team Providers Care Precision Mechanical Instrument Maker Name Role Phone Dina Maciel APRN Primary Care Provider [phone] [phone] Encounter Details Date Type Department Care Team (Latest Contact Info) Description 11/28/2017 10:36 AM EDT - 11/28/2017 11:59 PM EDT Hospital Encounter XRay at [address] [place] [address] Xenia Resendez MD Chronic midline low back pain without sciatica [...] sciatica documented in this encounter Care Teams Precision Mechanical Instrument Maker Relationship Specialty Start Date End Date Dina Maciel APRN [address] [place] [address] PCP - General Family Medicine 09/23/17 documented as of this encounter
--- OUTSIDE RECORDS SUMMARY | 2024-04-29 12:56 | XMS_ITS | Encounter Summary ---
Author Organization [facility] Address [facility] [place] [address] Care Team Providers Care 3D Technologist Name Role Phone Dina Maciel APRN Primary Care Provider [phone] Encounter Details Date Type Department Care Team (Latest Contact Info) Description 10/29/2017 12:28 PM EDT - 10/29/2017 11:59 PM EDT Hospital Encounter XRay at [address] [place] [address] Xenia Resendez MD Chronic midline low back [...] sciatica documented in this encounter Care Teams 3D Technologist Relationship Specialty Start Date End Date Dina Maciel APRN [address] [place] [address] PCP - General Family Medicine 09/23/17 documented as of this encounter
--- OUTSIDE RECORDS SUMMARY | 2024-04-29 12:56 | XMS_ITS | Clinical Summary ---
Author Organization [facility] [place] [address] Care Team Providers Care Fingerer Name Role Phone Dina Maciel APRN Primary Care Provider [phone] [phone] Allergies No known active allergies Medications Medication Sig Dispensed Refills Start Date End Date Status naproxen (NAPROSYN) 500 mg Tablet Take 1 tablet by mouth 2 times daily (with meals). 60 tablet 3 10/29/2017 Active Additional Information Patient not taking.Reported on 12/06/2020 vitamin with [id number] Tablet Take by mouth. Active Immunizations Name Administration Dates Next Due DTaP 01/08/2017 Hepatitis B, Unspecified Formulation 07/20/1998, 01/30/1998,12/22/1997 MMR Vaccine LIVE 12/22/1997,01/18/1988 Polio Inactivated (IPOL) 09/27/1991 Social History Tobacco Use Types Packs/Day Years [...] Date Last Done Comments HIV screen 2004 HPV test 2016 PAP Smear 2016 Covid-19 Vaccine (1 - 2023- season) 2023 Influenza (Flu) vaccine (1 o f 1 - Influenza standard series) 12/07/2023 Tetanus/Diphtheria/Pertussis Vaccines (2 - Tdap) 01/0801/08/2017 Hepatitis C Screening Completed 10/29/2017 Procedures Procedure Name Priority Date/Time Associated Diagnosis Comments HEPATITIS C ANTIBODY Routine 10/29/2017 12:56 PM EDT Chronic fatigue Chronic midline low back pain without sciatica from Last 3 Months or Most Recently Relevant to Health Maintenance Results * Hepatitis C Antibody (10/29/2017 12:56 PM EDT) Hepatitis C Antibody Negative Negative [facility] Blood specimen (specimen) 10/29/2017 12:56 PM EDT 10/29/2017 1:04 PM EDT Narrative Resulting Agency Comment Spec In Lab Xenia Resendez MD CHEMISTRY ORDERABLES [facility] [place] [phone] from Last 3 Months or Most Recently Relevant to Health Maintenance Care Teams Fingerer Relationship Specialty Start Date End Date Dina Maciel APRN [address] [place] [address] PCP - General Family Medicine 09/23/17
--- OUTSIDE RECORDS SUMMARY | 2024-04-29 12:56 | XMS_ITS | Encounter Summary ---
Author Organization [facility] Address [facility] [place] [address] Care Team Providers Care Marine Fisheries Technician Name Role Phone Dina Maciel APRN Primary Care Provider [phone] [phone] Reason for Visit * Reason Comments Skin Lesion * Consultation (Routine) - Closed Specialty Diagnoses / Procedures Referred By Contguilherme t Referred To Contact Dermatology Diagnoses Melanocytic nevi, unspecified Change in Skin Mole; New Patient-Notes Received Procedures Consult Vielka Riojas [address] [place] [address] [facility] Dermatology [address] [place] [address] Referral ID Status Reason Start Date Expiration Date Visits Re quested Visits Authorized [id number] Closed 11/09/2020 11/09/2021 1 1 Encounter Details Date Type Department Care Team (Late st Contact Info) Description 12/06/2020 4:40 PM EDT Office Visit Dermatology at [facility] [address] [place] [address] Simin Haskins MD [facility] [place] [address] Multiple benign nevi; Hemangioma, unspecified [...] cm reilly plaque right parietal scalp Right alevism at the hairline Medications: Reviewed in eD-H Allergies: Reviewed in eD-H Skin Examination: Focused skin examination of the scalp was normal with the exception of the findings below Assessment/Plan 1. Benign Nevi (Scalp) - including 0.8 cm reilly plaque right parietal scalp x1, right alevism at the hairline x1, right near the [...] ??? N/A RTC: PRN []Note routed to special education secretary []Recall has been placed in scheduling [...] and signed by: Simin Haskins MD Dermatology [facility] documented in this encounter Plan of Treatment Not on file documented as of this encounter Visit Diagnoses Diagnosis Multiple benign nevi Benign neoplasm of skin, site unspecified Hemangioma, unspecified site documented in this encounter Care Teams Marine Fisheries Technician Relationship Specialty Start Date End Date Dina Maciel, FIELD MECHANIC/SITE LEAD [address] [place] [address] PCP - General Family Medicine 09/23/17 documented as of this encounter
--- OUTSIDE RECORDS SUMMARY | 2024-04-29 12:56 | XMS_ITS | Encounter Summary ---
Author Organization [facility] Address [facility] [place] [address] Care Team Providers Care Outlet Manager Name Role Phone Dina Maciel APRN Primary Care Provider [phone] [phone] Reason for Visit * Reason Comments Family History * Consultation (Routine) - Closed Specialty Diagnoses / Procedures Referred By Contac t Referred To Contact Obstetrics and Gynecology Diagnoses FAMILY HX POTTER SYNDROME, NEUROLOGIC CONDITION Vielka Gallardo, CHIKIS [address] [place] [address] [place] [address] [facility] [place] [place] [employer] [address] [place] [address] Referral ID Status Reason Start Date Expiration Date V isits Requested Visits Authorized [id number] Closed Consult, [facility] PCP Updated and/or Approved 11/14/2020 11/14/2021 1 1 Encounter Details Date Type Department Care Team (Latest Contact Info) Description 11/20/2020 9:00 AM EDT TH Visit (TeleHealth) Obstetrics [place] [address] Rachel Brantley, [facility] [place] [address] Hereditary familial disease affecting management [...] this encounter Progress Notes * Rachel Brantley, [facility] - 11/20/2020 9:00 AM EDT Reproductive Genetic Counseling Note Sierra Mcconnell is a 35 y.o. female currently at 16w5d gestation. I met with Sierra for a 30 minute genetic counseling video visit. She was unexpectedly located in [place], where she wasvisiting her mother. Referring Provider: Vielka Gallardo CNM Chief Complaint Patient presents with ??? Family History Consanguinity was denied. Patient's last menstrual period was 07/26/2020 (exact date). Estimated Date of Delivery: 05/02/21 based on LMP and supported by ultrasound (09/20/20 = 8.0 weeks) Completed Screening Test Result ??? Aneuploidy screen - [place] Low risk for trisomies 13, 18, 21. [...] antepartum documented in this encounter Care Teams Outlet Manager Relationship Specialty Start Date End Date Dina Maciel APRN [address] [place] [address] PCP - General Family Medicine 09/23/17 documented as of this encounter
--- OUTSIDE RECORDS SUMMARY | 2024-04-29 12:57 | XMS_ITS | Encounter Summary ---
Author Organization [facility] Address [address] [place] [address] Care Team Providers Care Art Professor Name Role Phone Unknown, Provider Primary Care Provider Mary hardy Encounter Details Date Type Department Care Team (Late st Contact Info) Description 10/11/2020 Lab Requisition [facility] Pathology & Laboratory Medicine - [facility] [address] [place] [address] Outr Resulting Lab, Provider Social History Tobacco Use Types Packs/Day Years Used Date Smoking Tobacco: Never Assessed Comments Unknown Sex and Gender Information Value Date Recorded Sex Assigned at Not on file Legal Sex Female 15:55 EDT Gender Identity Not on file Sexual Orientation [...] Ab Positive See Note 10/12/2020 12:45 EDT [facility] Comment:Presence of detectab le Varicella Zoster virus IgG antibodies. Blood VENOUS BLOOD / Unknown 10/11/2020 15:00 EDT 10/11/2020 20:46 EDT us Provider Outr Resulting Lab IMMUNOLOGY AND SEROL OGY ORDERABLES Final Result Performing Organization Address [facility] Co de Phone Number [facility] [address] [place] [address] * RUBELLA IGG ANTIBODY (10/11/2020 15:00 EDT) Rubella IgG Ab Positive See Note 10/12/2020 11:02 EDT [facility] Comment:Positive for IgG ant ibodies to Rubella virus. Blood VENOUS BLOOD / Unknown 10/11/2020 15:00 EDT 10/11/2020 20:46 EDT us Provider Outr Resulting Lab CHEMISTRY & BLOOD GA S ORDERABLES Final Result Performing Organization Address [facility] Co de Phone Number [facility] [address] [place] [address] documented in this encounter Visit Diagnoses Not on filedocumented in this encounter Care Teams Art Professor Relationship Specialty Start Date End Date Unknown, Provider, PCP - General 01/05/16 documented as of this encounter
--- OUTSIDE RECORDS SUMMARY | 2024-04-29 12:57 | XMS_ITS | Encounter Summary ---
Author Organization [facility] Address [address] [place] [address] Care Team Providers Care Electrical Assistant Name Role Phone Unknown, Provider MD Primary Care Provider Unava ilable Reason for Visit * Reason Onset Date Comments Other 04/01/2018 triage for appt Encounter Details Date Type Department Care Team (Late st Contact Info) Description 04/01/2018 Telephone [facility] Orthopedic Surgery - [facility] [address] [place] [address] Domenic Harris MD [address] [place] [address] Other (triage for appt) Social History Tobacco [...] mis stepped on stairs and fell on 12-24-18, went to ER at [facility] in [facility], was told she had fx'd two bones in 3 place and needed sx, spoke w/ortho there and states they told her she needs sx in 7-10 days. Pt lives in [facility] and can't get in with anyone to look at her. Please triage Notes, pt has disc but is several hours away. Hosp in [place] can't send electronically. Sierra can be reached at [phone] Referral started waiting for notes to be fx'd and reviewed. documented in this encounter Plan of Treatment Not on file documented as of this encounter Visit Diagnoses Not on filedocumented in this encounter Care Teams Electrical Assistant Relationship Specialty Start Date End Date Unknown, Provider, PCP - General 01/05/16 documented as of this encounter
--- OUTSIDE RECORDS SUMMARY | 2024-04-29 12:57 | XMS_ITS | Encounter Summary ---
Author Organization [facility] Address [address] [place] [address] Care Team Providers Care Server Assistant Name Role Phone Unknown, Provider Primary Care Provider Mary ilhelga Encounter Details Date Type Department Care Team (Late st Contact Info) Description 12/03/2019 Lab Requisition [facility] Pathology & Laboratory Medicine - [facility] [address] [place] [address] Outr Resulting Lab, Provider Social History Tobacco [...] gonorrhoeae Result Negative Negative 12/06/2019 13:40 EDT [facility] Chlamydia trachomatis Result Negative Negative 12/06/2019 13:40 EDT [facility] Papanicolaou smear specimen (specimen) CERVIX UTERI STRUCTURE / Unknown 12/02/2019 10:00 EDT 12/04/2019 17:15 EDT us Provider Outr Resulting Lab MICROBIOLOGY - GENER AL ORDERABLES Final Result [facility] [address] [place] [address] documented in this encounter Visit Diagnoses Not on filedocumented in this encounter Care Teams Server Assistant Relationship Specialty Start Date End Date Unknown, Provider, PCP - General 01/05/16 documented as of this encounter
--- OUTSIDE RECORDS SUMMARY | 2024-04-29 12:57 | XMS_ITS | Referral Summary ---
Author Organization [facility] Address [address] [place] [address] Care Team Providers Care Vehicle Sales Professional Name Role Phone Unknown, Provider MD Primary Care Provider Unava ilable Social History Tobacco Use Types Packs/Day Years [...] C Antibody Negative Negative 10/12/2020 10:40 EDT [facility] Blood VENOUS BLOOD / Unknown 10/11/2020 15:00 EDT 10/11/2020 20:46 EDT us Provider Outr Resulting Lab CHEMISTRY & BLOOD GA S ORDERABLES Final Result [facility] [address] [place] [address] from Last 3 Months or Most Recently Relevant to Health Maintenance Insurance [facility] Address: [address] [address] Care Teams Vehicle Sales Professional Relationship Specialty Start Date End Date Unknown, Provider, PCP - General 01/05/16
--- OUTSIDE RECORDS SUMMARY | 2024-04-29 12:57 | XMS_ITS | Encounter Summary ---
Author Organization [facility] Address [address] [place] [address] Care Team Providers Care Tours Captain Name Role Phone Unknown, Provider Primary Care Provider Mary hardy Encounter Details Date Type Department Care Team (Late st Contact Info) Description 10/11/2020 Lab Requisition [facility] Pathology & Laboratory Medicine - [facility] [address] [place] [address] Outr Resulting Lab, Provider Social History Tobacco [...] Surface Ag Negative Negative 10/12/2020 10:32 EDT [facility] Blood VENOUS BLOOD / Unknown 10/11/2020 15:00 EDT 10/11/2020 20:46 EDT us Provider Outr Resulting Lab CHEMISTRY & BLOOD GA S ORDERABLES Final Result Performing Organization Address City/[facility]/ZIP Co de Phone Number [facility] [address] [place] [address] * HEPATITIS C AB W REFLEX TO HCV RNA BY PCR (10/11/2020 15:00 EDT) Hep C Antibody Negative Negative 10/12/2020 10:40 EDT [facility] Blood VENOUS BLOOD / Unknown 10/11/2020 15:00 EDT 10/11/2020 20:46 EDT us Provider Outr Resulting Lab CHEMISTRY & BLOOD GA S ORDERABLES Final Result Performing Organization Address [facility] Co de Phone Number [facility] [address] [place] [address] documented in this encounter Visit Diagnoses Not on filedocumented in this encounter Care Teams Tours Captain Relationship Specialty Start Date End Date Unknown, Provider, PCP - General 01/05/16 documented as of this encounter
--- OUTSIDE RECORDS SUMMARY | 2024-04-29 12:57 | XMS_ITS | Encounter Summary ---
Author Organization [facility] Address [address] [place] [address] Care Team Providers Care Research Nutritionist Name Role Phone Unknown, Provider Primary Care Provider Unava ilable Encounter Details Date Type Department Care Team (Late st Contact Info) Description 01/04/2016 Results Only [facility] [phone] Bennett Agrawal, FABRIC COATING SUPERVISOR [address] [facility] [address] [place] [address] Social History Tobacco Use Types Packs/Day Years [...] ? SIERRA MCCONNELL ? Accession #: ? [id number] ? : ? 1985 (Age: 30) ??F ?Collect Date: ? 01/04/2016 ? Location: ? [facility] ? Receive Date: ? 01/08/2016 ? Provider: BENNETT AGRAWAL FABRIC COATING SUPERVISOR Copy to: ? Final Report SPECIMEN ADEQUACY [...] types 16,18,31,33,35, 39,45,51,52,56,58, 59,66, and 68 by cone runner mediated amplification. Comments Document reviewed and electronically signed by: ? System Interface ? Report date: 01/11/2016 By the signature above, the attending physician certifies that he/she has personally conducted a gross and/or microscopic examination of the described specimens and rendered or confirmed the above diagnosis. End of Report [facility] 01/04/2016 01/08/2016 us Bennett Agrawal FABRIC COATING SUPERVISOR PATHOLOGY ORDERABLES Renae farley Result [facility] [address] [place] [address] documented in this encounter Visit Diagnoses Not on filedocumented in this encounter Care Teams Research Nutritionist Relationship Specialty Start Date End Date Unknown, Provider, PCP - General 01/05/16 documented as of this encounter
--- OUTSIDE RECORDS SUMMARY | 2024-04-29 12:57 | XMS_ITS | Encounter Summary ---
Author Organization [facility] Address [address] [place] [address] Care Team Providers Care Mortgage Manager Name Role Phone Unknown, Provider Primary Care Provider Unava ilable Encounter Details Date Type Department Care Team (Late st Contact Info) Description 05/02/2021 Lab Requisition [facility] Pathology & Laboratory Medicine - [address] [address] [address] [phone] Encounter for other general examination Social History [...] EST) Screen Test NEGATIVE 022 17:53 EST [facility] Comment:CALLED RESULTS TO DO JONE LEE AT [facility] AND FAXED TO [phone] @ 17:52 05/02/2021. Blood VENOUS BLOOD / Unknown 05/02/2021 6:43 EST 05/02/2021 17:10 EST Maria A Harris [facility] TESTS Final Result Performing Organization Address City/State/[facility] Co de Phone Number [facility] [address] [place] [address] documented in this encounter Visit Diagnoses Diagnosis Encounter for other general examination documented in this encounter Care Teams Mortgage Manager Relationship Specialty Start Date End Date Unknown, Provider, PCP - General 01/05/16 documented as of this encounter
--- OUTSIDE RECORDS SUMMARY | 2024-04-29 12:57 | XMS_ITS | Encounter Summary ---
[place] [address] Care Team Providers Care Ecological Modeler Name Role Phone Dina Maciel APRN Primary Care Provider [phone] Reason for Visit * Consultation (Routine) - Closed Specialty Diagnoses / Procedures Referred By Contguilherme t Referred To Contact Rheumatology Diagnoses FATIGUE AND ELEVATED TRE Dina Maciel APRN [address] [place] [address] [facility] Rheumatology [address] [place] [id number] Referral ID Status Reason Start Date Expiration Date V isits Requested Visits Authorized [id number] Closed Consult, Test & [facility] 09/23/2017 09/23/2018 1 1 Encounter Details Date Type Department Care Team (Late st Contact Info) Description 10/29/2017 11:00 AM EDT Office [place] [phone] Xenia Resendez MD Chronic fatigue; Chronic midline low back pain [...] your doctor if you can take an hedl-mty-[id number] medicine. What else can you do? ?? [...] Back pain can lead to a vicious enterprise: Distress about the pain tenses the muscles in your back, which in turn causes more pain. Learn how to relax your mind and your muscles to lower your stress. Where can you learn more? Visit our health information library at [email or web address]. You can also view health information on [employer], your personal patient account. Log in or sign uptoday. Enter Q517 in the search box to learn more about Learning About Relief for Back Pain. Current as of: March 05, 2017 Content Version: 11.7 ?? [id number] [employer]. Care instructions adapted under license by [facility]. If you have questions about a medical condition or this instruction, always ask your healthcare professional. [employer] disclaims any warranty or liability for your [...] form. No smoking, alcohol or drug use. 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 Family [...] back pain without sciatica COMPREHENSIVE METABOLIC PANEL Routine 10/29/2017 12:56 PM EDT Chronic fatigue [...] projected in the mid pelvis. Visualized sacral naznain intact. Asymmetric sclerosis about the left sacral [...] * Differential, Automated (10/29/2017 12:56 PM EDT) Pathologist [facility] Neutrophil % 64.6 % [facility] Neutrophil Absolute 4.75 1.70 - 6.10 x10(3)/[facility] Lymph % 26.6 % [facility] Lymphocytes Abs 2.0 0.9 - 3.2 x10(3)/[facility] Monocyte % 7.3 % [facility] Monocyte Abs 0.5 0.3 - 0.9 x10(3)/[facility] Eos % 0.8 % [facility] Eosinophils Abs 0.1 0.0 - 0.4 x10(3)/[facility] Basophil % 0.4 % [facility] Baso Absolute 0.0 0.0 - 0.1 x10(3)/[facility] Immature Gran % 0.30 % [facility] Comment: Immature granulocytes(IG's)percentage and absolute count will include metamyelocytes, myelocytes, and promyelocytes. Blood smears from CBCs yielding IG's will be scanned manually for concordance. If this scan disagrees with the automated IG or if promyelocytes are noted, a manual differential will be performed. Immature Gran Absolute 0.02 0.00 - 0.04 x10(3)/[facility] Blood specimen (specimen) 10/29/2017 12:56 PM EDT 10/29/2017 1:04 PM EDT Narrative Resulting Agency Comment Spec In Lab Xenia Resendez MD HEMATOLOGY ORDERABLE S [facility] [place] [address] * (ABNORMAL) Hemogram (10/29/2017 12:56 PM EDT) White Blood Cell 7.7 4.0 - 9.5 x10(3)/[facility] Red Blood Cell 4.33 4.00 - 5.21 x10(6)/mc L [facility] Hemoglobin 14.3 11.7 - 15.5 gm/dL [facility] Hematocrit 39.3 35.7 - 45.8 % [facility] Mean Cell Volume 90.8 82.6 - 94.4 fL [facility] Mean Cell Hemoglobin 33.0(H) 27.1 - 32.0 pg [facility] Mean Cell Hemoglobin Concentration 36.4(H) 31.7 - 35.0 gm/dL [facility] Platelet 212 145 - 357 x10(3)/mc L [facility] RDW Standard Deviation 39.0 37.0 - 46.0 fL [facility] RDW coefficient of variation 11.8 11.5 - 14.1 % [facility] Mean Platelet Volume 10.6 7.6 - 12.9 fL [facility] NRBC% auto 0.0 % [facility] NRBC Absolute 0.000 0.000 - 0.000 x10(3)/mc L [facility] Blood specimen (specimen) 10/29/2017 12:56 PM EDT 10/29/2017 1:04 PM EDT Narrative Resulting Agency Comment Spec In Lab Xenia Resendez MD [place] [address] * CK (10/29/2017 12:56 PM EDT) Creatine Kinase 59 0 - 160 unit/L [facility] Blood specimen (specimen) 10/29/2017 12:56 PM EDT 10/29/2017 1:04 PM EDT Narrative Resulting Agency Comment Spec In Lab Xenia Resendez MD CHEMISTRY ORDERABLES [facility] [place] [address] * (ABNORMAL) Comprehensive metabolic panel (non-fasting) (10/29/2017 12:56 PM EDT) Glucose 89 65 - 199 mg/dL [facility] Comment:Diabetes: >=200 mg/d L plus symptoms Blood Urea Nitrogen 12 8 - 18 mg/dL [facility] Creatinine 0.71 0.70 - 1.20 mg/dL [facility] Sodium 135 135 - 145 mmol/L [facility] Potassium 3.9 3.5 - 5.0 mmol/L [facility] Comment: Please note: ??Patients with WBC >100,000 may have falsely elevated Potassium levels. ??For accurate Potassium quantification in these patients send serum separator tube (gold top) for subsequent determinations. ??Contact the Clinical Chemistry Laboratory if there are any questions. Chloride 97(L) 98 - 107 mmol/L [facility] Carbon Dioxide 24 22 - 31 mmol/L [facility] Anion Gap 14 5 - 15 mmol/L [facility] Calcium 9.5 8.5 - 10.5 mg/dL [facility] Protein, Total 7.4 6.1 - 8.0 gm/dL [facility] Albumin 4.8 3.2 - 5.2 gm/dL [facility] Aspartate Aminotransferase 16 0 - 30 unit/L [facility] Alanine Aminotransferase 17 0 - 30 unit/L [facility] Alkaline Phosphatase 54 40 - 104 unit/L [facility] Bilirubin, Total 1.0 0.2 - 1.3 mg/dL [facility] Est Glomerular Filtration Rate 113 >=60 mL/min/1. 73 m?? [facility] Comment: The eGFR was calculated using the CKD-EPI equation. As with all creatinine based estimates of kidney function, eGFR values calculated with the CKD-EPI equation are not accurate in patients with acute kidney failure, extremes of body mass or the acutely ill. http://[employer] Diabetes/DHnkdep http://[employer] Diabetes/DHMCnkf eGFR 132 >=60 mL/min/1. 73 m?? [facility] Comment: The eGFR was calculated using the CKD-EPI equation. As with all creatinine based estimates of kidney function, eGFR values calculated with the CKD-EPI equation are not accurate in patients with acute kidney failure, extremes of body mass or the acutely ill. http://[employer] Diabetes/DHnkdep http://[employer] Diabetes/DHMCnkf Blood specimen (specimen) 10/29/2017 12:56 PM EDT 10/29/2017 1:04 PM EDT Narrative Resulting Agency Comment Spec In Lab Xenia Resendez MD CHEMISTRY ORDERABLES Performing Organization Address [facility]/ZIP Co de Phone Number [facility] [place] [address] * DNA Antibody (Double-Stranded) (10/29/2017 12:56 PM EDT) DNA Ab (DS) Neg Neg [facility] Blood specimen (specimen) 10/29/2017 12:56 PM EDT 10/30/2017 7:07 AM EDT Narrative Resulting Agency Comment Spec In Lab Xenia Resendez MD LAB SEND OUT ORDERAB LES Performing Organization Address [facility]/ZIP Co de Phone Number [facility] [place] [address] * Extractable Nuclear Antigen (SAMMI) Ab (10/29/2017 12:56 PM EDT) SAMMI Ab Test ?Result ?Flag ??Unit ??RefValue Ab to Extractable Nuclear Ag Eval,S ??SS-A/Ro Ab, IgG, S ?<0.2 ?U ? <1.0 (Negative) ??SS-B/La Ab, IgG, S ?<0.2 ?U ? <1.0 (Negative) ??Sm Ab, IgG, S ? <0.2 ?U ? <1.0 (Negative) ??MECHANICAL SYSTEMS DESIGN ENGINEER Ab, IgG, S ?0.3 ? U ? <1.0 (Negative) ??Scl 70 Ab, IgG, S ? <0.2 ?U ? <1.0 (Negative) ??Roya 1 Ab, IgG, S ? <0.2 ?U ? <1.0 (Negative) ?Test Performed by: ?[facility] ?[address] [place], [place] [id number] [place] [address] LABORATORY Blood specimen (specimen) 10/29/2017 12:56 PM EDT 10/29/2017 2:29 PM EDT Narrative Resulting Agency Comment Spec In Lab Xenia Chaparala MD LAB SEND OUT ORDERAB LES [facility] [place] [address] * TRE (10/29/2017 12:56 PM EDT) TRE Neg Neg [facility] Blood specimen (specimen) 10/29/2017 12:56 PM EDT 10/30/2017 7:07 AM EDT Narrative Resulting Agency Comment Spec In Lab Xenia Resendez MD LAB SEND OUT ORDERAB LES Performing Organization Address [facility] Co de Phone Number [facility] [place] [address] * QuantiFERON-TB Gold (10/29/2017 12:56 PM EDT) Quantiferon Nil 0.021 IU/mL [facility] QFT TB Ag-Nil 0.004 IU/mL [facility] Quantiferon Mitogen-Nil >10.000 IU/mL [facility] Quantiferon-TB Gold Negative Negative [facility] Quantiferon Tb Interp M. tuberculosis (TB) infection NOT likely [...] immune function, or other individual immunological factors. [facility] Comment: ?The performance of [...] Resendez MD CHEMISTRY ORDERABLES Performing Organization Address [facility] Co de Phone Number [facility] [place] [address] * Hepatitis C Antibody (10/29/2017 12:56 PM EDT) Pathologist [facility] Hepatitis C Antibody Negative Negative [facility] Blood specimen (specimen) 10/29/2017 12:56 PM EDT 10/29/2017 1:04 PM EDT Narrative Resulting Agency Comment Spec In Lab Xenia Resendez MD CHEMISTRY ORDERABLES Performing Organization Address [facility] Co de Phone Number [facility] [place] [address] * Hepatitis B Surface Antibody (10/29/2017 12:56 PM EDT) Pathologist [facility] Hepatitis B Surface Antibody, Quantitative >1,000.0 IU/L [facility] Comment: HepB Surface Ab Quant: Unvaccinated: < 8.5 IU/L Vaccinated: > 11.5 IU/L Hepatitis B Surface Antibody Positive [facility] Comment: Patient is considered to be immune to HBV infection. Expected Results: Vaccinated: Positive Unvaccinated: Negative Blood specimen (specimen) 10/29/2017 12:56 PM EDT 10/29/2017 1:04 PM EDT Narrative Resulting Agency Comment Spec In Lab Xenia Resendez MD CHEMISTRY ORDERABLES Performing Organization Address City/[facility]/ZIP Co de Phone Number [facility] [place] [address] * Hepatitis B Surface Antigen (10/29/2017 12:56 PM EDT) Hepatitis B Surface Antigen Negative Negative [facility] Blood specimen (specimen) 10/29/2017 12:56 PM EDT 10/29/2017 1:04 PM EDT Narrative Resulting Agency Comment Spec In Lab Xenia Resendez MD CHEMISTRY ORDERABLES Performing Organization Address City/[facility]/ZIP Co de Phone Number [facility] [place] [address] * Hepatitis B Core Antibody, Total (10/29/2017 12:56 PM EDT) Hepatitis B Core Antibody Negative Negative [facility] Blood specimen (specimen) 10/29/2017 12:56 PM EDT 10/29/2017 1:04 PM EDT Narrative Resulting Agency Comment Spec In Lab Xenia Resendez MD CHEMISTRY ORDERABLES Performing Organization Address City/[facility] Co de Phone Number [facility] [place] [address] * HLA-B27 (10/29/2017 12:56 PM EDT) HLA-B27 Negative [facility] HLA B27 Interpretation HLA B27 antigen was not detected. Method: Flow Cytometry Reference: 1.Evelyn DA, Calvin CRISTINA, Anthony Gregorio, et al: Ankylosing spondylitis and HLA-27. Lancet 1973;1:904-907 2.Gil Downey FERNANDEZ: HLA-B27 typing by use of flow cytofluorometr y. Clin Chem 1987;33:1619-1 623 [facility] White Blood Cell 7.7 4.0 - 9.5 x10(3)/m cL [facility] Blood specimen (specimen) 10/29/2017 12:56 PM EDT 10/29/2017 1:04 PM EDT Narrative Resulting Agency Comment Spec In Lab Xenai Resendez MD HEMATOLOGY ORDERABLE S Performing Organization Address City/[facility]/ZIP Co de Phone Number [facility] [place] [address] * Cyclic Citrullinated Peptide (10/29/2017 12:56 PM EDT) Cyclic Citrulline Peptide <0.5 <=4.9 unit/mL [facility] Comment: An updated CCP assay reagent was implemented 07/18/16. Please note the modified reference interval. Blood specimen (specimen) 10/29/2017 12:56 PM EDT 10/29/2017 1:04 PM EDT Narrative Resulting Agency Comment Spec In Lab Xenia Resendez MD CHEMISTRY ORDERABLES Performing Organization Address [facility] Co de Phone Number [facility] [place] [address] * Rheumatoid factor, quant (10/29/2017 12:56 PM EDT) Rheumatoid Factor <10 <=14 IU/mL [facility] Blood specimen (specimen) 10/29/2017 12:56 PM EDT 10/29/2017 1:04 PM EDT Narrative Resulting Agency Comment Spec In Lab Xenia Resendez MD CHEMISTRY ORDERABLES Performing Organization Address [facility] Co de Phone Number [facility] [place] [address] * CRP, acute inflammation (10/29/2017 12:56 PM EDT) C-Reactive Protein 0.5 <=4.9 mg/L [facility] Blood specimen (specimen) 10/29/2017 12:56 PM EDT 10/29/2017 1:04 PM EDT Narrative Resulting Agency Comment Spec In Lab Xenia Resendez MD CHEMISTRY ORDERABLES Performing Organization Address City/[facility]/ZIP Co de Phone Number [facility] [place] [address] * Sedimentation rate (10/29/2017 12:56 PM EDT) Sedimentation Rate Automated 6 0 - 20 mm/hr [facility] Blood specimen (specimen) 10/29/2017 12:56 PM EDT 10/29/2017 1:04 PM EDT Narrative Resulting Agency Comment Spec In Lab Xenia Resendez MD HEMATOLOGY ORDERABLE S Performing Organization Address [facility] Co de Phone Number [facility] [place] [address] * XR Lumbar Spine 2 Or 3 [...] sciatica documented in this encounter Care Teams Ecological Modeler Relationship Specialty Start Date End Date Dina Maciel APRN [address] [place] [address] PCP - General Family Medicine 09/23/17 documented as of this encounter
--- OUTSIDE RECORDS SUMMARY | 2024-04-29 12:57 | XMS_ITS | Encounter Summary ---
Author Organization [facility] Address [address] [place] [address] Care Team Providers Care Soiled Linen Distributor Name Role Phone Unknown, Provider Primary Care Provider Mary hardy Encounter Details Date Type Department Care Team (Late st Contact Info) Description 12/02/2019 Lab Requisition [facility] Pathology & Laboratory Medicine - [address] [address] Outr Resulting Lab, Provider Social History Tobacco [...] C Antibody Negative Negative 12/06/2019 12:25 EDT [facility] Blood VENOUS BLOOD / Unknown 12/02/2019 10:25 EDT 12/03/2019 16:36 EDT us Provider Outr Resulting Lab CHEMISTRY & BLOOD GA S ORDERABLES Final Result [facility] [address] [place] [address] documented in this encounter Visit Diagnoses Not on filedocumented in this encounter Care Teams Soiled Linen Distributor Relationship Specialty Start Date End Date Unknown, Provider, PCP - General 01/05/16 documented as of this encounter
--- OUTSIDE RECORDS SUMMARY | 2024-04-29 12:57 | XMS_ITS | Encounter Summary ---
Author Organization [facility] Address [address] [place] [address] Care Team Providers Care Signing Agent Name Role Phone Unknown, Provider Primary Care Provider Unava ilable Encounter Details Date Type Department Care Team (Late st Contact Info) Description 01/31/2020 Lab Requisition [facility] Pathology & Laboratory Medicine - [facility] [address] [place] [address] [id number] Contact with and (suspected) exposure to other [...] CoV-2 Specimen Source Nasal 02/05/2020 0:16 EDT [facility] Patient Race Unknown 02/05/2020 0:16 EDT [facility] Patient Ethnicity Unknown 02/05/2020 0:16 EDT [facility] SARS-CoV-2 RNA Result Undetected Undetected 02/05/2020 0:16 EDT [facility] Comment: SARS-CoV-2 RNA absent. This result does not rule out COVID-19 in the patient, as the sensitivity of the test depends on the timing of the specimen collection and the quality of the specimen. Result should be correlated with patient's history and clinical presentation. Method Summary SEE NOTE 02/05/2020 0:16 EDT [facility] Comment: PKELM- This test uses the [employer] New Coronavirus Nucleic Acid Detection Kit ([employer] and is performed on the MyFit instrument and [employer] RubyRide 7500 Fast Real-Time PCR System. It has received Emergency Use Authorization (EUA) by the U.S. Food and Drug Administration, and is modified from the ct scan tech's instructions with a bridging study. Performance characteristics were verified by [facility] in a manner consistent with CLIA requirements. Fact sheets for this Emergency Use Authorization (EUA) can be found at the following links: https://www.fda.gov/media/157408/download for Healthcare Providers https://www.fda.gov/media/572461/download for Patients Test Performed by: [facility] [place] [address] Manager Cosmetics: Antonio Keene M.D. Ph.D.; CLIA# [id number] Swab NASAL / Unknown Swab / Unknown 01/31/2020 9:45 EDT 01/31/2020 21:20 EDT us Analesa Soledad Muir [facility] MICROBIOLOGY - NERAL ORDERABLES Final Result [facility] [address] [place] [address] documented in this encounter Visit Diagnoses Diagnosis Contact with and (suspected) exposure to other viral communicable diseases documented in this encounter Care Teams Signing Agent Relationship Specialty Start Date End Date Unknown, Provider, PCP - General 01/05/16 documented as of this encounter
--- OUTSIDE RECORDS SUMMARY | 2024-04-29 12:57 | XMS_ITS | Encounter Summary ---
Author Organization [facility] Address [address] [place] [address] Care Team Providers Care Parts Assembler Name Role Phone Unknown, Provider Primary Care Provider Mary hardy Encounter Details Date Type Department Care Team (Late st Contact Info) Description 06/13/2021 Lab Requisition [facility] Pathology & Laboratory Medicine - [address] [address] Outr Resulting Lab, Provider Social History Tobacco [...] gonorrhoeae Result Negative Negative 06/14/2021 15:07 EST [facility] Chlamydia trachomatis Result Negative Negative 06/14/2021 15:07 EST [facility] Swab ENTIRE ENDOCERVIX / Unknown 06/12/2021 9:50 EST 06/13/2021 18:12 EST us Provider Outr Resulting Lab MICROBIOLOGY - GENER AL ORDERABLES Final Result [facility] [address] [place] [address] documented in this encounter Visit Diagnoses Not on filedocumented in this encounter Care Teams Parts Assembler Relationship Specialty Start Date End Date Unknown, Provider, PCP - General 01/05/16 documented as of this encounter
--- OUTSIDE RECORDS SUMMARY | 2024-04-29 12:57 | XMS_ITS | Encounter Summary ---
Author Organization [facility] Address [address] [place] [address] Care Team Providers Care Circular Ripsaw Operator Name Role Phone Unknown, Provider Primary Care Provider Unava ilable Encounter Details Date Type Department Care Team (Latest Contact Info) Description 12/06/2019 Lab Requisition [facility] Pathology & Laboratory Medicine - [facility] [address] [place] [address] Dina Maciel, BEHAVIORAL SCIENTIST [address] [facility] [address] [place] [address] Encounter for general adult medical examination without [...] Risk types, PCR Negative Negative 12/17/2019 15:16 T [facility] Comment:No E6 or E7 mRNA is detected from HPV types 16,18,31,33,35,39,45,51,52,56,58,59,66, and 68 by trials manager mediated amplification. Papanicolaou smear specimen (specimen) CERVIX UTERI STRUCTURE / Unknown 12/02/2019 10:00 EDT 12/16/2019 14:54 EDT us Dina Maciel BEHAVIORAL SCIENTIST MICROBIOLOGY - GENERAL OR DERABLES Final Result [facility] [address] [place] [address] * PAP TEST (12/02/2019 10:00 EDT) Specimens A. Cervix and/or Endocervix , ThinPrep Imaging System with Manual Evaluation 12/17/2019 15:16 [facility] Specimen Adequacy Satisfactory for Evaluation - transformation zone component present 12/17/2019 15:16 [facility] General Categorization Negative for intraepithelial lesion or malignancy 12/17/2019 15:16 [facility] Attestation . 12/17/2019 15:16 [facility] at 1516 Clinical History SEE ORDER COMMENTS 12/17/2019 15:16 [facility] HPV The result for the Human Papillomavirus (HPV) Detection-High Risk Types is Negative. No E6 or E7 mRNA is detected from HPV types 16,18,31,33,35,39 ,45,51,52,56,58,5 9,66, and 68 by trials manager mediated amplification.Iqra ting was performed on specimen [id number] and was resulted on 12/17/2019 1513 EDT by JACY, LAB INSTRUMENT RESULTS IN 12/17/2019 15:16 [facility] Performing Lab [facility] 12/17/2019 15:16 EDT [facility] Scanned Images 12/17/2019 15:16 EDT [facility] Papanicolaou smear specimen (specimen) CERVIX UTERI STRUCTURE / Unknown 12/02/2019 10:00 EDT 12/06/2019 11:07 EDT us Dina Maciel BEHAVIORAL SCIENTIST PATHOLOGY ORDERABLES Renae farley Result [facility] [address] [place] [address] documented in this encounter Visit Diagnoses Diagnosis Encounter for general adult medical examination without abnormal findings Unspecified general medical examination Encounter for screening for malignant neoplasm of cervix Screening for malignant neoplasm of the cervix Encounter for gynecological examination (general) (routine) without abnormal findings documented in this encounter Care Teams Circular Ripsaw Operator Relationship Specialty Start Date End Date Unknown, Provider, PCP - General 01/05/16 documented as of this encounter
--- OUTSIDE RECORDS SUMMARY | 2024-04-29 12:57 | XMS_ITS | Clinical Summary ---
Author Organization [facility] Address [address] [place] [id number] Care Team Providers Care Orchestra Teacher Name Role Phone Unknown, Provider MD Primary [...] - 19+ 3-dose series) 2005 COVID-19 Vaccine (2023- season) 2023 Hepatitis C Screen Completed 10/11/2020, 12/02/2019 Procedures Procedure Name Priority Date/Time Associated Diagnosis Comments HEPATITIS C AB W REFLEX TO HCV RNA BY PCR Routine 10/11/2020 15:00 EDT from Last 3 Months or Most Recently Relevant to Health Maintenance Results * HEPATITIS C AB W REFLEX TO HCV RNA BY PCR (10/11/2020 15:00 EDT) Hep C Antibody Negative Negative 10/12/2020 10:40 EDT [facility] Blood VENOUS BLOOD / Unknown 10/11/2020 15:00 EDT 10/11/2020 20:46 EDT us Provider Outr Resulting Lab CHEMISTRY & BLOOD GA S ORDERABLES Final Result [facility] [address] [place] [address] from Last 3 Months or Most Recently Relevant to Health Maintenance Insurance [facility] Address: [address] [phone] Care Teams Orchestra Teacher Relationship Specialty Start Date End Date Unknown, Provider, PCP - General 01/05/16
--- OUTSIDE RECORDS SUMMARY | 2024-04-29 12:57 | XMS_ITS | Encounter Summary ---
Author Organization [facility] Address [address] [place] [address] Care Team Providers Care Bean Sprout Grower Name Role Phone Unknown, Provider Primary Care Provider Mary hardy Encounter Details Date Type Department Care Team (Late st Contact Info) Description 10/11/2020 Lab Requisition [facility] Pathology & Laboratory Medicine - [facility] [address] [place], [place] [id number] Outr Resulting Lab, Provider Social History Tobacco [...] 4th Generation Negative Negative 10/12/2020 10:59 EDT [facility] Comment: If acute HIV-1 infection is suspected in a high risk ??patient, submit plasma specimen for HIV-1 RNA quantitation test. Fourth Generation assay performed on the Siemens Centaur. Blood VENOUS BLOOD / Unknown 10/11/2020 15:00 EDT 10/11/2020 20:46 EDT us Provider Outr Resulting Lab IMMUNOLOGY AND SEROL OGY ORDERABLES Final Result [facility] [address] [place] [address] documented in this encounter Visit Diagnoses Not on filedocumented in this encounter Care Teams Bean Sprout Grower Relationship Specialty Start Date End Date Unknown, Provider, PCP - General 01/05/16 documented as of this encounter
== END 2024-04-29 12:56 | disposition home or self-care (01) ==
LOC: LBO 12:55
PROVIDERS: PCP Nurse Practitioner Family; Visit Provider Obstetrics & Gynecology
DX: F41.9 Anxiety disorder, unspecified (principal)
CPT/HCPCS: 36415; 84443

== ENCOUNTER 2024-07-23 08:13 | Outpatient (CLI) | payer BC, SELFPAY ==
[2024-07-23 18:24] LABS: Prolactin 7.9 ng/mL (See Note)
== END 2024-07-23 08:14 | disposition home or self-care (01) ==
LOC: LBO 08:13
PROVIDERS: PCP Nurse Practitioner Family; Visit Provider Obstetrics & Gynecology
DX: N64.52 Nipple discharge (principal)
CPT/HCPCS: 36415; 84146

== ENCOUNTER 2024-08-06 01:49 | Outpatient (CLI) | payer BC, SELFPAY ==
--- NOTE | 2024-08-06 07:30 | DI.MAMMO_ITS ---
Exam(s) US BREAST LT COMPLETE MG MAMMO DIAGNOSTIC BI EXAM: MG MAMMO DIAGNOSTIC BI CLINICAL HISTORY: nipple Discharge,lt breast pain,n64.52,n64.4. COMPARISON: MG MG MAMMO DIAGNOSTIC BI from 09/03/2022 US US BREAST RT COMPLETE from 09/03/2022 MG MG MAMMO DIAGNOSTIC UNI from 03/12/2023 MG MG MAMMO DIAGNOSTIC BI from 10/29/2023 TECHNIQUE: Craniocaudal and mediolateral oblique Full Field Digital Mammography views of both breast s with Computer Aided Diagnosis followed by Tomosynthesis and left breast ultrasound. FINDINGS: Mammography/Tomosynthesis: Masses: None seen. Architectural Distortion: None seen. Microcalcifications: No suspicious pleomorphic-type are seen. Skin Thickening/Nipple Retraction: None. Left breast US: Echotexture: Normal appearance of the glandular tissue. Shadowing: No suspicious foci. Cyst: None. Solid lesions: None seen. Ductal dilation: None. IMPRESSION: 1. No evidence of malignancy is noted. 2. Unless there is more urgent need, follow-up screening mammography is recommended, as per [employer] guidelines. BI-RADS Category 1 - Negative Breast Density - Category C - The breast are heterogeneously dense, which may obscure small masses. Breast density Category C or D implies that the patient has dense breast tissue. Dense breast tissue can make it harder to find cancer on a mammogram. Dense breast tissue is also associated with an incr eased risk of breast cancer. This information about the result of the mammogram report was provided to the patient to raise their awareness. Use this report when you speak with the patient about their risks for breast cancer, which includes their family history. At that time, you may recommend additional screening tests (Ultrasoun d or MRI) as these tests may add significant information. A negative radiographic report should not delay biopsy if a dominant or clinically suspicious mass is present. Up to ten percent of cancers are not identified on mammography. A negative report may reinforce clinical impression. Adenosis and dense breasts may obscure an underlying neoplasm. False positive reports average 6 to 10%. Patient will receive a letter notifying them of these results.
== END 2024-08-06 02:09 ==
LOC: DI 01:49
PROVIDERS: PCP Nurse Practitioner Family; Visit Provider Obstetrics & Gynecology
DX: N64.4 Mastodynia (principal); N64.52 Nipple discharge; Z12.31 Encounter for screening mammogram for malignant neoplasm of breast
CPT/HCPCS: 76642; 77062; 77066; G0279

== ENCOUNTER 2024-09-07 13:47 | Outpatient (REF) | payer BC, SELFPAY ==
[2024-09-07 15:31] LABS: Abs Immature Grans 0.02 10^3/uL (0.0-0.06); Absolute Basophil Count 0.03 10^3/uL (0.0-0.2); Absolute Eosinophil Count 0.12 10^3/uL (0.0-0.7); Absolute Lymphocyte Count 1.83 10^3/uL (1.2-3.4); Absolute Monocyte Count 0.48 10^3/uL (0.1-0.8); Absolute Neutrophil Count 4.52 10^3/uL (1.2-6.7); Basophils % 0.4 %; Eosinophils % 1.7 %; HCT 41.4 % (36.0-46.0); HGB 14.8 g/dL (11.2-15.7); Immature Grans % 0.3 %; Lymphocytes % 26.1 %; MCH 30.6 pg (27.0-33.0); MCHC 35.7 % (32.0-36.0); MCV 86 fL (80-95); MPV 11.8 fL (8.0-11.0); Monocytes % 6.9 %; Neutrophils % 64.6 %; Platelet Count 257 10^3/uL (130-400); RBC 4.84 10^6/uL (3.93-5.22); RDW 11.8 % (11.7-14.6); RDW-SD 36.5 fL
[2024-09-07 15:43] LABS: Iron 129 ug/dL (50-170); Total Iron Binding Capacity 298 ug/dL (250-450); Transferrin Sat 43 % (15-50)
[2024-09-07 15:56] LABS: Anion Gap 8.3 mmol/L (3-11); BUN 18 mg/dL (7-18); CO2 28.7 mmol/L (21.0-32.0); CREATININE 0.5 mg/dL (0.55-1.02); Calcium 9.4 mg/dL (8.5-10.1); Chloride 100 mmol/L (98-107); Estimated GFR 123.81 (mL/min/1.73m2); Ferritin 52 ng/mL (8-252); Glucose 85 mg/dL (74-106); Potassium 4.2 mmol/L (3.5-5.1); Sodium 137 mmol/L (136-145)
== END 2024-09-07 13:48 | disposition home or self-care (01) ==
LOC: NCHCN 13:47
PROVIDERS: PCP Nurse Practitioner Family; Visit Provider Nurse Practitioner Family
DX: R51.9 Headache, unspecified (principal)
CPT/HCPCS: 80048; 82728; 83540; 83550; 85025